=== PATIENT | male | born 1940 | race Caucasian/White ===

== ENCOUNTER 2018-03-07 16:31 | Emergency (ER) | payer MEDICARE, OTHER, SELFPAY ==
[2018-03-07 16:52] VITALS: BP 157/88; PULSE 78; RESP 20; TEMP 36.6; O2SAT 96; BMI 30.4
--- NOTE | 2018-03-07 18:19 | PC.NURSE ---
pt reports several weeks of intermittent rt side low back/flank pain, reports worsening with supine position when at its worst, pt states he believes this began after a procedure in which he describes a urinary catheter placement and removal, also reports urinary dribbling that has worsened since this procedure. Abd large/round/soft/nontender, denies nausea/vomiting/diarrhea/dysuria/fever/trauma or other sx
[2018-03-07 18:29] LABS: Appearance Urine UA CLEAR; Bilirubin Urine UA NEGATIVE (NEGATIVE); Color Urine UA YELLOW; Glucose Urine UA 1+ g/dL (Normal); Ketones Urine UA NEGATIVE (NEGATIVE); Leukocyte Esterase Urine UA 1+ (NEGATIVE); Nitrite Urine UA Negative (Negative); Occult Blood Urine UA TRACE-LYSED (Negative); Protein Urine UA TRACE (Negative); Specific Gravity Urine UA 1.025 (1.000-1.035); Urobilinogen Urine UA 0.2 E.U./dL (0.2)
[2018-03-07 18:30] VITALS: BP 154/71; PULSE 81; RESP 17; O2SAT 97
[2018-03-07 18:41] LABS: Amorphous Sediment Urine 1+; Bacteria Urine Few (2-10); Culture Indicated Urine Specimen Cultured; Mucus Urine 2+ (Negative); RBC Urine 0-1/HPF (0-5/HPF); Squamous Epithelial Cell Urine 5-10 /HPF; WBC Urine 10-30/HPF (0-5/HPF)
[2018-03-07 20:01] VITALS: BP 153/79; PULSE 84; RESP 18; O2SAT 97
--- NOTE | 2018-03-08 02:13 | ED_ITS ---
HPI - Back Pain/Injury General Chief Complaint: Back Pain/Injury Stated Complaint: PAIN FEELS LIKE KIDNEY Time Seen by Provider: 03/07/18 17:26 Source: patient and family Mode of arrival: ambulatory Limitations: no limitations History of Present Illness HPI Narrative: 77-year-old male presents with a history of a few days of dysuria , frequency and urgency and now left back pain. He denies systemic symptoms such as fever, chills nor nausea or vomiting. He is otherwise well and free of complaint. His pain is worse with motion and improves with rest. MD Complaint: back pain Onset (ago): day(s) Duration: constant Similar Symptoms Previously: No Location: left flank Severity: moderate Radiation: none Relieving factors: none Exacerbating factors: none Associated symptoms: denies other symptoms Related Data Home Medications Medication Instructions Recorded Confirmed lisinopril-hydrochlorothiazide 1 tab PO QDAY #0 10/07/16 03/07/18 aspirin 81 mg PO QDAY #0 01/14/17 bisacodyl [Correctol] 2 tab PO HSP PRN #0 01/14/17 buspirone 1 tab PO BID 03/07/18 03/07/18 carvedilol 1 tab PO DAILY 03/07/18 03/07/18 citalopram 20 mg PO DAILY 03/07/18 03/07/18 clopidogrel 75 mg PO DAILY 03/07/18 03/07/18 insulin glargine [Lantus Solostar 30 units SUB-Q QPM 03/07/18 03/07/18 U-100 Insulin] pantoprazole 1 tab PO DAILY 03/07/18 03/07/18 pravastatin 20 mg PO DAILY 03/07/18 03/07/18 terazosin 1 mg PO DAILY 03/07/18 03/07/18 Previous Rx's Medication Instructions Recorded cephalexin [Keflex] 500 mg PO QID 14 Days #56 cap 03/07/18 ibuprofen 600 mg PO TID-QID PRN #20 tab 03/07/18 Allergies Allergy/AdvReac Type Severity Reaction Status Date / Time Sulfa (Sulfonamide Allergy Mild CHILDHOOD Verified 03/07/18 16:58 Antibiotics) REACTION Review of Systems Review of Systems All systems reviewed & are unremarkable except as noted in HPI and below Constitutional Denies chills, Denies fever(s), Denies lethargy and Denies weakness Eyes Denies change in vision, Denies eye discharge, Denies irritation and Denies loss of vision ENT Ears, Nose, Mouth, and Throat: Denies change in voice, Denies neck pain and Denies sore throat Cardiovascular Denies chest pain, Denies irregular heart rhythm, Denies lightheadedness, Denies palpitations, Denies dyspnea, Denies dyspnea on exertion and Denies orthopnea Respiratory Denies cough, Denies dyspnea, Denies dyspnea on exertion and Denies wheezing Gastrointestinal Gastrointestinal: Denies abdominal pain, Denies change in bowel habits, Denies diarrhea, Denies nausea and Denies vomiting Genitourinary Denies hematuria, Reports flank pain, Reports urinary frequency, Denies urinary incontinence and Reports urinary urgency Musculoskeletal Denies neck pain Integumentary/Breasts Denies pruritus, Denies erythema, Denies rash and Denies wounds Neurologic Denies confusion, Denies loss of vision and Denies weakness Psychiatric Denies anxiety, Denies confusion, Denies depression, Denies homicidal ideation and Denies suicidal ideation Endocrine Denies palpitations Hematologic/Lymphatic Denies easy bruising Allergic/Immunologic Denies wheezing [facility] Social History Smoking Status: Former smoker Exam Narrative Exam Narrative: GEN: AOx3 and in mild distress EYES: Pupils are equal, round, and reactive to light and accommodation. Extraoccular muscles are intact bilaterally. There is no subconjunctival hemorrhage or exudate. CHEST: Lungs are clear to auscultation bilaterally and free of wheezes, rales, or rhonchi. Heart rate is regular rhythm, there are no murmurs, clicks, rubs, or gallops. There is no chest wall tenderness. ABD: Abdomen is soft and nontender. There is no guarding or rebound. Bowel sounds are normal in all 4 quadrants. There is no mass or organomegaly. EXT: Full painless ROM of all extremities with no loss of sensation or strength. SKIN: Warm, pink, and dry. No erythema or rash BACK: indigo vat tender cloth but free of any obvious external abnormalities. Patient exam notes decreased range of motion and mild left CVA tenderness, but no vertebral point tenderness. There are no symptoms of cauda equina such as saddle anesthesia, and decreased reflexes, decreased sensation or strength. Initial Vital Signs Initial Vital Signs: Vital Signs Temperature 97.8 F 03/07/18 16:52 Pulse Rate 78 03/07/18 16:52 Respiratory Rate 20 03/07/18 16:52 Blood Pressure 157/88 H 03/07/18 16:52 Pulse Oximetry 96 03/07/18 16:52 Course Orders Ordered: ED Orders 03/07/18 18:24 Urinalysis and Microscopic Stat Urine Culture Stat Vital Signs - 8 hr 03/07/18 18:30 03/07/18 20:01 Pulse Rate 81 84 Respiratory Rate 17 18 Blood Pressure 153/79 H Blood Pressure [Right Arm] 154/71 H Pulse Oximetry 97 97 MDM - Back Pain/Injury Differential Diagnosis Differential diagnosis: Likely renal colic, pyelonephritis, thoracic back pain and AAA Medical Records Attestation: I reviewed the patient's medical records. Lab Data Attestation: I reviewed the patient's lab results. Lab Results 03/07/18 Range/Units 18:24 Urine Color Yellow Urine Appearance Clear Urine pH 5.0 (4.5-8.0) Ur Specific [place] 1.025 (1.000-1.035) Urine Protein Trace H (Negative) Urine Glucose (UA) 1+ (Normal) g/dL Urine Ketones Negative (NEGATIVE) Urine Occult Blood Trace-lysed (Negative) Urine Nitrate Negative (Negative) Urine Bilirubin Negative (NEGATIVE) Urine Urobilinogen 0.2 (0.2) E.U./dL Ur Leukocyte Esterase 1+ H (NEGATIVE) Urine RBC 0-1/hpf (0-5/HPF) Urine WBC 10-30/hpf H (0-5/HPF) Ur Squamous Epith Cells 5-10 /hpf H Amorphous Sediment 1+ Urine Bacteria Few (2-10) H (None) Urine Mucus 2+ H (Negative) Ur Culture Indicated? Specimen cultured Micro UA Comment Not Reportable Discharge Plan Departure Patient Disposition: Home Clinical Impression: Acute pyelonephritis Discharge Date/Time: 03/07/18 20:01 Interventions: ED Discharge Assessment Last Done: 03/07/18 20:01 Instructions: DI for Kidney Infection Activity Restrictions/Additional Instructions: *You have been diagnosed with [ acute pyelonephritis with right flank pain] *What to do: *Take medications as directed *Follow up with your primary care provider in 2-3 days, call for an appointment. Let them know you were seen in the Emergency Department and that we ask that you be seen in follow up *Return to ER if you should have any new, worsening or concerning symptoms , such as [fever over 101, shaking chills, weakness, nausea and vomiting, other bothersome symptoms ] Prescriptions: New cephalexin [Keflex] 500 mg capsule 500 mg PO QID 14 Days Qty: 56 RF: 0 ibuprofen 600 mg tablet 600 mg PO TID-QID PRN (Reason: pain) Qty: 20 RF: 0 No Action lisinopril-hydrochlorothiazide 20 MG/25 MG tablet 1 tab PO QDAY Qty: 0 RF: 0 aspirin 81 MG tablet,delayed release (DR/EC) 81 mg PO QDAY Qty: 0 RF: 0 bisacodyl [Correctol] 5 MG tablet 2 tab PO HSP PRNQty: 0 RF: 0 carvedilol 12.5 mg tablet 1 tab PO DAILY RF: 0 clopidogrel 75 mg tablet 75 mg PO DAILY RF: 0 terazosin 1 mg capsule 1 mg PO DAILY RF: 0 citalopram 20 mg tablet 20 mg PO DAILY RF: 0 pantoprazole 40 mg tablet,delayed release (DR/EC) 1 tab PO DAILY RF: 0 buspirone 10 mg tablet 1 tab PO BID RF: 0 pravastatin 20 mg tablet 20 mg PO DAILY RF: 0 insulin glargine [Lantus Solostar U-100 Insulin] 100 unit/mL (3 mL) insulin pen 30 units Sub-Q QPM RF: 0
== END 2018-03-07 20:01 | disposition home or self-care (01) ==
PROVIDERS: Emergency Provider Emergency Medicine
DX: N10 Acute pyelonephritis (principal)
CPT/HCPCS: 81001; 87086; 87147; 87186; 99282; 99283

== ENCOUNTER 2018-07-10 13:39 | Emergency (ER) | payer MEDICARE, OTHER, SELFPAY ==
[2018-07-10 13:43] VITALS: BP 193/123; PULSE 102; RESP 18; TEMP 37.4; O2SAT 96; BMI 28.8
--- NOTE | 2018-07-10 14:45 | DI.RAD.S_ITS ---
PROCEDURE: XR LUMBAR SPINE 2-3V INDICATIONS: fall with hip/back pain TECHNIQUE: 3 views of the lumbar spine were acquired. COMPARISON: [facility], CT, L-SPINE WITHOUT CONTRAST, 10/05/2016, 17:13. FINDINGS: Bones: 5 [id number] vertebrae are present. There is normal bony alignment. No vertebral body compression fractures. No suspicious bony lesions. There is moderate degenerative disc disease in lumbar spine and multiple large osteophytes. There is severe facet arthropathy at L3 and L4, L4-L5 and L5-S1. Soft tissues: Overlying bowel gas pattern is normal. Vascular calcifications consistent with atherosclerosis. IMPRESSION: 1. No fractures. 2. Degenerative disc and facet disease. Dictated by: John Olivares M.D. on 07/10/2018 at 15:22 Approved by: John Olivares M.D. on 07/10/2018 at 15:35
--- NOTE | 2018-07-10 14:45 | DI.RAD.S_ITS ---
PROCEDURE: XR HIP W PEL IF DONE RT 2V INDICATIONS: fall with hip, back pain TECHNIQUE: AP pelvis with lateral view(s) of the right hip(s). COMPARISON: [facility], , ABDOMEN ACUTE SERIES, 01/30/2016, 13:45. FINDINGS: Bones: No fractures or dislocations. Pelvic ring appears intact. No suspicious bony lesions. Soft tissues: The visualized bowel gas pattern is normal. No suspicious soft tissue calcifications. IMPRESSION: No fracture or dislocation. If clinical symptoms persist, a repeat examination in 7-10 days, or advanced imaging such as CT or MRI is suggested for further evaluation. Dictated by: John Olivares M.D. on 07/10/2018 at 15:19 Approved by: John Olivares M.D. on 07/10/2018 at 15:20
--- NOTE | 2018-07-10 14:54 | ED_ITS ---
HPI - Fall General Chief Complaint: Fall Stated Complaint: Severe hip/leg pain, urinary issues Time Seen by Provider: 07/10/18 14:15 Source: patient and family Mode of arrival: other Limitations: no limitations History of Present Illness HPI Narrative: 78-year-old former smoker presents with a chief complaint of ongoing right hip and low back pain after a ground level fall few weeks ago. He was kneeling on the ground and fell awkwardly to his side is had significant pain ever since. He requires a walker to ambulate safely. He denies any other falls. He denies any change in bowel or bladder control. He denies numbness or tingling but does have pain that radiates down his lateral thigh. complaint: fall Onset (ago): week(s) Fall from: other Fall witnessed: yes, by family Place fall occurred: home Loss of consciousness: none Prolonged down time: no Symptoms prior to fall: none Context: tripped/slipped Location of injury - extremities: Right: thigh Quality: burning, sharp and aching Associated symptoms (after fall): denies Related Data Home Medications Medication Instructions Recorded Confirmed lisinopril-hydrochlorothiazide 1 tab PO QDAY #0 10/07/16 03/07/18 aspirin 81 mg PO QDAY #0 01/14/17 bisacodyl [Correctol] 2 tab PO HSP PRN #0 01/14/17 buspirone 1 tab PO BID 03/07/18 03/07/18 carvedilol 1 tab PO DAILY 03/07/18 03/07/18 citalopram 20 mg PO DAILY 03/07/18 03/07/18 clopidogrel 75 mg PO DAILY 03/07/18 03/07/18 insulin glargine [Lantus Solostar 30 units SUB-Q QPM 03/07/18 03/07/18 U-100 Insulin] pantoprazole 1 tab PO DAILY 03/07/18 03/07/18 pravastatin 20 mg PO DAILY 03/07/18 03/07/18 terazosin 1 mg PO DAILY 03/07/18 03/07/18 Previous Rx's Medication Instructions Recorded ibuprofen 600 mg PO TID-QID PRN #20 tab 03/07/18 cyclobenzaprine 10 mg PO TID PRN #14 tab 07/10/18 oxycodone 5 mg PO Q4-6H PRN #14 tab 07/10/18 Allergies Allergy/AdvReac Type Severity Reaction Status Date / Time Sulfa (Sulfonamide Allergy Mild CHILDHOOD Verified 07/10/18 13:48 Antibiotics) REACTION Review of Systems Review of Systems All systems reviewed & are unremarkable except as noted in HPI and below Constitutional Denies chills, Denies fever(s), Denies lethargy and Denies weakness Eyes Denies change in vision, Denies eye discharge, Denies irritation and Denies loss of vision ENT Ears, Nose, Mouth, and Throat: Denies change in voice, Denies neck pain and Denies sore throat Cardiovascular Denies chest pain, Denies irregular heart rhythm, Denies lightheadedness, Denies palpitations, Denies dyspnea, Denies dyspnea on exertion and Denies orthopnea Respiratory Denies cough, Denies dyspnea, Denies dyspnea on exertion and Denies wheezing Gastrointestinal Gastrointestinal: Denies abdominal pain, Denies change in bowel habits, Denies diarrhea, Denies nausea and Denies vomiting Genitourinary Denies hematuria, Denies flank pain, Denies urinary incontinence and Denies urinary urgency Musculoskeletal Reports back pain and Denies neck pain Integumentary/Breasts Denies pruritus, Denies erythema, Denies rash and Denies wounds Neurologic Denies confusion, Denies loss of vision and Denies weakness Psychiatric Denies anxiety, Denies confusion, Denies depression, Denies homicidal ideation and Denies suicidal ideation Endocrine Denies palpitations Hematologic/Lymphatic Denies easy bruising Allergic/Immunologic Denies wheezing Exam Narrative Exam Narrative: GEN: 78M is in moderate distress, clutching his R hip EYES: Pupils are equal, round, and reactive to light and accommodation. Extraoccular muscles are intact bilaterally. There is no subconjunctival hemorrhage or exudate. CHEST: Lungs are clear to auscultation bilaterally and free of wheezes, rales, or rhonchi. Heart rate is regular rhythm, there are no murmurs, clicks, rubs, or gallops. There is no chest wall tenderness. ABD: Abdomen is soft and nontender. There is no guarding or rebound. Bowel sounds are normal in all 4 quadrants. There is no mass or organomegaly. EXT: Decreased range of motion at right hip, worse with motion improved with rest. No numbness, tingling or weakness. SKIN: Warm, pink, and dry. No erythema or rash BACK: glass cleaning machine tender but free of any obvious external abnormalities. Patient exam notes decreased range of motion and muscle spasm, but no CVA tenderness, or vertebral point tenderness. There are no symptoms of cauda equina such as saddle anesthesia, and decreased reflexes, decreased sensation or strength. Initial Vital Signs Initial Vital Signs: Vital Signs Temperature 99.3 F 07/10/18 13:43 Pulse Rate 102 H 07/10/18 13:43 Respiratory Rate 18 07/10/18 13:43 Blood Pressure 193/123 H 07/10/18 13:43 Pulse Oximetry 96 07/10/18 13:43 PFS Social History Smoking Status: Former smoker Course Orders Ordered: ED Orders 07/10/18 14:45 XR hip w pel if done RT 2V Stat XR lumbar spine 2-3V Stat 07/10/18 15:42 CT pelvis wo con Stat Discontinued Medications Cyclobenzaprine HCl (Flexeril 10 Mg Prepack) 1 bottle MISC SEEINSTR ONE Stop: 07/10/18 17:31 Oxycodone/Acetaminophen (Percocet 5/325) 1 tab PO NOW ONE Stop: 07/10/18 14:46 Last Admin: 07/10/18 15:12 Dose: 1 tab Oxycodone/Acetaminophen (Endocet 5/325 Prepack) 1 bottle MISC SEEINSTR ONE Stop: 07/10/18 17:31 Vital Signs - 8 hr 07/10/18 13:43 Temperature 99.3 F Pulse Rate 102 H Respiratory Rate 18 Blood Pressure 193/123 H Pulse Oximetry 96 [facility] Medical Records Attestation: I reviewed the patient's medical records. Imaging Data pelvic CT: Radiologist's impression: [address] [address] [address] Scan Report Signed Patient: Morro Diaz MR#: [id number] : 1940 Acct:[id number] Age/Sex: 78 / M Date of Service: 07/10/18 Loc: ED Accession Number: [id number] Procedure: CT pelvis wo con Ordering Provider: Jonatan Sparks D.O. PROCEDURE: CT PEL WO CON INDICATIONS: severe R hip pain TECHNIQUE: Noncontrast 3 mm axial sections acquired through the bony pelvis, with coronal and sagittal reformatting. COMPARISON: [facility], CR, PELVIS W UNILATERAL HIP LEFT, 07/31/2013, 15: 25. [facility], CR, XR HIP W PEL IF DONE RT 2V, 07/10/2018, 14:59. FINDINGS: Image quality: Excellent. Bones: No fracture or dislocation. There is moderate symmetric bilateral hip joint degeneration. There are multiple osteophytes arising from greater trochanters. Soft tissues: No soft tissue mass or hematoma. There is deformity and calcification of the right rectus abdominis muscle, probably sequelae of old trauma or surgery. Bladder is semi-contracted. Bladder wall appears thickened. There is enlargement and calcification of the prostate. IMPRESSION: 1. No fractures. If clinical symptoms persist and clinical suspicion for internal derangement of the right hip joint is high, nonurgent MR hip arthrogram is suggested for further evaluation. 2. Bilateral moderate hip joint degeneration. 3. Multiple large osteophytes arising from greater trochanters bilaterally. 4. Deformity and calcification of right rectus abdominis muscle, likely sequelae of old trauma or surgery. Recommend clinical correlation. 5. Question of bladder wall thickening, which may be secondary to bladder outlet obstruction or cystitis. 6. Enlarged prostate. Dictated by: John Olivares M.D. on 07/10/2018 at 17:09 Approved by: John Olivares M.D. on 07/10/2018 at 17:19 MDM Narrative Medical decision making narrative: 78-year-old with right hip pain after fall has negative x-ray and CT suggesting low likelihood of bony injury. He does have some radiation of pain along his lateral thigh which raises the suspicion of a muscular problem in his low back. He does feel some relief with Percocet Discharge Plan Departure Patient Disposition: Home Clinical Impression: Acute hip pain Instructions: DI for Hip Pain Activity Restrictions/Additional Instructions: *You have been diagnosed with [ acute right hip pain ] *What to do: *Take medications as directed *Follow up with your primary care provider in 2-3 days, call for an appointment. Let them know you were seen in the Emergency Department and that we ask that you be seen in follow up *Return to ER if you should have any new, worsening or concerning symptoms Prescriptions: New cyclobenzaprine 10 mg tablet 10 mg PO TID PRN (Reason: muscle spasm) Qty: 14 RF: 0 oxycodone 5 mg tablet 5 mg PO Q4-6H PRN (Reason: pain) Qty: 14 RF: 0 No Action lisinopril-hydrochlorothiazide 20 MG/25 MG tablet 1 tab PO QDAY Qty: 0 RF: 0 aspirin 81 MG tablet,delayed release (DR/EC) 81 mg PO QDAY Qty: 0 RF: 0 bisacodyl [Correctol] 5 MG tablet 2 tab PO HSP PRNQty: 0 RF: 0 carvedilol 12.5 mg tablet 1 tab PO DAILY RF: 0 clopidogrel 75 mg tablet 75 mg PO DAILY RF: 0 terazosin 1 mg capsule 1 mg PO DAILY RF: 0 citalopram 20 mg tablet 20 mg PO DAILY RF: 0 pantoprazole 40 mg tablet,delayed release (DR/EC) 1 tab PO DAILY RF: 0 buspirone 10 mg tablet 1 tab PO BID RF: 0 pravastatin 20 mg tablet 20 mg PO DAILY RF: 0 insulin glargine [Lantus Solostar U-100 Insulin] 100 unit/mL (3 mL) insulin pen 30 units Sub-Q QPM RF: 0 ibuprofen 600 mg tablet 600 mg PO TID-QID PRN (Reason: pain) Qty: 20 RF: 0
[2018-07-10] MEDS: OXYCODONE/ACETAMINOPHEN 5/325 TABLET 1 TAB PO (15:12)
--- NOTE | 2018-07-10 15:42 | DI.CT.S_ITS ---
PROCEDURE: CT PEL WO CON INDICATIONS: severe R hip pain TECHNIQUE: Noncontrast 3 mm axial sections acquired through the bony pelvis, with coronal and sagittal reformatting. COMPARISON: [facility], CR, PELVIS W UNILATERAL HIP LEFT, 07/31/2013, 15:25. [facility], CR, XR HIP W PEL IF DONE RT 2V, 07/10/2018, 14:59. FINDINGS: Image quality: Excellent. Bones: No fracture or dislocation. There is moderate symmetric bilateral hip joint degeneration. There are multiple osteophytes arising from greater trochanters. Soft tissues: No soft tissue mass or hematoma. There is deformity and calcification of the right rectus abdominis muscle, probably sequelae of old trauma or surgery. Bladder is semi-contracted. Bladder wall appears thickened. There is enlargement and calcification of the prostate. IMPRESSION: 1. No fractures. If clinical symptoms persist and clinical suspicion for internal derangement of the right hip joint is high, nonurgent MR hip arthrogram is suggested for further evaluation. 2. Bilateral moderate hip joint degeneration. 3. Multiple large osteophytes arising from greater trochanters bilaterally. 4. Deformity and calcification of right rectus abdominis muscle, likely sequelae of old trauma or surgery. Recommend clinical correlation. 5. Question of bladder wall thickening, which may be secondary to bladder outlet obstruction or cystitis. 6. Enlarged prostate. Dictated by: John Olivares M.D. on 07/10/2018 at 17:09 Approved by: John Olivares M.D. on 07/10/2018 at 17:19
[2018-07-10 17:49] VITALS: BP 196/73; PULSE 69; RESP 16; O2SAT 97
[2018-07-10] MEDS: OXYCODONE/APAP 5/325 PREPACK 1 BOTTLE MISC (17:49)
[2018-07-10] MEDS: CYCLOBENZAPRINE 10 MG PREPACK 1 BOTTLE MISC (17:49)
== END 2018-07-10 18:11 | disposition home or self-care (01) ==
PROVIDERS: Emergency Provider Emergency Medicine
DX: M25.559 Pain in unspecified hip (principal)
CPT/HCPCS: 51798; 72100; 72192; 73502; 81003; 99283; 99284

== ENCOUNTER 2018-07-15 11:06 | Emergency (ER) | payer MEDICARE, OTHER, SELFPAY ==
[2018-07-15 11:13] VITALS: BP 204/107; PULSE 95; RESP 19; TEMP 36.8; O2SAT 96
--- NOTE | 2018-07-15 11:23 | ED.BACK ---
HPI - Back Pain/Injury General Chief Complaint: Back Pain/Injury Stated Complaint: Back Pain / GLF last week Time Seen by Provider: 07/15/18 11:23 Source: patient and old records reviewed Mode of arrival: EMS (but able to get off gurney and get onto bed without issue) Limitations: no limitations History of Present Illness HPI Narrative: This a 78-year-old male who comes to the emergency department with complaint of back pain. Patient states he was sitting on the floor and that he did not have a fall. He states he twisted and had exacerbation of his chronic back pain. Patient states that he has not had any other recent falls or injuries. He has had falls in the past and had injuries to his back. Patient states it is the right lower back, it is worse with motion. Patient denies any new loss of bowel or bladder control. Patient denies any new weakness in his lower extremities, he denies any numbness or tingling in his extremities. He denies any chest pain, shortness of breath, nausea vomiting or other symptoms. Patient was able to get up off the EMS gurney and was able to get onto the bed without issue. Related Data Home Medications Medication Instructions Recorded Confirmed bisacodyl [Correctol] 2 tab PO BEDTIME PRN #0 01/14/17 07/15/18 buspirone 1 tab PO BID 03/07/18 07/15/18 carvedilol 1 tab PO DAILY 03/07/18 07/15/18 citalopram 20 mg PO DAILY 03/07/18 07/15/18 clopidogrel 75 mg PO DAILY 03/07/18 07/15/18 insulin glargine [Lantus Solostar 35 units SUB-Q QPM 03/07/18 07/15/18 U-100 Insulin] pantoprazole 1 tab PO DAILY 03/07/18 07/15/18 pravastatin 20 mg PO QPM 03/07/18 07/15/18 terazosin 1 mg PO DAILY 03/07/18 07/15/18 trazodone 50 mg PO QPM 07/15/18 07/15/18 Previous Rx's Medication Instructions Recorded ibuprofen 600 mg PO TID-QID PRN #20 tab 03/07/18 cyclobenzaprine 10 mg PO TID PRN #14 tab 12/23/18 oxycodone 5 mg PO Q4-6H PRN #14 tab 07/10/18 Allergies Allergy/AdvReac Type Severity Reaction Status Date / Time Sulfa (Sulfonamide Allergy Mild CHILDHOOD Verified 07/10/18 13:48 Antibiotics) REACTION Review of Systems Review of Systems All systems reviewed & are unremarkable except as noted in HPI and below Constitutional Denies fever(s) ENT Ears, Nose, Mouth, and Throat: Denies neck pain Cardiovascular Denies chest pain and Denies dyspnea Respiratory Denies dyspnea Gastrointestinal Gastrointestinal: Denies abdominal pain, Denies change in bowel habits, Denies fecal incontinence, Denies diarrhea, Denies nausea and Denies vomiting Genitourinary Denies hematuria, Denies flank pain, Reports urinary incontinence and Denies urinary urgency Musculoskeletal Denies abnormal gait, Reports back pain, Denies arthralgias, Reports limited range of motion, Denies muscle weakness, Denies neck pain, Denies numbness, Denies radiating pain into limb and Denies tingling Integumentary/Breasts Denies erythema and Denies unusual bruising Neurologic Denies abnormal gait, Denies focal weakness, Denies numbness, Denies sensory deficit and Denies tingling [facility] Social History Smoking Status: Former smoker Exam Narrative Exam Narrative: GENERAL: Alert and oriented x three, elderly male in mild distress. HEENT: Head normocephalic, atraumatic, EOMI, pupils reactive, face symmetric, moist mucous membranes NECK: Supple, full range of motion CARDIOVASCULAR: Regular rate and rhythm without murmurs, rubs or gallops. RESPIRATORY: Breath sounds equal bilaterally, no wheezes rales or rhonchi. ABDOMEN: Soft, nontender. Normoactive bowel sounds all 4 quadrants. No guarding or rebound, rigidity, no mass : No CVA tenderness BACK: No cervical, thoracic or lumbar vertebral point tenderness. Patient has normal range of motion, patient is able to roll over in the bed without any assistance. Patient's gait is normal. Rectal exam is deferred. Muscle strength is 5/5 in lower extremities, DTRs are 2/4 and lower extremities. Dorsalis pedis and tibialis pulses are 2+ and lower extremities. Sensation is intact in the lower extremities. EXTREMITIES: Normal range of motion, no clubbing or edema. Neurovascularly intact NEUROLOGICAL: Cranial nerves II through XII grossly intact. Moving all extremities SKIN: Warm, dry, no petechiae, no rashes or lesions. Initial Vital Signs Initial Vital Signs: Vital Signs Temperature 98.2 F 07/15/18 11:13 Pulse Rate 95 H 07/15/18 11:13 Respiratory Rate 19 07/15/18 11:13 Blood Pressure 204/107 H 07/15/18 11:13 Pulse Oximetry 96 07/15/18 11:13 Course Orders Ordered: Discontinued Medications Cyclobenzaprine HCl (Flexeril) 10 mg PO NOW ONE Stop: 07/15/18 11:24 Last Admin: 07/15/18 11:48 Dose: 10 mg Oxycodone/Acetaminophen (Percocet 5/325) 1 tab PO NOW ONE Stop: 07/15/18 11:24 Last Admin: 07/15/18 11:48 Dose: 1 tab Vital Signs - 8 hr 07/15/18 11:13 07/15/18 12:42 07/15/18 14:09 Temperature 98.2 F Pulse Rate 95 H 85 Respiratory Rate 19 15 Blood Pressure 204/107 H 139/75 Blood Pressure [Right Arm] 178/83 H Pulse Oximetry 96 96 MDM - Back Pain/Injury MDM Narrative Medical decision making narrative: Patient's prior visits were reviewed, he has had recent imaging of his back which did not show any acute fractures but did show a lot of arthritic changes. Patient also responded well to oxycodone in the emergency department and was given a dose here as well as Flexeril. Patient was able to sleep and then ambulated about department without issue. Called who states he has not had his normal meds or back pain medication today. Plan for discharge home as patient has improved without any signs of serious trauma or illness today. Patient was hypertensive but blood pressure improved while in department, was still elevated but not to such as significant level. Patient can restart medications at home. Discharge Plan Departure Patient Disposition: Home Clinical Impression: Back pain Discharge Date/Time: 07/15/18 14:10 Interventions: ED Discharge Assessment Last Done: 07/15/18 14:09 Instructions: DI for Low Back Pain Activity Restrictions/Additional Instructions: Follow up with your physician in the next 2-3 days for recheck. Continue to take your back pain medication as prescribed. I would try taking this before becoming to the ER if you're having symptoms. Return to the ER for worsening symptoms, fevers, altered mental status, new chest pain, shortness of breath, passing out, new weakness, numbness or loss of feeling in your extremities, difficulty with movement or other new or concerning symptoms. Prescriptions: No Action bisacodyl [Correctol] 5 MG tablet 2 tab PO BEDTIME PRN (Reason: Constipation) Qty: 0 RF: 0 carvedilol 12.5 mg tablet 1 tab PO DAILY RF: 0 clopidogrel 75 mg tablet 75 mg PO DAILY RF: 0 terazosin 1 mg capsule 1 mg PO DAILY RF: 0 citalopram 20 mg tablet 20 mg PO DAILY RF: 0 pantoprazole 40 mg tablet,delayed release (DR/EC) 1 tab PO DAILY RF: 0 buspirone 10 mg tablet 1 tab PO BID RF: 0 pravastatin 20 mg tablet 20 mg PO QPM RF: 0 insulin glargine [Lantus Solostar U-100 Insulin] 100 unit/mL (3 mL) insulin pen 35 units Sub-Q QPM RF: 0 ibuprofen 600 mg tablet 600 mg PO TID-QID PRN (Reason: pain) Qty: 20 RF: 0 cyclobenzaprine 10 mg tablet 10 mg PO TID PRN (Reason: muscle spasm) Qty: 14 RF: 0 oxycodone 5 mg tablet 5 mg PO Q4-6H PRN (Reason: pain) Qty: 14 RF: 0 trazodone 50 mg tablet 50 mg PO QPM RF: 0
[2018-07-15] MEDS: OXYCODONE/ACETAMINOPHEN 5/325 TABLET 1 TAB PO (11:48)
[2018-07-15] MEDS: CYCLOBENZAPRINE 10 MG TABLET PO (11:48)
[2018-07-15 12:42] VITALS: BP 178/83
[2018-07-15 14:09] VITALS: BP 139/75; PULSE 85; RESP 15; O2SAT 96
== END 2018-07-15 14:10 | disposition home or self-care (01) ==
PROVIDERS: Emergency Provider Emergency Medicine
DX: M54.9 Dorsalgia, unspecified (principal)
CPT/HCPCS: 99282; 99283

== ENCOUNTER 2018-10-25 19:56 | Emergency (ER) | payer MEDICARE, OTHER, SELFPAY ==
[2018-10-25 19:54] VITALS: BP 147/67; PULSE 73; RESP 16; TEMP 36.5; O2SAT 97; BMI 28.1
--- NOTE | 2018-10-25 20:10 | ED.RECABL ---
HPI - Recheck/Abnormal Lab/Rx General Chief Complaint: Recheck/Abnormal Lab/Rx Stated Complaint: Med Check Time Seen by Provider: 10/25/18 20:09 Source: patient, family and EMS Mode of arrival: EMS Limitations: no limitations History of Present Illness HPI narrative: A 78-year-old male smoker in his normal state of health presents by EMS secondary to a desire to evaluate his home medications. He has no symptoms, no complaints and is otherwise well and free of complaint. EMS frequently sees him at his home as he is chronically ill and they help get him into bed. They presented again this evening for a lift assist and he began talking about medication reconciliation and despite their attempts to convince him that the ED isn't likely to make any changes he wanted to come. Furthermore his did not want him to come. MD complaint: other Symptoms since prior visit: no new symptoms Associated symptoms: none Related Data Home Medications Medication Instructions Recorded Confirmed bisacodyl [Correctol] 2 tab PO BEDTIME PRN #0 01/14/17 07/15/18 buspirone 1 tab PO BID 03/07/18 07/15/18 carvedilol 1 tab PO DAILY 03/07/18 07/15/18 citalopram 20 mg PO DAILY 03/07/18 07/15/18 clopidogrel 75 mg PO DAILY 03/07/18 07/15/18 insulin glargine [Lantus Solostar 35 units SUB-Q QPM 03/07/18 07/15/18 U-100 Insulin] pantoprazole 1 tab PO DAILY 03/07/18 07/15/18 pravastatin 20 mg PO QPM 03/07/18 07/15/18 terazosin 1 mg PO DAILY 03/07/18 07/15/18 trazodone 50 mg PO QPM 07/15/18 07/15/18 Previous Rx's Medication Instructions Recorded ibuprofen 600 mg PO TID-QID PRN #20 tab 03/07/18 cyclobenzaprine 10 mg PO TID PRN #14 tab 07/10/18 oxycodone 5 mg PO Q4-6H PRN #14 tab 07/10/18 Allergies Allergy/AdvReac Type Severity Reaction Status Date / Time Sulfa (Sulfonamide Allergy Mild CHILDHOOD Verified 07/10/18 13:48 Antibiotics) REACTION Review of Systems Constitutional Denies chills, Denies fever(s), Denies lethargy and Denies weakness Eyes Denies change in vision, Denies eye discharge, Denies irritation and Denies loss of vision ENT Ears, Nose, Mouth, and Throat: Denies change in voice, Denies neck pain and Denies sore throat Cardiovascular Denies chest pain, Denies irregular heart rhythm, Denies lightheadedness, Denies palpitations, Denies dyspnea, Denies dyspnea on exertion and Denies orthopnea Respiratory Denies cough, Denies dyspnea, Denies dyspnea on exertion and Denies wheezing Gastrointestinal Gastrointestinal: Denies abdominal pain, Denies change in bowel habits, Denies diarrhea, Denies nausea and Denies vomiting Genitourinary Denies hematuria, Denies flank pain, Denies urinary incontinence and Denies urinary urgency Musculoskeletal Denies neck pain Integumentary/Breasts Denies pruritus, Denies erythema, Denies rash and Denies wounds Neurologic Denies confusion, Denies loss of vision and Denies weakness Psychiatric Denies anxiety, Denies confusion, Denies depression, Denies homicidal ideation and Denies suicidal ideation Endocrine Denies palpitations Hematologic/Lymphatic Denies easy bruising Allergic/Immunologic Denies wheezing PFSH Social History Smoking Status: Former smoker Social History Smoking Status: Former smoker Exam Narrative Exam Narrative: GEN: AOx3 and in no obvious distress EYES: Pupils are equal, round, and reactive to light and accommodation. Extraoccular muscles are intact bilaterally. There is no subconjunctival hemorrhage or exudate. CHEST: Prolonged expiratory phase, decreased breath sounds. Heart rate is regular rhythm, there are no murmurs, clicks, rubs, or gallops. There is no chest wall tenderness. ABD: Abdomen is soft and nontender. There is no guarding or rebound. Bowel sounds are normal in all 4 quadrants. There is no mass or organomegaly. EXT: Full painless ROM of all extremities with no loss of sensation or strength. SKIN: Warm, pink, and dry. No erythema or rash Initial Vital Signs Initial Vital Signs: Vital Signs Temperature 97.7 F 10/25/18 19:54 Pulse Rate 73 10/25/18 19:54 Respiratory Rate 16 10/25/18 19:54 Blood Pressure 147/67 H 10/25/18 19:54 Pulse Oximetry 97 10/25/18 19:54 Course Orders Ordered: Discontinued Medications Sodium Chloride (Normal Saline 0.9%) 1,000 mls @ 1,000 mls/hr IV BOLUS ONE Stop: 10/25/18 22:05 Last Admin: 10/25/18 21:43 Dose: Not Given Reevaluation(s) Reevaluation #1: At time of history and physical patient thought it reasonable to perform basic labs for evaluation but soon after I left the room he and his state they change their mind. Patient has capacity to make this decision and insists that he will follow up with his primary care provider. He understands he may return to the emergency department immediately for any change of heart Vital Signs - 8 hr 10/25/18 19:54 Temperature 97.7 F Pulse Rate 73 Respiratory Rate 16 Blood Pressure 147/67 H Pulse Oximetry 97 Discharge Plan Departure Patient Disposition: Home Clinical Impression: Feared complaint without diagnosis Discharge Date/Time: 10/25/18 21:41 Interventions: ED Discharge Assessment Last Done: 10/25/18 21:41 Instructions: DI for Safely Taking and Storing Medications -- Adults Activity Restrictions/Additional Instructions: *You have been diagnosed with [ medical screening exam ] *What to do: *Continue [place] medications as directed *Follow up with your primary care provider in 2-3 days, call for an appointment. Let them know you were seen in the Emergency Department and that we ask that you be seen in follow up *Return to ER if you should have any new, worsening or concerning symptoms Prescriptions: No Action bisacodyl [Correctol] 5 MG tablet 2 tab PO BEDTIME PRN (Reason: Constipation) Qty: 0 RF: 0 carvedilol 12.5 mg tablet 1 tab PO DAILY RF: 0 clopidogrel 75 mg tablet 75 mg PO DAILY RF: 0 terazosin 1 mg capsule 1 mg PO DAILY RF: 0 citalopram 20 mg tablet 20 mg PO DAILY RF: 0 pantoprazole 40 mg tablet,delayed release (DR/EC) 1 tab PO DAILY RF: 0 buspirone 10 mg tablet 1 tab PO BID RF: 0 pravastatin 20 mg tablet 20 mg PO QPM RF: 0 insulin glargine [Lantus Solostar U-100 Insulin] 100 unit/mL (3 mL) insulin pen 35 units Sub-Q QPM RF: 0 ibuprofen 600 mg tablet 600 mg PO TID-QID PRN (Reason: pain) Qty: 20 RF: 0 cyclobenzaprine 10 mg tablet 10 mg PO TID PRN (Reason: muscle spasm) Qty: 14 RF: 0 oxycodone 5 mg tablet 5 mg PO Q4-6H PRN (Reason: pain) Qty: 14 RF: 0 trazodone 50 mg tablet 50 mg PO QPM RF: 0 Referrals: Reji Patterson MD [Primary Care Provider] -
[2018-10-25 21:41] VITALS: BP 158/81; PULSE 72; RESP 18; O2SAT 98
== END 2018-10-25 21:41 | disposition home or self-care (01) ==
PROVIDERS: Emergency Provider Emergency Medicine; Family Provider Internal Medicine; PCP Internal Medicine
DX: Z71.1 Person with feared health complaint in whom no diagnosis is made (principal)
CPT/HCPCS: 99281; 99282

== ENCOUNTER 2019-07-08 13:38 | Emergency (ER) | payer MEDICARE, OTHER, SELFPAY ==
[2019-07-08 13:38] VITALS: BP 155/81; PULSE 93; RESP 11; TEMP 36.7; O2SAT 95
--- NOTE | 2019-07-08 13:46 | ED.GENADULT ---
HPI - General Adult General Chief complaint: Diabetic Problem Stated complaint: hypoglycemia Time Seen by Provider: 07/08/19 13:39 Source: patient and EMS Mode of arrival: EMS Limitations: no limitations History of Present Illness HPI narrative: This is a 79-year-old male who comes to the emergency department with complaint of hypoglycemia. According to EMS patient had a sugar in the 50s they state the patient took Glucophage tablet but did want to eat anything by mouth. They convinced him to eat a peanut butter sandwich and recheck his sugar and it was in the 40s. They gave him dextrose 10% and elected to transport. They states that he seems to be in his normal baseline with no new confusion. Patient himself is not having any complaints. Patient does have some difficulty with the year but otherwise knows that it's Tiffany understands his reason for being present. He denies any headaches, no chest pain, no abdominal pain. No shortness of breath. No nausea or vomiting. No issues with bowel movements. No new issues with urination. No swelling in his lower extremities. Patient denies any lightheadedness or dizziness. He is on insulin for diabetes family did not bring his medications with them and they are unsure of the dosage. They do state that he has a recent decrease in his insulin dose. Related Data Home Medications Medication Instructions Recorded Confirmed bisacodyl [Correctol] 2 tab PO BEDTIME PRN #0 01/14/17 07/15/18 buspirone 1 tab PO BID 03/07/18 07/15/18 carvedilol 1 tab PO DAILY 03/07/18 07/15/18 citalopram 20 mg PO DAILY 03/07/18 07/15/18 clopidogrel 75 mg PO DAILY 03/07/18 07/15/18 insulin glargine [Lantus Solostar 30 units SUB-Q QPM 03/07/18 07/08/19 U-100 Insulin] pantoprazole 1 tab PO DAILY 03/07/18 07/15/18 pravastatin 20 mg PO QPM 03/07/18 07/15/18 terazosin 1 mg PO DAILY 03/07/18 07/15/18 trazodone 50 mg PO QPM 07/15/18 07/15/18 Previous Rx's Medication Instructions Recorded ibuprofen 600 mg PO TID-QID PRN #20 tab 03/07/18 cyclobenzaprine 10 mg PO TID PRN #14 tab 07/10/18 oxycodone 5 mg PO Q4-6H PRN #14 tab 07/10/18 cephalexin [Keflex] 500 mg PO QID #28 cap 07/08/19 Allergies Allergy/AdvReac Type Severity Reaction Status Date / Time Sulfa (Sulfonamide Allergy Mild CHILDHOOD Verified 07/10/18 13:48 Antibiotics) REACTION Review of Systems Review of Systems ROS Unobtainable: All systems reviewed & are unremarkable except as noted in HPI and below Patient History Social History Smoking Status: Former smoker Smoking Status: Former smoker alcohol intake frequency: 0-2 drinks per day Substance Use Type: marijuana Exam Narrative Exam Narrative: GEN: well nourished, well appearing elderly male, alert and at baseline, patient appears to be in no acute distress. HEENT: Atraumatic, pupils are equal round reactive to light, extraocular movements are intact, nares are clear. Moist mucous membranes. HEART: Regular rate and rhythm without murmur, clicks, rubs. Pulses are equal in upper and lower extremities. No edema bilateral lower extremities. LUNGS:Lungs clear to auscultation, no wheezes, rales, crackles, chest moves symmetrically, No tachypnea, no accessory muscle use. ABD:bowel sounds normal, soft, non-tender, abdomen does appear distended but soft, no guarding, rebound, rigidity, no masses noted, no hepatosplenomegaly :No CVA tenderness MSCL: Non-tender, full range of motion of upper extremities. NEURO:CN 2-12 intact, sensation normal, GCS of 15 SKIN: No rash, no petechiae. Initial Vital Signs Initial Vital Signs: Vital Signs Temperature 98.1 F 07/08/19 13:38 Pulse Rate 93 H 07/08/19 13:38 Respiratory Rate 11 L 07/08/19 13:38 Blood Pressure 155/81 H 07/08/19 13:38 Pulse Oximetry 95 07/08/19 13:38 Scores GCS [place] coma scale eye opening: Spontaneous [place] coma scale verbal response: Orientated Jossy coma scale motor response: Obey commands Jossy coma scale total score: 15 Course Orders Ordered: ED Orders 07/08/19 13:47 XR abdomen min 2V Stat EKG-12 Lead Stat 07/08/19 13:56 Complete Blood Count AUTO DIFF Stat Comprehensive Metabolic Panel Stat Lipase Stat Troponin & CK Cardiac Panel Stat 07/08/19 16:00 Urine Culture Stat Urine Microscopic Stat Vital Signs Vital signs: Vital Signs - 8 hr 07/08/19 13:38 07/08/19 14:40 07/08/19 15:45 Temperature 98.1 F Pulse Rate 93 H 89 Respiratory Rate 11 L 16 13 Blood Pressure 155/81 H Blood Pressure [Left Arm] 137/75 159/82 H Pulse Oximetry 95 98 07/08/19 16:30 07/08/19 17:16 Temperature Pulse Rate 97 H 90 Respiratory Rate 19 17 Blood Pressure Blood Pressure [Left Arm] 130/84 127/76 Pulse Oximetry 95 95 Medical Decision Making Lab Data Lab results reviewed: Yes I reviewed the patient's lab results. Result diagrams: 07/08/19 13:56 07/08/19 13:56 Labs: Lab Results 07/08/19 07/08/19 07/08/19 Range/Units 13:56 13:56 16:00 WBC 8.7 (4.5-11.0) X10^3/uL RBC 4.06 L (4.5-5.9) X10^6/uL Hgb 13.1 L (13.5-17.5) g/dL Hct 38.1 L (41-53) % MCV 93.9 (80-100) fL MCH 32.2 (26-34) PG MCHC 34.3 (30-36) % RDW 13.7 (11.6-14.8) % Plt Count 209 (150-400) X10^3/uL Neut % (Auto) 75.5 H (50-75) % Lymph % (Auto) 14.3 L (25-40) % [place] % (Auto) 8.9 (3-14) % Eos % (Auto) 1.0 L (2-4) % Baso % (Auto) 0.3 (0-2) % Neut # (Auto) 6500 (1192-0004) /uL Lymph # (Auto) 1200 (4453-2169) /uL [place] # (Auto) 800 (0-900) /uL Eos # (Auto) 100 (0-450) /uL Baso # (Auto) 0 (0-100) /uL Sodium 139 (137-145) mmol/L Potassium 3.8 (3.4-5.1) mmol/L Chloride 102 (98-107) mmol/L Carbon Dioxide 29 (22-32) mmol/L BUN 16 (9-20) mg/dL Creatinine 0.70 (0.66-1.25) mg/dL Estimated GFR > 60.0 (>60) mL/min BUN/Creatinine Ratio 22.9 H (6-22) Glucose 170 H (80-110) mg/dL Calcium 8.6 (8.4-10.2) mg/dL Total Bilirubin 0.7 (0.2-1.3) mg/dL AST 24 (17-59) IU/L ALT 17 (<50) IU/L Alkaline Phosphatase 110 (38-126) U/L Total Creatine Kinase 85 (55-170) U/L CK-MB (CK-2) TNP CK-MB (CK-2) Rel Index TNP Troponin I < 0.012 (0.01-0.034) ng/mL Total Protein 6.4 (6.3-8.2) g/dL Albumin 3.8 (3.5-5.0) g/dL Globulin 2.6 (1.7-4.1) g/dL Albumin/Globulin Ratio 1.5 (1.0-2.8) Lipase < 10 L (23-300) U/L Urine RBC 5-10/hpf H (0-5/HPF) Urine WBC 10-30/hpf H (0-5/HPF) Ur Squamous Epith Cells 1-5 /hpf (0-5/HPF) Ur Transition Epith Cell 5-10/hpf H (0-5/HPF) Urine Bacteria Moderate (10-30) H (None) Urine Mucus 1+ H (Negative) Ur Culture Indicated? Specimen cultured Point of Care Testing Glucose POC 117 Urine Dip Bedside Urine Glucose Negative Bedside Urine Bilirubin - Negative Bedside Urine Ketone - Negative Urine Specific [place] 1.025 Bedside Urine Occult Blood - Negative Bedside Urine pH 6.0 Bedside Urine Protein + 30 Bedside Urine Urobilinogen - Negative Bedside Urine Nitrite - Negative Bedside Urine Leukocytes +++ 500 Esterase Point of care testing: Point of Care Testing Glucose POC 117 Urine Dip Bedside Urine Glucose Negative Bedside Urine Bilirubin - Negative Bedside Urine Ketone - Negative Urine Specific [place] 1.025 Bedside Urine Occult Blood - Negative Bedside Urine pH 6.0 Bedside Urine Protein + 30 Bedside Urine Urobilinogen - Negative Bedside Urine Nitrite - Negative Bedside Urine Leukocytes +++ 500 Esterase Imaging Data Abdominal x-ray: Radiologist's impression: Morro Diaz 79 [place] [address] XRay Report Signed Patient: Bryan DiazonyMR#: [id number] : [id number]:[id number] Age/Sex: 79 / MDate of Service: 07/08/19 Loc: ED Accession Number: [id number] Procedure: XR abdomen min 2V Ordering Provider: Alida Boone D.O. PROCEDURE: XR ABDOMEN MIN 2V INDICATIONS: hypoglycemia, abd distended, nontender. TECHNIQUE: 2 views of the abdomen were acquired. COMPARISON: [facility], , ABDOMEN 1 VIEW, 06/16/2015, 22:32. FINDINGS: Surgical changes and devices: None. Bowel: No pneumoperitoneum. There is a mildly dilated loops of small bowel seen within the central abdomen, which measures up to 3 cm. No pathologic air-fluid levels are seen. There is a moderate amount of stool seen within the proximal colon. Soft tissues: No masses; visualized solid organ contours appear normal in size. No suspicious abdominal calcifications. Bones: No suspicious bony abnormalities. Age-appropriate bony degenerative changes are seen. Mild dextroconvex scoliotic curvature is seen. IMPRESSION: Mild prominence of a loop of small bowel within the central abdomen, which is nonspecific. This is felt unlikely to represent a small bowel obstruction. There is a moderate amount of stool seen within the colon. Please correlate with an underlying history of constipation. Dictated by: Rubens Bliss M.D. on 07/08/2019 at 13:27 Approved by: Rubens Bliss M.D. on 07/08/2019 at 13:29 ECG Data Attestation: I personally reviewed and interpreted this ECG as follows: Prior ECG tracings: available for review Interpretation: Sinus rhythm rate of 90 DE 179 QRS of 102 QTC of 423. No ST elevation appreciated. No ST depression. Patient has prior from 01/13/2017 available which appears similar. MDM Narrative Medical decision making narrative: Patient's glucose on arrival is 173, plan for recheck in 30 mins to 1 hour. Labs do not show any acute findings to suggest an alternate cause for hypoglycemia. Patient is anemic but at baseline. Normal renal function and electrolytes. Negative troponin and EKG and patient has no other clear lab findings. Recheck glucose shows 170's and recheck in an additional hour is 117. Patient is otherwise asymptomatic. Urine shows findings concerning for infection. Started on antibiotics. Also discussed with he has had a decrease in his appetite is not eating as much so he may need to have a significant decrease in his Lantus dose as he is frequently having lows in the morning. Plan to decrease his Lantus by another 10 units to 20 units nightly and add an additional meal just before sleep. Discharge Plan Departure Patient Disposition: Home Clinical Impression: Hypoglycemia Discharge Date/Time: 07/08/19 17:40 Instructions: DI for Hypoglycemia Activity Restrictions/Additional Instructions: Follow up with your physician this week for recheck. Decrease your daily lantus dose to 20 units once daily. Continue to monitor glucose regularly and keep track of it. I would also recommend a snack that has protein or fat in it before bed time. Your urine shows possible infection which may be increasing issues with your sugar. Take antibiotics as prescribed, if urine culture shows resistance you should expect a call in 48-72 hours. Return to ER for fevers greater than 100.4F, new or worsening symptoms, recurrent episodes of hypoglycemia, altered mental status, new chest pain, shortness of breath, persistent vomiting, inability to have bowel movement and/or pass gas/flatus or other new or concerning symptoms. Prescriptions: New cephalexin [Keflex] 500 mg capsule 500 mg PO QID Qty: 28 RF: 0 No Action bisacodyl [Correctol] 5 MG tablet 2 tab PO BEDTIME PRN (Reason: Constipation) Qty: 0 RF: 0 carvedilol 12.5 mg tablet 1 tab PO DAILY RF: 0 clopidogrel 75 mg tablet 75 mg PO DAILY RF: 0 terazosin 1 mg capsule 1 mg PO DAILY RF: 0 citalopram 20 mg tablet 20 mg PO DAILY RF: 0 pantoprazole 40 mg tablet,delayed release (DR/EC) 1 tab PO DAILY RF: 0 buspirone 10 mg tablet 1 tab PO BID RF: 0 pravastatin 20 mg tablet 20 mg PO QPM RF: 0 Lantus Solostar U-100 Insulin 100 unit/mL (3 mL) insulin pen 30 units Sub-Q QPM RF: 0 ibuprofen 600 mg tablet 600 mg PO TID-QID PRN (Reason: pain) Qty: 20 RF: 0 cyclobenzaprine 10 mg tablet 10 mg PO TID PRN (Reason: muscle spasm) Qty: 14 RF: 0 oxycodone 5 mg tablet 5 mg PO Q4-6H PRN (Reason: pain) Qty: 14 RF: 0 trazodone 50 mg tablet 50 mg PO QPM RF: 0 Referrals: Reji Patterson MD [Primary Care Provider] -
[2019-07-08 14:11] LABS: Add Manual Diff / Slide Review NO; Basophils Absolute Auto 0 /uL (0-100); Basophils Percent Auto 0.3 % (0-2); Eosinophils Absolute Auto 100 /uL (0-450); Hematocrit 38.1 % (41-53); Hemoglobin 13.1 g/dL (13.5-17.5); Lymphocytes Absolute Auto 1200 /uL (1100-4500); Lymphocytes Percent Auto 14.3 % (25-40); Mean Corpuscular HGB Conc 34.3 % (30-36); Mean Corpuscular Hemoglobin 32.2 PG (26-34); Mean Corpuscular Volume 93.9 fL (80-100); Monocytes Absolute Auto 800 /uL (0-900); Monocytes Percent Auto 8.9 % (3-14); Neutrophils Absolute Auto 6500 /uL (1500-7000); Neutrophils Percent Auto 75.5 % (50-75); Platelet Count 209 X10^3/uL (150-400); Red Blood Cell Count 4.06 X10^6/uL (4.5-5.9); Red Cell Distribution Width 13.7 % (11.6-14.8); White Blood Cell Count 8.7 X10^3/uL (4.5-11.0)
[2019-07-08 14:18] LABS: Alanine Aminotransferase 17 IU/L (<50); Albumin 3.8 g/dL (3.5-5.0); Albumin Globulin Ratio 1.5 (1.0-2.8); Alkaline Phosphatase 110 U/L (38-126); Aspartate Aminotransferase 24 IU/L (17-59); BUN Creatinine Ratio 22.9 (6-22); Bilirubin Total 0.7 mg/dL (0.2-1.3); Blood Urea Nitrogen 16 mg/dL (9-20); Calcium 8.6 mg/dL (8.4-10.2); Carbon Dioxide 29 mmol/L (22-32); Chloride 102 mmol/L (98-107); Creatine Kinase 85 U/L (55-170); Estimated Glomerular Filt Rate > 60.0 mL/min (>60); Globulin 2.6 g/dL (1.7-4.1); Glucose 170 mg/dL (80-110); HEMOLYSIS < 15 (0-50); Potassium 3.8 mmol/L (3.4-5.1); Sodium 139 mmol/L (137-145); Total Protein 6.4 g/dL (6.3-8.2)
[2019-07-08 14:20] LABS: Lipase < 10 U/L (23-300)
[2019-07-08 14:30] LABS: Troponin I < 0.012 ng/mL (0.01-0.034)
[2019-07-08 14:40] VITALS: BP 137/75; PULSE 89; RESP 16; O2SAT 98
[2019-07-08 15:45] VITALS: BP 159/82; RESP 13
[2019-07-08 16:30] VITALS: BP 130/84; PULSE 97; RESP 19; O2SAT 95
[2019-07-08 17:16] VITALS: BP 127/76; PULSE 90; RESP 17; O2SAT 95
[2019-07-08 17:28] LABS: RBC Urine 5-10/HPF (0-5/HPF); WBC Urine 10-30/HPF (0-5/HPF)
[2019-07-08 17:29] LABS: Bacteria Urine Moderate (10-30); Culture Indicated Urine Specimen Cultured; Mucus Urine 1+ (Negative); Squamous Epithelial Cell Urine 1-5 /HPF (0-5/HPF); Transitional Epi Cells Urine 5-10/HPF (0-5/HPF)
== END 2019-07-08 17:40 | disposition home or self-care (01) ==
PROVIDERS: Emergency Provider Emergency Medicine; PCP Internal Medicine
DX: E11.649 Type 2 diabetes mellitus with hypoglycemia without coma (principal); Z79.4 Long term (current) use of insulin; R14.0 Abdominal distension (gaseous)
CPT/HCPCS: 36415; 74019; 80053; 81003; 81015; 82550; 82962; 83690; 84484; 85025; 87077; 87086; 87185; 87186; 93005; 99284; 99285

== ENCOUNTER 2019-12-28 09:55 | Emergency (ER) | payer MEDICARE, OTHER, SELFPAY ==
[2019-12-28 10:01] VITALS: BP 187/81; PULSE 68; RESP 20; TEMP 36.7; O2SAT 99
[2019-12-28 11:13] VITALS: PULSE 80
--- NOTE | 2019-12-28 11:28 | ED.LOWEXIN ---
HPI - Extremity Injury (Lower) General Chief Complaint: Extremity Injury, Lower Stated Complaint: both hips pain x7 days Time Seen by Provider: 12/28/19 10:59 Source: patient and family Mode of arrival: Family Vehicle History of Present Illness HPI Narrative: Patient is a 79-year-old male who presents with back pain and mild abdominal discomfort he says he slept on a bad bed about a week ago and it hurts from his neck to his knees. This morning he was unable to get out of bed without his 's assistance which was abnormal. He has been taking Percocet for pain which he says has not helped. He also has some very mild vague abdominal discomfort. He denies any nausea vomiting his last bowel movement was a few days ago. He is incontinent of urine he has no weakness in his lower extremities or hands. He is able to move his legs he has no decreased sensation. His hips also hurt as well. He denies any injury. He does walk with a walker and cane which she has been doing for number of months. His states that he has had progressive decline over the past few months as well. Related Data Home Medications Medication Instructions Recorded Confirmed Correctol 2 tab PO BEDTIME PRN #0 01/14/17 12/28/19 buspirone 1 tab PO BID PRN 03/07/18 12/28/19 carvedilol 1 tab PO BID 03/07/18 12/28/19 citalopram 20 mg PO DAILY 03/07/18 12/28/19 clopidogrel 75 mg PO DAILY 03/07/18 12/28/19 insulin glargine [Lantus Solostar 30 units SUB-Q QPM 03/07/18 12/28/19 U-100 Insulin] pravastatin 20 mg PO QPM 03/07/18 12/28/19 amlodipine 5 mg PO DAILY 12/28/19 12/28/19 losartan 50 mg PO DAILY 12/28/19 12/28/19 metformin 1,000 mg PO BIDAC 12/28/19 12/28/19 oxycodone-acetaminophen 0.5 - 1 tab PO BEDTIME PRN 12/28/19 12/28/19 tamsulosin 0.4 mg PO BID 12/28/19 12/28/19 trazodone 100 mg PO BEDTIME 12/28/19 12/28/19 trospium 20 mg PO BID 12/28/19 12/28/19 Previous Rx's Medication Instructions Recorded ibuprofen 600 mg PO TID-QID PRN #20 tab 03/07/18 Allergies Allergy/AdvReac Type Severity Reaction Status Date / Time Sulfa (Sulfonamide Allergy Mild CHILDHOOD Verified 12/28/19 10:09 Antibiotics) REACTION Review of Systems Review of Systems ROS Unobtainable: All systems reviewed & are unremarkable except as noted in HPI and below Constitutional Constitutional: Denies chills, Denies fever(s), Denies lethargy and Denies weakness Eyes Eyes: Denies change in vision, Denies eye discharge, Denies irritation and Denies loss of vision ENT Ears, Nose, Mouth, and Throat: Denies change in voice, Denies neck pain and Denies sore throat Cardiovascular Cardiovascular: Denies chest pain, Denies irregular heart rhythm, Denies lightheadedness, Denies palpitations, Denies dyspnea, Denies dyspnea on exertion and Denies orthopnea Respiratory Respiratory: Denies cough, Denies dyspnea, Denies dyspnea on exertion and Denies wheezing Gastrointestinal Gastrointestinal: Reports as per HPI and Reports abdominal pain Musculoskeletal Musculoskeletal: Denies neck pain and Denies numbness Integumentary/Breasts Skin/Breast: Denies pruritus, Denies erythema, Denies rash and Denies wounds Neurologic Neurologic: Denies localized weakness, Denies loss of vision, Denies numbness and Denies weakness Endocrine Endocrine: Denies palpitations Allergic/Immunologic Allergic/Immunologic: Denies wheezing Patient History Social History household members: spouse Smoking Status: Former smoker Smoking Status: Former smoker alcohol intake frequency: 0-2 drinks per day Substance Use Type: marijuana Exam Initial Vital Signs Initial Vital Signs: Vital Signs Temperature 98.1 F 12/28/19 10:01 Pulse Rate 68 12/28/19 10:01 Respiratory Rate 20 12/28/19 10:01 Blood Pressure 187/81 H 12/28/19 10:01 Pulse Oximetry 99 12/28/19 10:01 GENERAL: Alert hard of hearing elderly male HEENT: Head atraumatic,EOMI, pupils reactive, face symmetric, moist mucous membranes CARDIOVASCULAR: Regular rate and rhythm without murmurs, rubs or gallops. RESPIRATORY: Breath sounds equal bilaterally, no wheezes rales or rhonchi. ABDOMEN: Soft, nontender. Normoactive bowel sounds all 4 quadrants. No guarding or rebound. BACK: L-spine tenderness L4-L5 no deformity no step-off no erythema EXTREMITIES: Normal range of motion, no clubbing or edema. Neurovascularly intact NEUROLOGICAL: Alert and oriented x4.Normal gait and speech. Cranial nerves II through XII grossly intact. Sensation intact in lower extremities and saddle area. SKIN: Warm, dry, no laceration, no petechiae, no rashes or lesions. Course Orders Ordered: ED Orders 12/28/19 11:42 CT abdomen pelvis w con Stat 12/28/19 11:43 Complete Blood Count AUTO DIFF Stat Comprehensive Metabolic Panel Stat Lipase Stat Partial Thromboplastin Time Stat Prothrombin Time INR Stat 12/28/19 13:19 Consult to Physical Therapy Evaluate & Treat Discontinued Medications Sodium Chloride (Normal Saline 0.9%) 1,000 mls @ 150 mls/hr IV BOLUS ONE Stop: 12/28/19 17:51 Last Infusion: 12/28/19 14:56 Dose: 0 mls/hr Documented by: Admin: 12/28/19 11:58 Dose: 150 mls/hr Documented by: ANDREA Ketorolac Tromethamine (Toradol) 15 mg IV NOW ONE Stop: 12/28/19 11:59 Last Admin: 12/28/19 12:02 Dose: 15 mg Documented by: ANDREA Morphine Sulfate (Morphine) 4 mg IV NOW ONE Stop: 12/28/19 14:48 Last Admin: 12/28/19 14:56 Dose: 4 mg Documented by: ANDREA Vital Signs Vital signs: Vital Signs - 8 hr 12/28/19 10:01 12/28/19 11:13 12/28/19 12:06 Temperature 98.1 F Pulse Rate 68 80 Pulse Rate [Bilateral Radial] 80 Respiratory Rate 20 18 Blood Pressure 187/81 H Blood Pressure [Left Arm] 150/68 H Pulse Oximetry 99 98 12/28/19 13:00 12/28/19 14:00 12/28/19 15:00 Temperature Pulse Rate 72 70 68 Pulse Rate [Bilateral Radial] Respiratory Rate 16 14 15 Blood Pressure Blood Pressure [Left Arm] 140/78 132/70 140/72 Pulse Oximetry 98 99 99 MDM - Extremity Injury (Lower) Lab Data Attestation: I reviewed the patient's lab results. Result diagrams: 12/28/19 11:43 12/28/19 11:43 Labs: Lab Results 12/28/19 12/28/19 12/28/19 Range/Units 11:43 11:43 11:43 WBC 8.2 (4.5-11.0) X10^3/uL RBC 3.90 L (4.5-5.9) X10^6/uL Hgb 12.5 L (13.5-17.5) g/dL Hct 36.8 L (41-53) % MCV 94.3 (80-100) fL MCH 32.1 (26-34) PG MCHC 34.1 (30-36) % RDW 13.4 (11.6-14.8) % Plt Count 214 (150-400) X10^3/uL Neut % (Auto) 77.7 H (50-75) % Lymph % (Auto) 13.5 L (25-40) % Reagan % (Auto) 7.7 (3-14) % Eos % (Auto) 0.9 L (2-4) % Baso % (Auto) 0.2 (0-2) % Neut # (Auto) 6400 (6251-9791) /uL Lymph # (Auto) 1100 (0452-4637) /uL Reagan # (Auto) 600 (0-900) /uL Eos # (Auto) 100 (0-450) /uL Baso # (Auto) 0 (0-100) /uL PT 12.2 (10.1-12.7) SECONDS INR 1.1 (0.9-1.3) APTT 34 (26.4-36.2) SECONDS Sodium 136 L (137-145) mmol/L Potassium 3.8 (3.4-5.1) mmol/L Chloride 102 (98-107) mmol/L Carbon Dioxide 27 (22-32) mmol/L BUN 18 (9-20) mg/dL Creatinine 0.74 (0.66-1.25) mg/dL Estimated GFR > 60.0 (>60) mL/min BUN/Creatinine Ratio 24.3 H (6-22) Glucose 143 H (80-110) mg/dL Calcium 8.7 (8.4-10.2) mg/dL Total Bilirubin 0.6 (0.2-1.3) mg/dL AST 23 (17-59) IU/L ALT 15 (<50) IU/L Alkaline Phosphatase 103 (38-126) U/L Total Protein 6.9 (6.3-8.2) g/dL Albumin 3.7 (3.5-5.0) g/dL Globulin 3.2 (1.7-4.1) g/dL Albumin/Globulin Ratio 1.2 (1.0-2.8) Lipase < 10 L (23-300) U/L Imaging Data CT scan - abdomen/pelvis: Radiologist's Impression: PROCEDURE: CT ABDOMEN PELVIS W CON INDICATIONS: lumbar pain and abdominal pain TECHNIQUE: After the administration of oral and intravenous contrast, 5 mm thick sections acquired from the diaphragms to the symphysis. 5 mm thick coronal and sagittal reformats were performed. For radiation dose reduction, the following was used: automated exposure control, adjustment of mA and/or kV according to patient size. COMPARISON: [facility], CT, CT PEL WO CON, 07/10/2018, 15:45. [facility], CT, ABDOMEN/PELVIS WITH CONTRAST, 12/25/2015, 22:44. FINDINGS: Image quality: Diagnostic ABDOMEN: Lung bases: There is a small area of groundglass attenuation identified along the lateral margin of the left lower lobe that measures up to approximately 1.3 cm (image 9, series 2). Otherwise, the imaged lung bases are clear. Heart size is normal. Solid organs: The liver is within normal limits. No definite liver lesions are appreciated. The gallbladder is not enlarged or inflamed. No intrahepatic or extrahepatic biliary dilatation is identified. The pancreas and spleen are within normal limits. The left adrenal is unremarkable. There is a hypodense nodule evident involving the right adrenal gland and measures approximately 1.2 x 1.5 cm (image 23, series 2), which is unchanged since the prior study, given differences in imaging technique. Both kidneys are normal in size. There is no hydronephrosis. There is a small exophytic cyst evident involving the inferior margin of the right kidney. No perinephric edema likely a senescent. There is prominence/hypertrophy of the pararenal fat that extends into the region of the pelvis and displaces the bowel loops anteriorly. The Peritoneum and bowel: The stomach is unremarkable. The small bowel loops are nondilated. A moderate to large amount of residual stool is identified within the colon. The appendix is not definitely identified. No free fluid, loculated fluid collection or free air is appreciated. There continues to be in a calcified mass evident along the anterior lower abdominal wall to the right of midline below the level of the umbilicus with peripheral calcifications that largely is hypodense and noted to measure approximately 5.5 x 2.0 cm on the axial images (image 76, series 2), which is unchanged since the previous study when remeasured in a similar fashion. There is atrophy of the right rectus abdominis muscles. Nodes and vessels: No retroperitoneal or mesenteric adenopathy. Aorta and inferior vena cava are normal in caliber. Aortic and iliac artery atherosclerosis is present. Bones: No acute fracture or suspicious osseous lesion is appreciated. Prominent anterior disc osteophyte complexes are present at multiple levels at the thoracolumbar junction, compatible with diffuse idiopathic skeletal hyperostosis. Severe degenerative changes of the lumbar spine are present, similar to previous studies. Heterogeneous appearance of the L5 vertebral body is also similar to the previous exams and felt to be degenerative. PELVIS: Genitourinary: Wall thickening of the urinary bladder is present. The prostate gland is mildly enlarged and measures up to approximately 3.6 x 5.0 cm and contains multiple coarse calcifications. Miscellaneous: No inguinal hernias or adenopathy. No free fluid or loculated fluid collection is identified. Bones: No suspicious bony lesions. No acute pelvic fractures are identified. Mild to moderate degenerative changes of the pelvic joints are noted. IMPRESSION: 1. No acute process is appreciated within the abdomen or pelvis. 2. Possible constipation. No bowel obstruction. 3. Urinary bladder wall thickening may be exaggerated by incomplete distention. Please correlate clinically to exclude cystitis or chronic bladder outlet obstruction. 4. Indeterminate right adrenal nodule is unchanged. 5. Peripherally calcified structure along the anterior abdominal wall to the right of midline is unchanged and probably represents scarring. 6. Severe degenerative changes of the spine. Dictated by: Grupo Parker M.D. on 12/28/2019 at 11:46 Approved by: Grupo Parker M.D. on 12/28/2019 at 11:54 MDM Narrative Medical decision making narrative: The patient was evaluated by Physical therapy. He is able to get up and move around. Toradol has helped some. He is followed closely with his PCP. No cause for any worsening pain. Blood work overall reassuring. Discharge Plan Departure Patient Disposition: Home Clinical Impression: Back pain Qualifiers: Back pain location: low back pain Chronicity: chronic Back pain laterality: midline Sciatica presence: without sciatica Qualified Code(s): M54.5 - Low back pain Discharge Date/Time: 12/28/19 15:22 Activity Restrictions/Additional Instructions: *You have been diagnosed with back pain *What to do: Recommend home health care and physical therapy. Please talk with her primary care provider in regards to further pain management *Continue to take medications as directed *Follow up with your primary care provider in 2-3 days *Return to ER if you should have increasing pain inability to walk increased falls or any new, worsening or concerning symptoms Prescriptions: No Action Correctol 5 MG tablet 2 tab PO BEDTIME PRN (Reason: Constipation) Qty: 0 RF: 0 carvedilol 12.5 mg tablet 1 tab PO BID RF: 0 clopidogrel 75 mg tablet 75 mg PO DAILY RF: 0 citalopram 20 mg tablet 20 mg PO DAILY RF: 0 buspirone 10 mg tablet 1 tab PO BID PRN (Reason: Anxiety) RF: 0 pravastatin 20 mg tablet 20 mg PO QPM RF: 0 Lantus Solostar U-100 Insulin 100 unit/mL (3 mL) insulin pen 30 units Sub-Q QPM RF: 0 ibuprofen 600 mg tablet 600 mg PO TID-QID PRN (Reason: pain) Qty: 20 RF: 0 amlodipine 5 mg tablet 5 mg PO DAILY RF: 0 metformin 1,000 mg tablet 1,000 mg PO BIDAC RF: 0 losartan 50 mg tablet 50 mg PO DAILY RF: 0 oxycodone-acetaminophen 10-325 mg tablet 0.5 - 1 tab PO BEDTIME PRN (Reason: Pain (Scale Score 7-10)) RF: 0 tamsulosin 0.4 mg capsule 0.4 mg PO BID RF: 0 trazodone 100 mg tablet 100 mg PO BEDTIME RF: 0 trospium 20 mg tablet 20 mg PO BID RF: 0 Referrals: Reji Patterson MD [Primary Care Provider] -
--- NOTE | 2019-12-28 11:36 | PC.NURSE ---
States that pain has been ongoing x 1 year because of my mattress. Pain w/ movement but no point tenderness noted upon exam when pt is distracted. Moving all extremities equally but weak overall. Skin turger is loose w/ dry skin. states pt has worsening dementia and she is sole caregiver. Pt is confused to history and time at baseline and hard of hearing but reads lips well. To get oob took two assist to stand and change brief.
--- NOTE | 2019-12-28 11:42 | DI.CT.S_ITS ---
PROCEDURE: CT ABDOMEN PELVIS W CON INDICATIONS: lumbar pain and abdominal pain TECHNIQUE: After the administration of oral and intravenous contrast, 5 mm thick sections acquired from the diaphragms to the symphysis. 5 mm thick coronal and sagittal reformats were performed. For radiation dose reduction, the following was used: automated exposure control, adjustment of mA and/or kV according to patient size. COMPARISON: [facility], CT, CT PEL WO CON, 07/10/2018, 15:45. [facility], CT, ABDOMEN/PELVIS WITH CONTRAST, 12/25/2015, 22:44. FINDINGS: Image quality: Diagnostic ABDOMEN: Lung bases: There is a small area of groundglass attenuation identified along the lateral margin of the left lower lobe that measures up to approximately 1.3 cm (image 9, series 2). Otherwise, the imaged lung bases are clear. Heart size is normal. Solid organs: The liver is within normal limits. No definite liver lesions are appreciated. The gallbladder is not enlarged or inflamed. No intrahepatic or extrahepatic biliary dilatation is identified. The pancreas and spleen are within normal limits. The left adrenal is unremarkable. There is a hypodense nodule evident involving the right adrenal gland and measures approximately 1.2 x 1.5 cm (image 23, series 2), which is unchanged since the prior study, given differences in imaging technique. Both kidneys are normal in size. There is no hydronephrosis. There is a small exophytic cyst evident involving the inferior margin of the right kidney. No perinephric edema likely a senescent. There is prominence/hypertrophy of the pararenal fat that extends into the region of the pelvis and displaces the bowel loops anteriorly. The Peritoneum and bowel: The stomach is unremarkable. The small bowel loops are nondilated. A moderate to large amount of residual stool is identified within the colon. The appendix is not definitely identified. No free fluid, loculated fluid collection or free air is appreciated. There continues to be in a calcified mass evident along the anterior lower abdominal wall to the right of midline below the level of the umbilicus with peripheral calcifications that largely is hypodense and noted to measure approximately 5.5 x 2.0 cm on the axial images (image 76, series 2), which is unchanged since the previous study when remeasured in a similar fashion. There is atrophy of the right rectus abdominis muscles. Nodes and vessels: No retroperitoneal or mesenteric adenopathy. Aorta and inferior vena cava are normal in caliber. Aortic and iliac artery atherosclerosis is present. Bones: No acute fracture or suspicious osseous lesion is appreciated. Prominent anterior disc osteophyte complexes are present at multiple levels at the thoracolumbar junction, compatible with diffuse idiopathic skeletal hyperostosis. Severe degenerative changes of the lumbar spine are present, similar to previous studies. Heterogeneous appearance of the L5 vertebral body is also similar to the previous exams and felt to be degenerative. PELVIS: Genitourinary: Wall thickening of the urinary bladder is present. The prostate gland is mildly enlarged and measures up to approximately 3.6 x 5.0 cm and contains multiple coarse calcifications. Miscellaneous: No inguinal hernias or adenopathy. No free fluid or loculated fluid collection is identified. Bones: No suspicious bony lesions. No acute pelvic fractures are identified. Mild to moderate degenerative changes of the pelvic joints are noted. IMPRESSION: 1. No acute process is appreciated within the abdomen or pelvis. 2. Possible constipation. No bowel obstruction. 3. Urinary bladder wall thickening may be exaggerated by incomplete distention. Please correlate clinically to exclude cystitis or chronic bladder outlet obstruction. 4. Indeterminate right adrenal nodule is unchanged. 5. Peripherally calcified structure along the anterior abdominal wall to the right of midline is unchanged and probably represents scarring. 6. Severe degenerative changes of the spine. Dictated by: Grupo Parker M.D. on 12/28/2019 at 11:46 Approved by: Grupo Parker M.D. on 12/28/2019 at 11:54
[2019-12-28] MEDS: SODIUM CHLORIDE 0.9% 1,000 ML 150 ML IV (11:58)
[2019-12-28] MEDS: KETOROLAC 60 MG/2 ML VIAL 15 MG IV (12:02)
[2019-12-28 12:04] LABS: Add Manual Diff / Slide Review NO; Basophils Absolute Auto 0 /uL (0-100); Basophils Percent Auto 0.2 % (0-2); Eosinophils Absolute Auto 100 /uL (0-450); Eosinophils Percent Auto 0.9 % (2-4); Hematocrit 36.8 % (41-53); Hemoglobin 12.5 g/dL (13.5-17.5); Lymphocytes Absolute Auto 1100 /uL (1100-4500); Lymphocytes Percent Auto 13.5 % (25-40); Mean Corpuscular HGB Conc 34.1 % (30-36); Mean Corpuscular Hemoglobin 32.1 PG (26-34); Mean Corpuscular Volume 94.3 fL (80-100); Monocytes Absolute Auto 600 /uL (0-900); Monocytes Percent Auto 7.7 % (3-14); Neutrophils Absolute Auto 6400 /uL (1500-7000); Neutrophils Percent Auto 77.7 % (50-75); Platelet Count 214 X10^3/uL (150-400); Red Cell Distribution Width 13.4 % (11.6-14.8); White Blood Cell Count 8.2 X10^3/uL (4.5-11.0)
[2019-12-28 12:06] VITALS: BP 150/68; PULSE 80; RESP 18; O2SAT 98
[2019-12-28 12:10] LABS: INR 1.1 (0.9-1.3); Prothrombin Time 12.2 SECONDS (10.1-12.7)
[2019-12-28 12:12] LABS: PTT Partial Thromboplastin Tim 34 SECONDS (26.4-36.2)
[2019-12-28 12:14] LABS: Alanine Aminotransferase 15 IU/L (<50); Albumin 3.7 g/dL (3.5-5.0); Albumin Globulin Ratio 1.2 (1.0-2.8); Alkaline Phosphatase 103 U/L (38-126); Aspartate Aminotransferase 23 IU/L (17-59); BUN Creatinine Ratio 24.3 (6-22); Bilirubin Total 0.6 mg/dL (0.2-1.3); Blood Urea Nitrogen 18 mg/dL (9-20); Calcium 8.7 mg/dL (8.4-10.2); Carbon Dioxide 27 mmol/L (22-32); Chloride 102 mmol/L (98-107); Estimated Glomerular Filt Rate > 60.0 mL/min (>60); Globulin 3.2 g/dL (1.7-4.1); Glucose 143 mg/dL (80-110); HEMOLYSIS < 15 (0-50); Potassium 3.8 mmol/L (3.4-5.1); Sodium 136 mmol/L (137-145); Total Protein 6.9 g/dL (6.3-8.2)
[2019-12-28 12:15] LABS: Lipase < 10 U/L (23-300)
[2019-12-28 13:00] VITALS: BP 140/78; PULSE 72; RESP 16; O2SAT 98
--- NOTE | 2019-12-28 13:45 | PT.IIE ---
Physical Therapy Inpatient Evaluation/Re-Eval M1 PT/OT-IP Prior Functional Status Start: 12/28/19 15:39 Freq: Status: Active Protocol: Document 12/28/19 13:45 AB (Rec: 12/28/19 16:24 AB [id number]) Medical Review Prior Functional Status Medical History Reviewed Yes Communication able to make needs known Mobility and Gait spouse stated that spouse has been needing more assistance for the last few months but able to get in and out of bed by himself, ambulate using a FWW (started using ~ 3 month ago). spouse stated that assistance is depending on what the pt feels and pt stated that assistance level is depending on his pain and weakness. Social History Household Members spouse Living Arrangements House Number of Floors (Floors) 3 or More Floors Number of Stairs To Enter/Railing? 5 steps to enter with bilateral rails to enter 4 steps B rails to living room from first level and has to go down 4 steps with bilateral rails to bedroom Home Environment Standard Height Toilet,Tub/ Shower Home Equipment Shower Seat with Backrest,Grab Bars Near Toilet,Grab Bars In Shower Additional Social History Comment information obtained from spouse as pt is agitated and stated that he is NIK[place]SKI and stated that he does not understand what PT was saying; Spouse was willing to answer and inform pt was PT was stating. spouse stated that spouse does not take a shower but takes a bath M2 PT-IP Current Condition Start: 12/28/19 15:39 Freq: Status: Active Protocol: Document 12/28/19 13:45 AB (Rec: 12/28/19 16:24 AB [id number]) Physical Therapy Current Condition Current Condition Evaluation Date 12/28/19 Treatment Diagnosis hip pain; difficulty in walking Onset Date 12/28/19 M3 PT-IP Subjective Start: 12/28/19 15:39 Freq: Status: Active Protocol: Document 12/28/19 13:45 AB (Rec: 12/28/19 16:24 AB [id number]) Subjective Physical Therapy Visit Type Type Initial Evaluation Visit Start Time 13:45 Visit Stop Time 14:19 Total Visit Minutes 34 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 0 Therapy Pain Assessment Pain When Pain Assessed At Rest Pain Present Pain Present Pain Reported Location Bilateral Hip Intensity 8 Scale Used Numeric (0 - 10) Pain Management Techniques Re-positioning M4 PT-IP Mobility and Gait Start: 12/28/19 15:39 Freq: Status: Active Protocol: Document 12/28/19 13:45 AB (Rec: 12/28/19 16:24 AB [id number]) PT-Bed Mobility Assessment Sit to Supine Sit to Supine Minimal Assistance PT-Transfer Assessment Sit to and From Stand Sit to and from Stand Minimal Assistance,1 Person Assistance,Use of Upper Extremities Equipment Transfer Assistive Device Gait Belt,Front Wheeled Walker Orthotic/Prosthetic Devices or Brace: No Transfers Transfer Destination Chair Transfer Technique ambulated using FWW Transfer Ability Level of Assist Standby Assistance Comments Mobility Comments pt standing using FWW with nurse assisting while using urinal. pt finished using the urinal and PT talked to pt. spouse in room. pt agitated and directs his own care. stated that he needs to use the urinal again. assisted pt with donning nonskid socks. pt completed sit to stand CGA. pt very particular about his care and does not want assistance but demonstrating unsteadiness during standing. pt agreed to ambulate after using the urinal and completed SBA using FWW. asked spouse regarding pt's PLOF and home set up as pt does not want to answer and talk to PT. asked pt to demonstrate bed mobility and agreed. attempted sit to stand from chair x 3 reps and unable to complete taks but refusing PT to assist him. pt is unsteady and refusing assistance from PT but will ask his spouse to assist. spouse was able to assist pt to bed and pt completes sit to supine with spouse's assistance. informed spouse regarding homehealth PT and agreed. also informed about safety and spouse understood. Pt stated that he is more concerned about his pain. informed MD regarding pt's mobility and concerns. Gait Assessment Gait Gait Assistance Required: Standby Assistance Distance (Feet) 20 Able to Maintain Weight Bearing Status Yes During Gait Assistive Devices Assistive Device Gait Belt,Front Wheeled Walker Orthotic/Prosthetic Devices or Brace: No Gait Deviations General Gait Pattern Antalgic,Decreased Stride Length,Decreased Feet Clearance,Step-to Gait Factors Limiting Gait Function Factors Limiting Gait Function Decreased Activity Tolerance, Decreased Strength,Difficulty Following Directions,Limited Range of Motion,Pain,Poor Balance,Poor Safety Awareness Comments Gait Comments pls refer to mobility section for details PT-Balance Assessment Sitting Balance and Reactions Static Sitting Balance Ability Good Dynamic Sitting Balance Ability Good Standing Balance and Reactions Static Standing Balance Ability Fair Dynamic Standing Balance Ability Fair Device Used FWW M5 PT-IP Objective Assessments Start: 12/28/19 15:39 Freq: Status: Active Protocol: Document 12/28/19 13:45 AB (Rec: 12/28/19 16:24 AB [id number]) Orientation Orientation/Cognition Level of Alertness Alert Orientation Name Safety Awareness Decreased Safety Awareness Gross Range of Motion Lower Extremity ROM Impairments presents with bilateral genu varum with increase R knee flexion during late stance phase of gait presenting with antalgic gait Strength Lower Extremity Strength Assessment Bilaterally Impaired Hip 3+/5 Knee 3+/5 M6 PT-IP Treatment Start: 12/28/19 15:39 Freq: Status: Active Protocol: Document 12/28/19 13:45 AB (Rec: 12/28/19 16:26 AB [id number]) Physical Therapy Treatment Education Education Provided Safety M7 PT-IP Assessment and Plan Start: 12/28/19 15:39 Freq: Status: Active Protocol: Document 12/28/19 13:45 AB (Rec: 12/28/19 16:24 AB [id number]) PT Summary Assessment and Plan Potential Rehabilitation Potential Fair Status of Condition at Evaluation Stable Summary Impairments Pain,ROM,Strength,Balance,Tone ,Cognition,Bed Mobility, Transfers,Gait,Activity Tolerance Assessment Summary Received PT eval to determine safe d/c plan for pt. PT eval completed and spouse is able to assist pt as needed. pt directs his own care and is unsteady with ambulation but refuse assistance provided by PT but will direct his spouse to assist him. spouse stated that they have to go home since they do not have insurance coverage to go to SNF. Pt was able to mobilize and ambulate using FWW spouse' s assistance and may go home but will require homehealth PT . informed nurse and MD. Goals Bed Mobility Goal Standby Assistance Transfer Goal Standby Assistance,Front Wheeled Walker Gait Goal Standby Assistance,Front Wheel Walker Gait Distance 50 Other Goals up/down 5 steps B rail SBA Days to Meet Goals 3 Frequency of Treatment Frequency Of Treatment Once a Day Treatment Plan Physical Therapy Treatment Plan Bed Mobility Training,Transfer Training,Gait Training, Therapeutic Exercise,Balance Retraining,Discharge Planning, Hot or Cold Pack,Neuromuscular Re-ed,Coordination Retraining Recommendations To Nursing Amount of Assist Needed 1 Person Assist Discharge Recommendations PT Discharge Recommendations Home with Assistance,Home Health Transportation Needs at Discharge Private Vehicle
[2019-12-28 14:00] VITALS: BP 132/70; PULSE 70; RESP 14; O2SAT 99
[2019-12-28] MEDS: MORPHINE 4 MG/ML INJ IV (14:56)
[2019-12-28 15:00] VITALS: BP 140/72; PULSE 68; RESP 15; O2SAT 99
== END 2019-12-28 15:22 | disposition home or self-care (01) ==
PROVIDERS: Emergency Provider Emergency Medicine; PCP Internal Medicine
DX: M54.5 Low back pain (principal); R10.9 Unspecified abdominal pain; M25.552 Pain in left hip; M25.551 Pain in right hip
CPT/HCPCS: 36415; 74177; 80053; 83690; 85025; 85610; 85730; 96361; 96374; 96375; 97161; 99284; J1885; J2270; Q9967

== ENCOUNTER 2020-06-12 20:12 | Emergency (ER) | payer MEDICARE, OTHER, SELFPAY ==
[2020-06-12] VITALS (7 sets, daily range): BP systolic 135–168; BP diastolic 72–80; PULSE 63–71; RESP 18–24; TEMP 36.2; O2SAT 98–99
--- NOTE | 2020-06-12 20:19 | ED_ITS ---
HPI - Altered Mental Status General Chief Complaint: Altered Mental Status Stated Complaint: Altered LOC Time Seen by Provider: 06/12/20 20:19 Source: patient, family and EMS Mode of arrival: EMS History of Present Illness HPI narrative: 80-year-old gentleman with multiple medical problems including dementia, diabetes, hypertension, hyperlipidemia, coronary artery disease on Plavix and recently unable to refill glucose monitor strips so has not been monitoring his blood sugars. His called 911 earlier this afternoon with concerns that he with significantly altered she noted that he was having difficulty walking, he could not find a way to his own bedroom, he had slurred speech and having more difficulty require recalling things. Patient is significantly improved by the time he arrives in the emergency room and attributes all of his symptoms to ?being really fucked up after I smoked a joint?. His son notes that he does smoke regularly and his behavior was not simply being intoxicated with marijuana. His notes that he has been ?off over the last 3 days? with increasing anger confusion and belligerence. Both the and the son note that over the last number of months he has been worsening with all of these symptoms. There are no reports of fever, chest pain, dyspnea, abdominal pain. He is incontinent of the urine and his was concerned that his groin was slightly red. Patient notes that he has a mild chronic cough ?from all the weed? but feels he is back to his baseline. Patient denies alcohol and the confirms there is no alcohol available in the home. The notes that she has been trying to get him in to see his primary care physician Dr. Patterson but between trying to schedule an appointment and then arguing with him about actually getting in the car and keeping an appointment she is done unable to get him in for additional evaluation. Medics note that his sugar was slightly elevated at 336 today. There were no focal abnormalities to suggest acute stroke Related Data Home Medications Medication Instructions Recorded Confirmed Correctol 2 tab PO BEDTIME PRN #0 01/14/17 12/28/19 buspirone 1 tab PO BID PRN 03/07/18 12/28/19 carvedilol 1 tab PO BID 03/07/18 12/28/19 citalopram 20 mg PO DAILY 03/07/18 12/28/19 clopidogrel 75 mg PO DAILY 03/07/18 12/28/19 insulin glargine [Lantus Solostar 30 units SUB-Q QPM 03/07/18 12/28/19 U-100 Insulin] pravastatin 20 mg PO QPM 03/07/18 12/28/19 amlodipine 5 mg PO DAILY 12/28/19 12/28/19 losartan 50 mg PO DAILY 12/28/19 12/28/19 metformin 1,000 mg PO BIDAC 12/28/19 12/28/19 oxycodone-acetaminophen 0.5 - 1 tab PO BEDTIME PRN 12/28/19 12/28/19 tamsulosin 0.4 mg PO BID 12/28/19 12/28/19 trazodone 100 mg PO BEDTIME 12/28/19 12/28/19 trospium 20 mg PO BID 12/28/19 12/28/19 Previous Rx's Medication Instructions Recorded ibuprofen 600 mg PO TID-QID PRN #20 tab 03/07/18 Allergies Allergy/AdvReac Type Severity Reaction Status Date / Time Sulfa (Sulfonamide Allergy Mild CHILDHOOD Verified 12/28/19 10:09 Antibiotics) REACTION Review of Systems Review of Systems Narrative: Remainder of review of systems including constitutional, ENT, cardiovascular, respiratory, GI, , musculoskeletal, skin, neurologic and psychiatric systems reviewed and are unremarkable except as noted in HPI. Patient History Medical History Atrial fibrillation Dementia Diabetes Hyperlipidemia Hypertension Urinary incontinence Social History household members: spouse Smoking Status: Former smoker Smoking Status: Former smoker alcohol intake frequency: 0-2 drinks per day Substance Use Type: marijuana Exam Narrative Exam Narrative: General: Cantankerous gentleman in no acute distress. Cooperative with fluent speech and inconsistent recollection over events of the afternoon HEENT: Moist mucous membranes, normal sclera with reactive pupils, Neck: No JVD, supple Respiratory: Lungs are clear to auscultation, minor scattered wheezing, no rales no rhonchi. Full and symmetrical air movement Cardiac: Irregular rhythm, no murmurs no bruits Abdomen: Soft nontender good bowel tones, no flank pain Skin: Warm and dry, no rashes Perineum: Groin is moist from urinary incontinence but no significant erythema or skin breakdown Neurologic: Grossly neurologically intact with no obvious asymmetries, short- term memory loss Extremities: Cat scratch with mild erythema on the right side that does appear to be healing, well perfused Psych: Cooperative, little insight, fluent nonpressured speech, no obvious hallucinations Initial Vital Signs Initial Vital Signs: Vital Signs Temperature 97.2 F L 06/12/20 20:11 Pulse Rate 69 06/12/20 20:11 Respiratory Rate 20 06/12/20 20:11 Blood Pressure 155/74 H 06/12/20 20:11 Pulse Oximetry 99 06/12/20 20:11 Course Orders Ordered: ED Orders 06/12/20 20:31 CT head/brain wo con Stat Urinalysis and Microscopic Stat 06/12/20 20:36 Complete Blood Count AUTO DIFF Stat Comprehensive Metabolic Panel Stat Magnesium Stat Procalcitonin Stat Troponin I Stat Magnesium Sulfate (Magnesium Sulfate) 2 gm in 50 mls @ 25 mls/hr IV NOW ONE Stop: 06/12/20 23:07 Last Infusion: 06/12/20 21:29 Dose: 25 mls/hr Documented by: MIRNA Cosigned by: ILIR Infusion: 06/12/20 21:29 Dose: 75 mls/hr Documented by: MIRNA Cosigned by: FARTUN Admin: 06/12/20 21:19 Dose: 25 mls/hr Documented by: MIRNA Cosigned by: FARTUN Vital Signs Vital signs: Vital Signs - 8 hr 06/12/20 20:11 06/12/20 20:13 06/12/20 20:30 Temperature 97.2 F L Pulse Rate 69 67 63 Respiratory Rate 20 18 21 Blood Pressure 155/74 H Pulse Oximetry 99 99 99 06/12/20 20:54 06/12/20 21:00 06/12/20 21:30 Temperature Pulse Rate 66 64 69 Respiratory Rate 21 24 19 Blood Pressure 168/80 H 141/72 H 158/77 H Pulse Oximetry 99 99 99 MDM - Altered Mental Status Medical Records Attestation: I reviewed the patient's medical records. Lab Data Attestation: I reviewed the patient's lab results. Lab results narrative: New anemia compared to 12/28/2019 12.5/36.8 low calcium corrects with low albumin mild hypomag Result diagrams: 06/12/20 20:36 06/12/20 20:36 Labs: Lab Results 06/12/20 06/12/20 06/12/20 Range/Units 20:36 20:36 20:36 WBC 7.1 (4.5-11.0) X10^3/uL RBC 3.27 L (4.5-5.9) X10^6/uL Hgb 10.5 L (13.5-17.5) g/dL Hct 30.6 L (41-53) % MCV 93.6 (80-100) fL MCH 32.0 (26-34) PG MCHC 34.2 (30-36) % RDW 13.7 (11.6-14.8) % Plt Count 187 (150-400) X10^3/uL Neut % (Auto) 65.4 (50-75) % Lymph % (Auto) 21.6 L (25-40) % Redwood % (Auto) 9.4 (3-14) % Eos % (Auto) 2.9 (2-4) % Baso % (Auto) 0.7 (0-2) % Neut # (Auto) 4600 (3286-4472) /uL Lymph # (Auto) 1500 (0905-0495) /uL Redwood # (Auto) 700 (0-900) /uL Eos # (Auto) 200 (0-450) /uL Baso # (Auto) 100 (0-100) /uL Sodium 135 L (137-145) mmol/L Potassium 3.4 (3.4-5.1) mmol/L Chloride 104 (98-107) mmol/L Carbon Dioxide 27 (22-32) mmol/L BUN 15 (9-20) mg/dL Creatinine 0.78 (0.66-1.25) mg/dL Estimated GFR > 60.0 (>60) mL/min BUN/Creatinine Ratio 19.2 (6-22) Glucose 305 H (80-110) mg/dL Calcium 7.9 L (8.4-10.2) mg/dL Magnesium 1.3 L (1.6-2.3) mg/dL Total Bilirubin 0.4 (0.2-1.3) mg/dL AST 14 L (17-59) IU/L ALT 11 (<50) IU/L Alkaline Phosphatase 123 (38-126) U/L Troponin I 0.014 (0.01-0.034) ng/mL Total Protein 5.7 L (6.3-8.2) g/dL Albumin 3.0 L (3.5-5.0) g/dL Globulin 2.7 (1.7-4.1) g/dL Albumin/Globulin Ratio 1.1 (1.0-2.8) Procalcitonin < 0.05 (<0.5) ng/mL Imaging Data CT scan - head: Radiologist's Impression: No acute intracranial abnormality 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 With both and son confirming that his behavior seem to be beyond just acute marijuana intoxication a CT scan and blood work are initiated. Will confirm that there are no obvious medical abnormalities that need to be treated. Suspect that this is progressive dementia with sundowning. Workup is unremarkable. No evidence of infection, acute stroke, or acute cardiac event. This may be simply related to marijuana intoxication however he continued to Suspect that it is related to progressive dementia. He does note that he has not been taking his melatonin recently and sundowning can be associated with circadian rhythm disturbances. Did discuss the new relative anemia and recommended the follow-up with his primary care physician. There is no evidence of acute bleeding at this time. He is safe for home discharge Discharge Plan Departure Patient Disposition: Home Clinical Impression: Sundowning, Hypomagnesemia Anemia Qualifiers: Anemia type: unspecified type Qualified Code(s): D64.9 - Anemia, unspecified Instructions: DI for Alzheimer Disease Activity Restrictions/Additional Instructions: Thank you for coming in today With the acute changes noticed this afternoon, the weakness and slurred speech, a medical workup including CT scan of the head was done. There were no acute findings including evidence of stroke or infection. Blood work was unremarkable and did not suggest acute heart events or bladder infection. His magnesium was slightly low and this has been replaced. He was noted to be more anemic than comparison blood work in December. Protein levels were also low suggesting that he may not be eating as well as he should be. This anemia needs to be addressed by his primary care physician I suspect that the progressive symptoms that she noticed over the last month with the increasing behavioral changes and anger as well as the episodes you notice tonight are related to his dementia. As memory issues continue to worsen people can sometimes have episodes of behavioral disturbances that commonly peak in the late afternoon or evening. This is a phenomenon often referred to as ?sundowning?. Sundowning effects up to 2/3 of patients with dementia and is often related to disturbed circadian rhythms or sleep cycles. Again, he needs to be seen by Dr. Patterson for further evaluation and suggestions in helping manage these behavioral changes At this time, with no acute issues found in the emergency department. It is safe to go home. Please schedule appointment with her primary care physician to review all of the medications you are currently taking, your current diabetic management as well as the memory and behavioral issues and the new anemia. If you are finding new or changing symptoms, please feel free to return to the emergency department Prescriptions: No Action Correctol 5 MG tablet 2 tab PO BEDTIME PRN (Reason: Constipation) Qty: 0 RF: 0 carvedilol 12.5 mg tablet 1 tab PO BID RF: 0 clopidogrel 75 mg tablet 75 mg PO DAILY RF: 0 citalopram 20 mg tablet 20 mg PO DAILY RF: 0 buspirone 10 mg tablet 1 tab PO BID PRN (Reason: Anxiety) RF: 0 pravastatin 20 mg tablet 20 mg PO QPM RF: 0 Lantus Solostar U-100 Insulin 100 unit/mL (3 mL) insulin pen 30 units Sub-Q QPM RF: 0 ibuprofen 600 mg tablet 600 mg PO TID-QID PRN (Reason: pain) Qty: 20 RF: 0 amlodipine 5 mg tablet 5 mg PO DAILY RF: 0 metformin 1,000 mg tablet 1,000 mg PO BIDAC RF: 0 losartan 50 mg tablet 50 mg PO DAILY RF: 0 oxycodone-acetaminophen 10-325 mg tablet 0.5 - 1 tab PO BEDTIME PRN (Reason: Pain (Scale Score 7-10)) RF: 0 tamsulosin 0.4 mg capsule 0.4 mg PO BID RF: 0 trazodone 100 mg tablet 100 mg PO BEDTIME RF: 0 trospium 20 mg tablet 20 mg PO BID RF: 0 Referrals: Reji Patterson MD [Primary Care Provider] -
--- NOTE | 2020-06-12 20:31 | DI.CT.S_ITS ---
PROCEDURE: CT HEAD/BRAIN WO CON INDICATIONS: altered mental status TECHNIQUE: Noncontrast 4.5 mm thick angled axial sections acquired from the foramen magnum to the vertex, with coronal and sagittal reformats. For radiation dose reduction, the following was used: automated exposure control, adjustment of mA and/or kV according to patient size. COMPARISON: [facility], CT, HEAD WITHOUT CONTRAST, 12/25/2015, 20:48. FINDINGS: Image quality: Excellent. CSF spaces: Basal cisterns are patent. No extra-axial fluid collections. Ventricles are unchanged in size and shape. Prominent posterior horn of the left lateral ventricle. Brain: No midline shift. No intracranial masses or hemorrhage. No area of hypodensity in a large vascular distribution to suggest acute infarction. Punctate hypodensity in the right thalamus which could represent prior lacunar infarct. Periventricular hypodensity consistent with chronic microvascular ischemic change. Age-related parenchymal loss. Skull and face: Calvarium and visualized facial bones are intact, without suspicious lesions. Sinuses: Visualized sinuses and mastoids are clear. IMPRESSION: No acute intracranial abnormality. 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 Stable prominent ventricles. Chronic microvascular ischemic disease. Dictated by: Rigo Nj M.D. on 06/12/2020 at 21:17 Approved by: Rigo Nj M.D. on 06/12/2020 at 21:21
[2020-06-12 20:44] LABS: Add Manual Diff / Slide Review NO; Basophils Absolute Auto 100 /uL (0-100); Basophils Percent Auto 0.7 % (0-2); Eosinophils Absolute Auto 200 /uL (0-450); Eosinophils Percent Auto 2.9 % (2-4); Hematocrit 30.6 % (41-53); Hemoglobin 10.5 g/dL (13.5-17.5); Lymphocytes Absolute Auto 1500 /uL (1100-4500); Lymphocytes Percent Auto 21.6 % (25-40); Mean Corpuscular HGB Conc 34.2 % (30-36); Mean Corpuscular Volume 93.6 fL (80-100); Monocytes Absolute Auto 700 /uL (0-900); Monocytes Percent Auto 9.4 % (3-14); Neutrophils Absolute Auto 4600 /uL (1500-7000); Neutrophils Percent Auto 65.4 % (50-75); Platelet Count 187 X10^3/uL (150-400); Red Blood Cell Count 3.27 X10^6/uL (4.5-5.9); Red Cell Distribution Width 13.7 % (11.6-14.8); White Blood Cell Count 7.1 X10^3/uL (4.5-11.0)
[2020-06-12 21:00] LABS: Alanine Aminotransferase 11 IU/L (<50); Albumin Globulin Ratio 1.1 (1.0-2.8); Alkaline Phosphatase 123 U/L (38-126); Aspartate Aminotransferase 14 IU/L (17-59); BUN Creatinine Ratio 19.2 (6-22); Bilirubin Total 0.4 mg/dL (0.2-1.3); Blood Urea Nitrogen 15 mg/dL (9-20); Calcium 7.9 mg/dL (8.4-10.2); Carbon Dioxide 27 mmol/L (22-32); Chloride 104 mmol/L (98-107); Estimated Glomerular Filt Rate > 60.0 mL/min (>60); Globulin 2.7 g/dL (1.7-4.1); Glucose 305 mg/dL (80-110); HEMOLYSIS < 15 (0-50); Magnesium 1.3 mg/dL (1.6-2.3); Potassium 3.4 mmol/L (3.4-5.1); Sodium 135 mmol/L (137-145); Total Protein 5.7 g/dL (6.3-8.2)
[2020-06-12 21:11] LABS: Troponin I 0.014 ng/mL (0.01-0.034)
[2020-06-12 21:17] LABS: Procalcitonin < 0.05 ng/mL (<0.5)
[2020-06-12] MEDS: MAGNESIUM SULFATE 2 GM/50 ML PIGGYBACK IV (21:19)
== END 2020-06-12 22:51 | disposition home or self-care (01) ==
PROVIDERS: Emergency Provider Emergency Medicine; PCP Internal Medicine
DX: R41.82 Altered mental status, unspecified (principal); E83.42 Hypomagnesemia; F05 Delirium due to known physiological condition; D64.9 Anemia, unspecified; F12.929 Cannabis use, unspecified with intoxication, unspecified; F03.90 Unspecified dementia, unspecified severity, without behavioral disturbance, psychotic disturbance, mood disturbance, and anxiety; E11.9 Type 2 diabetes mellitus without complications; I10 Essential (primary) hypertension; E78.5 Hyperlipidemia, unspecified
CPT/HCPCS: 70450; 80053; 83735; 84145; 84484; 85025; 96365; 99283; 99284

== ENCOUNTER 2020-07-29 17:22 | Inpatient (IN) | payer MEDICARE, OTHER, SELFPAY ==
[2020-07-29] VITALS (10 sets, daily range): BP systolic 141–157; BP diastolic 80–98; PULSE 81–117; RESP 15–22; TEMP 36.2–36.5; O2SAT 94–99; BMI 28.8
[2020-07-29 17:58] LABS: Amorphous Sediment Urine 1+; Bacteria Urine Many (>30); Culture Indicated Urine Specimen Cultured; Mucus Urine 1+ (Negative); RBC Urine 1-5/HPF (0-5/HPF); Squamous Epithelial Cell Urine 0-1 /HPF (0-5/HPF); WBC Urine 30-100/HPF (0-5/HPF)
[2020-07-29 18:07] LABS: Add Manual Diff / Slide Review NO; Basophils Absolute Auto 0 /uL (0-100); Basophils Percent Auto 0.4 % (0-2); Eosinophils Absolute Auto 0 /uL (0-450); Eosinophils Percent Auto 0.2 % (2-4); Hematocrit 38.2 % (41-53); Hemoglobin 12.7 g/dL (13.5-17.5); Lymphocytes Absolute Auto 1800 /uL (1100-4500); Lymphocytes Percent Auto 16.7 % (25-40); Mean Corpuscular HGB Conc 33.2 % (30-36); Mean Corpuscular Hemoglobin 30.8 PG (26-34); Mean Corpuscular Volume 92.7 fL (80-100); Monocytes Absolute Auto 800 /uL (0-900); Monocytes Percent Auto 6.8 % (3-14); Neutrophils Absolute Auto 8300 /uL (1500-7000); Neutrophils Percent Auto 75.9 % (50-75); Platelet Count 235 X10^3/uL (150-400); Red Blood Cell Count 4.12 X10^6/uL (4.5-5.9); Red Cell Distribution Width 14.3 % (11.6-14.8)
[2020-07-29 18:08] LABS: INR 1.1 (0.9-1.3); Prothrombin Time 12.7 SECONDS (10.1-12.7)
[2020-07-29 18:10] LABS: PTT Partial Thromboplastin Tim 32 SECONDS (26.4-36.2)
[2020-07-29 18:11] LABS: Albumin 3.9 g/dL (3.5-5.0); Albumin Globulin Ratio 1.3 (1.0-2.8); Alkaline Phosphatase 107 U/L (38-126); Aspartate Aminotransferase 22 IU/L (17-59); BUN Creatinine Ratio 19.8 (6-22); Bilirubin Total 0.3 mg/dL (0.2-1.3); Blood Urea Nitrogen 16 mg/dL (9-20); Calcium 8.7 mg/dL (8.4-10.2); Carbon Dioxide 27 mmol/L (22-32); Chloride 100 mmol/L (98-107); Estimated Glomerular Filt Rate > 60.0 mL/min (>60); Glucose 208 mg/dL (80-110); HEMOLYSIS < 15 (0-50); Lipase 31 U/L (23-300); Potassium 3.6 mmol/L (3.4-5.1); Sodium 134 mmol/L (137-145); Total Protein 6.9 g/dL (6.3-8.2)
[2020-07-29 18:17] LABS: Alanine Aminotransferase 17 IU/L (<50)
--- NOTE | 2020-07-29 18:32 | ED_ITS ---
HPI - General Adult General Chief complaint: Weakness Stated complaint: General weakness Time Seen by Provider: 07/29/20 18:05 Source: patient and EMS Mode of arrival: EMS Limitations: altered mental status History of Present Illness HPI narrative: Patient is a 80-year-old male who is brought in by EMS for evaluation of worsening of his underlying dementia, altered mental status, weakness. The patient his somewhat unable/unwilling to participate in the interview. He states that he knows that he is in the hospital but does not know where. Does not know what year it is, does not directly answer questioning as to why he is here. He has episodes where he becomes agitated but is redirectable. Patient's daughter inform nursing over the phone that he does have a history of dementia and that he becomes more altered when he has infections such as urinary tract infections. There has been no reports of falling. Patient states he feels like he is constipated other than that has no other complaints. Related Data Home Medications Medication Instructions Recorded Confirmed Correctol 2 tab PO BEDTIME PRN #0 01/14/17 07/29/20 buspirone 1 tab PO BID PRN 03/07/18 07/29/20 carvedilol 1 tab PO BID 03/07/18 07/29/20 citalopram 20 mg PO DAILY 03/07/18 07/29/20 clopidogrel 75 mg PO DAILY 03/07/18 07/29/20 insulin glargine [Lantus Solostar 30 units SUB-Q QPM 03/07/18 07/29/20 U-100 Insulin] pravastatin 20 mg PO QPM 03/07/18 07/29/20 amlodipine 5 mg PO DAILY 12/28/19 07/29/20 losartan 50 mg PO DAILY 12/28/19 07/29/20 metformin 1,000 mg PO BIDAC 12/28/19 07/29/20 oxycodone-acetaminophen 0.5 - 1 tab PO BEDTIME PRN 12/28/19 07/29/20 tamsulosin 0.4 mg PO BID 12/28/19 07/29/20 trazodone 100 mg PO BEDTIME 12/28/19 07/29/20 trospium 20 mg PO BID 12/28/19 07/29/20 Previous Rx's Medication Instructions Recorded ibuprofen 600 mg PO TID-QID PRN #20 tab 03/07/18 Allergies Allergy/AdvReac Type Severity Reaction Status Date / Time Sulfa (Sulfonamide Allergy Mild CHILDHOOD Verified 12/28/19 10:09 Antibiotics) REACTION Review of Systems Review of Systems Narrative: Limited secondary to dementia Constitutional Constitutional: Denies fever(s) Cardiovascular Cardiovascular: Denies chest pain and Denies dyspnea Respiratory Respiratory: Denies dyspnea Gastrointestinal Gastrointestinal: Denies abdominal pain and Reports constipation Genitourinary Genitourinary: Reports urinary frequency Genitourinary: Reports urinary frequency Musculoskeletal Musculoskeletal: Reports muscle weakness Integumentary/Breasts Skin/Breast: Denies rash Neurologic Neurologic: Reports behavioral changes and Reports confusion Psychiatric Psychiatric: Reports behavioral changes and Reports confusion Hematologic/Lymphatic On Anticoagulants: No Patient History Medical History Atrial fibrillation CAD (coronary artery disease) Dementia Diabetes Hyperlipidemia Hypertension Urinary incontinence Surgical History History of coronary artery stent placement Social History household members: spouse Smoking Status: Former smoker alcohol intake: current Smoking Status: Former smoker alcohol intake frequency: 0-2 drinks per day Substance Use Type: marijuana Exam Initial Vital Signs Initial Vital Signs: Vital Signs Temperature 97.2 F L 07/29/20 17:26 Pulse Rate 117 H 07/29/20 17:26 Respiratory Rate 22 07/29/20 17:26 Blood Pressure 157/98 H 07/29/20 17:26 Pulse Oximetry 97 07/29/20 17:26 Const General: No acute distress Limitations: altered mental status [facility] Head: normal to inspection and normocephalic Resp Effort & Inspection: normal respiratory effort Auscultation: clear to auscultation bilaterally Cardio Rate: tachycardic Rhythm: regular rhythm GI Rectal Exam: No abnormal stool, No fecal impaction and heme negative stool Skin Lesions: no lesions Rashes: no rashes Neuro General: patient alert, patient awake and moves all extremities Cognition: abnormal cognition Extrem General: capillary refill normal Psych Appearance: disheveled Scores GCS Jossy coma scale eye opening: Spontaneous Boomer coma scale verbal response: Confused Boomer coma scale motor response: Obey commands Boomer coma scale total score: 14 Course Orders Ordered: ED Orders 07/29/20 17:29 EKG-12 Lead Stat 07/29/20 17:33 Urine Culture Stat Urine Microscopic Stat 07/29/20 17:51 Complete Blood Count AUTO DIFF Stat Comprehensive Metabolic Panel Stat Ethanol (ETOH) Stat Lactate (Lactic Acid) Stat Lipase Stat Partial Thromboplastin Time Stat Procalcitonin Stat Prothrombin Time INR Stat 07/29/20 18:33 CT abdomen pelvis w con Stat CT head/brain wo con Stat 07/29/20 19:16 Ammonia (NH3) Stat 07/29/20 19:18 COVID19 Stat 07/29/20 19:22 Blood Culture Stat Acetaminophen (Acetaminophen 325 Mg Tablet) 650 mg PO Q6HR PRN PRN Reason: Fever/Mild Pain (1-3) Last Admin: 07/29/20 23:30 Dose: 650 mg Documented by: AMARJIT Amlodipine Besylate (Amlodipine 5 Mg Tablet) 5 mg PO DAILY [facility] Buspirone HCl (Buspirone 5 Mg Tablet) 10 mg PO BID [facility] Carvedilol (Carvedilol 12.5 Mg Tablet) 12.5 mg PO BID [facility] Last Admin: 07/29/20 23:10 Dose: 12.5 mg Documented by: ALBA Citalopram Hydrobromide (Citalopram 10 Mg Tablet) 20 mg PO DAILY [facility] Clopidogrel Bisulfate (Clopidogrel 75 Mg Tablet) 75 mg PO DAILY [facility] Dextrose (Dextrose 50 % In Water 25 Gm/50 Ml Syringe) 25 gm IV PRN PRN PRN Reason: Hypoglycemia Enoxaparin Sodium (Enoxaparin 40 Mg/0.4 Ml Syringe) 40 mg SUBCUT DAILY [facility] Enoxaparin Sodium (Enoxaparin 40 Mg/0.4 Ml Syringe) 40 mg SUBCUT DAILY [facility] Sodium Chloride (Normal Saline 0.9%) 1,000 mls @ 150 mls/hr IV CONT [facility] Last Infusion: 07/29/20 21:29 Dose: 0 mls/hr Documented by: Admin: 07/29/20 20:34 Dose: 150 mls/hr Documented by: TESSIE Sodium Chloride (Normal Saline 0.9%) 1,000 mls @ 100 mls/hr IV CONT [facility] Last Admin: 07/29/20 23:10 Dose: 100 mls/hr Documented by: ALBA Ceftriaxone Sodium/Dextrose (Rocephin) 1 gm in 50 mls @ 100 mls/hr IV Q24H [facility] Insulin Aspart (Insulin Aspart 100 Unit/Ml Insuln Pen) 0 unit SUBCUT ACHS SARINA; Protocol Insulin Glargine (Insulin Glargine 100 Unit/Ml 3ml Pen) 10 unit SUBCUT 2100 [facility] Losartan Potassium (Losartan 50 Mg Tablet) 50 mg PO DAILY [facility] Naloxone HCl (Naloxone 0.4 Mg/Ml Vial) 0.2 mg IV Q2MIN PRN PRN Reason: Opiate Reversal Trospium 20 Mg (Tablet)) 20 mg PO BID [facility] Last Admin: 07/29/20 23:11 Dose: Not Given Documented by: ALBA Pravastatin Sodium (Pravastatin 20 Mg Tablet) 20 mg PO QPM [facility] Sennosides (Sennosides 8.6 Mg Tablet) 17.2 mg PO BEDTIME [facility] Last Admin: 07/29/20 23:10 Dose: 17.2 mg Documented by: ALBA Trazodone HCl (Trazodone 100 Mg Tablet) 100 mg PO BEDTIME PRN PRN Reason: Insomnia Last Admin: 07/29/20 23:31 Dose: 100 mg Documented by: AMARJIT Discontinued Medications Ceftriaxone Sodium/Dextrose (Rocephin) 1 gm in 50 mls @ 100 mls/hr IV NOW ONE Stop: 07/29/20 19:03 Last Infusion: 07/29/20 19:47 Dose: 0 mls/hr Documented by: Admin: 07/29/20 18:42 Dose: 100 mls/hr Documented by: YVON Magnesium Sulfate (Magnesium Sulfate) 2 gm in 50 mls @ 25 mls/hr IV NOW ONE Stop: 07/30/20 00:48 Last Admin: 07/29/20 23:09 Dose: 25 mls/hr Documented by: ALBA Cosigned by: AMARJIT Insulin Aspart (Insulin Aspart 100 Unit/Ml Insuln Pen) 0 unit SUBCUT ACHS [facility]; Protocol Insulin Glargine (Insulin Glargine 100 Unit/Ml 3ml Pen) 10 unit SUBCUT 2100 [facility] Lorazepam (Lorazepam 2 Mg/Ml Inj) 0.5 mg IV NOW ONE Stop: 07/29/20 19:37 Last Admin: 07/29/20 19:48 Dose: 0.5 mg Documented by: TESSIE Vital Signs Vital signs: Vital Signs - 8 hr 07/29/20 17:26 07/29/20 19:04 07/29/20 19:15 Temperature 97.2 F L Pulse Rate 117 H 104 H 104 H Respiratory Rate 22 Blood Pressure 157/98 H Pulse Oximetry 97 99 97 07/29/20 19:30 07/29/20 19:48 07/29/20 20:00 Temperature Pulse Rate 109 H 113 H 98 H Respiratory Rate Blood Pressure Pulse Oximetry 98 96 94 Medical Decision Making Lab Data Lab results reviewed: Yes I reviewed the patient's lab results. Result diagrams: 07/29/20 17:51 07/29/20 17:51 Labs: Lab Results 07/29/20 07/29/20 07/29/20 Range/Units 17:33 17:51 17:51 WBC 11.0 (4.5-11.0) X10^3/uL RBC 4.12 L (4.5-5.9) X10^6/uL Hgb 12.7 L (13.5-17.5) g/dL Hct 38.2 L (41-53) % MCV 92.7 (80-100) fL MCH 30.8 (26-34) PG MCHC 33.2 (30-36) % RDW 14.3 (11.6-14.8) % Plt Count 235 (150-400) X10^3/uL Neut % (Auto) 75.9 H (50-75) % Lymph % (Auto) 16.7 L (25-40) % [place] % (Auto) 6.8 (3-14) % Eos % (Auto) 0.2 L (2-4) % Baso % (Auto) 0.4 (0-2) % Neut # (Auto) 8300 H (4591-8331) /uL Lymph # (Auto) 1800 (7487-3613) /uL [place] # (Auto) 800 (0-900) /uL Eos # (Auto) 0 (0-450) /uL Baso # (Auto) 0 (0-100) /uL PT 12.7 (10.1-12.7) SECONDS INR 1.1 (0.9-1.3) APTT 32 (26.4-36.2) SECONDS Sodium (137-145) mmol/L Potassium (3.4-5.1) mmol/L Chloride (98-107) mmol/L Carbon Dioxide (22-32) mmol/L BUN (9-20) mg/dL Creatinine (0.66-1.25) mg/dL Estimated GFR (>60) mL/min BUN/Creatinine Ratio (6-22) Glucose (80-110) mg/dL Hemoglobin A1c (4.0-6.0) % Lactate (0.7-2.1) mmol/L Calcium (8.4-10.2) mg/dL Magnesium (1.6-2.3) mg/dL Total Bilirubin (0.2-1.3) mg/dL AST (17-59) IU/L ALT (<50) IU/L Alkaline Phosphatase (38-126) U/L Ammonia (9-30) umol/L Total Protein (6.3-8.2) g/dL Albumin (3.5-5.0) g/dL Globulin (1.7-4.1) g/dL Albumin/Globulin Ratio (1.0-2.8) Lipase (23-300) U/L Procalcitonin (<0.5) ng/mL Urine RBC 1-5/hpf (0-5/HPF) Urine WBC 30-100/hpf H (0-5/HPF) Ur Squamous Epith Cells 0-1 /hpf (0-5/HPF) Amorphous Sediment 1+ Urine Bacteria Many (>30) H (None) Urine Mucus 1+ H (Negative) Ur Culture Indicated? Specimen cultured Ethyl Alcohol ( - 10) mg/dL SARS-CoV-2 (PCR) (Negative) 07/29/20 07/29/20 07/29/20 Range/Units 17:51 17:51 17:51 WBC (4.5-11.0) X10^3/uL RBC (4.5-5.9) X10^6/uL Hgb (13.5-17.5) g/dL Hct (41-53) % MCV (80-100) fL MCH (26-34) PG MCHC (30-36) % RDW (11.6-14.8) % Plt Count (150-400) X10^3/uL Neut % (Auto) (50-75) % Lymph % (Auto) (25-40) % [place] % (Auto) (3-14) % Eos % (Auto) (2-4) % Baso % (Auto) (0-2) % Neut # (Auto) (1464-0723) /uL Lymph # (Auto) (4278-4008) /uL [place] # (Auto) (0-900) /uL Eos # (Auto) (0-450) /uL Baso # (Auto) (0-100) /uL PT (10.1-12.7) SECONDS INR (0.9-1.3) APTT (26.4-36.2) SECONDS Sodium 134 L (137-145) mmol/L Potassium 3.6 (3.4-5.1) mmol/L Chloride 100 (98-107) mmol/L Carbon Dioxide 27 (22-32) mmol/L BUN 16 (9-20) mg/dL Creatinine 0.81 (0.66-1.25) mg/dL Estimated GFR > 60.0 (>60) mL/min BUN/Creatinine Ratio 19.8 (6-22) Glucose 208 H (80-110) mg/dL Hemoglobin A1c (4.0-6.0) % Lactate 4.0 H (0.7-2.1) mmol/L Calcium 8.7 (8.4-10.2) mg/dL Magnesium (1.6-2.3) mg/dL Total Bilirubin 0.3 (0.2-1.3) mg/dL AST 22 (17-59) IU/L ALT 17 (<50) IU/L Alkaline Phosphatase 107 (38-126) U/L Ammonia (9-30) umol/L Total Protein 6.9 (6.3-8.2) g/dL Albumin 3.9 (3.5-5.0) g/dL Globulin 3.0 (1.7-4.1) g/dL Albumin/Globulin Ratio 1.3 (1.0-2.8) Lipase 31 (23-300) U/L Procalcitonin < 0.05 (<0.5) ng/mL Urine RBC (0-5/HPF) Urine WBC (0-5/HPF) Ur Squamous Epith Cells (0-5/HPF) Amorphous Sediment Urine Bacteria (None) Urine Mucus (Negative) Ur Culture Indicated? Ethyl Alcohol ( - 10) mg/dL SARS-CoV-2 (PCR) (Negative) 07/29/20 07/29/20 07/29/20 Range/Units 17:51 17:51 17:51 WBC (4.5-11.0) X10^3/uL RBC (4.5-5.9) X10^6/uL Hgb (13.5-17.5) g/dL Hct (41-53) % MCV (80-100) fL MCH (26-34) PG MCHC (30-36) % RDW (11.6-14.8) % Plt Count (150-400) X10^3/uL Neut % (Auto) (50-75) % Lymph % (Auto) (25-40) % [place] % (Auto) (3-14) % Eos % (Auto) (2-4) % Baso % (Auto) (0-2) % Neut # (Auto) (4577-1779) /uL Lymph # (Auto) (9582-5378) /uL [place] # (Auto) (0-900) /uL Eos # (Auto) (0-450) /uL Baso # (Auto) (0-100) /uL PT (10.1-12.7) SECONDS INR (0.9-1.3) APTT (26.4-36.2) SECONDS Sodium (137-145) mmol/L Potassium (3.4-5.1) mmol/L Chloride (98-107) mmol/L Carbon Dioxide (22-32) mmol/L BUN (9-20) mg/dL Creatinine (0.66-1.25) mg/dL Estimated GFR (>60) mL/min BUN/Creatinine Ratio (6-22) Glucose (80-110) mg/dL Hemoglobin A1c 7.6 H (4.0-6.0) % Lactate (0.7-2.1) mmol/L Calcium (8.4-10.2) mg/dL Magnesium 1.1 L (1.6-2.3) mg/dL Total Bilirubin (0.2-1.3) mg/dL AST (17-59) IU/L ALT (<50) IU/L Alkaline Phosphatase (38-126) U/L Ammonia (9-30) umol/L Total Protein (6.3-8.2) g/dL Albumin (3.5-5.0) g/dL Globulin (1.7-4.1) g/dL Albumin/Globulin Ratio (1.0-2.8) Lipase (23-300) U/L Procalcitonin (<0.5) ng/mL Urine RBC (0-5/HPF) Urine WBC (0-5/HPF) Ur Squamous Epith Cells (0-5/HPF) Amorphous Sediment Urine Bacteria (None) Urine Mucus (Negative) Ur Culture Indicated? Ethyl Alcohol < 10 ( - 10) mg/dL SARS-CoV-2 (PCR) (Negative) 07/29/20 07/29/20 Range/Units 19:16 19:18 WBC (4.5-11.0) X10^3/uL RBC (4.5-5.9) X10^6/uL Hgb (13.5-17.5) g/dL Hct (41-53) % MCV (80-100) fL MCH (26-34) PG MCHC (30-36) % RDW (11.6-14.8) % Plt Count (150-400) X10^3/uL Neut % (Auto) (50-75) % Lymph % (Auto) (25-40) % [place] % (Auto) (3-14) % Eos % (Auto) (2-4) % Baso % (Auto) (0-2) % Neut # (Auto) (1133-3978) /uL Lymph # (Auto) (6583-9014) /uL [place] # (Auto) (0-900) /uL Eos # (Auto) (0-450) /uL Baso # (Auto) (0-100) /uL PT (10.1-12.7) SECONDS INR (0.9-1.3) APTT (26.4-36.2) SECONDS Sodium (137-145) mmol/L Potassium (3.4-5.1) mmol/L Chloride (98-107) mmol/L Carbon Dioxide (22-32) mmol/L BUN (9-20) mg/dL Creatinine (0.66-1.25) mg/dL Estimated GFR (>60) mL/min BUN/Creatinine Ratio (6-22) Glucose (80-110) mg/dL Hemoglobin A1c (4.0-6.0) % Lactate (0.7-2.1) mmol/L Calcium (8.4-10.2) mg/dL Magnesium (1.6-2.3) mg/dL Total Bilirubin (0.2-1.3) mg/dL AST (17-59) IU/L ALT (<50) IU/L Alkaline Phosphatase (38-126) U/L Ammonia < 9 L (9-30) umol/L Total Protein (6.3-8.2) g/dL Albumin (3.5-5.0) g/dL Globulin (1.7-4.1) g/dL Albumin/Globulin Ratio (1.0-2.8) Lipase (23-300) U/L Procalcitonin (<0.5) ng/mL Urine RBC (0-5/HPF) Urine WBC (0-5/HPF) Ur Squamous Epith Cells (0-5/HPF) Amorphous Sediment Urine Bacteria (None) Urine Mucus (Negative) Ur Culture Indicated? Ethyl Alcohol ( - 10) mg/dL SARS-CoV-2 (PCR) Negative (Negative) Urine Dip Bedside Urine Glucose Negative Bedside Urine Bilirubin - Negative Bedside Urine Ketone +/- 5 Urine Specific [place] 1.020 Bedside Urine Occult Blood +/- Bedside Urine pH 6 Bedside Urine Protein + 30 Bedside Urine Urobilinogen - Negative Bedside Urine Nitrite - Negative Bedside Urine Leukocytes ++ 125 Esterase Point of care testing: Urine Dip Bedside Urine Glucose Negative Bedside Urine Bilirubin - Negative Bedside Urine Ketone +/- 5 Urine Specific [place] 1.020 Bedside Urine Occult Blood +/- Bedside Urine pH 6 Bedside Urine Protein + 30 Bedside Urine Urobilinogen - Negative Bedside Urine Nitrite - Negative Bedside Urine Leukocytes ++ [address] scan - head: Radiologist's Impression: [address] [id number] Scan ReportSigned Patient: Morro Diaz R#: [id number]: [id number]:[id number]/Sex: 80 / MDate of Service: 07/29/20Loc: EDAccession Number: [id number] Procedure: CT head/brain wo con Ordering Provider: Davy Soriano D.O. PROCEDURE: CT HEAD/BRAIN WO CON INDICATIONS: AMS TECHNIQUE: Noncontrast 4.5 mm thick angled axial sections acquired from the foramen magnum to the vertex, with coronal and sagittal reformats. For radiation dose reduction, the following was used: automated exposure control, adjustment of mA and/or kV according to patient size. COMPARISON: [facility], CT, CT HEAD/BRAIN WO CON, 06/12/2020, 20:32. FINDINGS: Image quality: Adequate, however there is unavoidable patient motion due to altered mental status. CSF spaces: Basal cisterns are patent. No extra-axial fluid collections. The ventricles are moderately, symmetrically prominent, stable compared to the prior study. Brain: No intracranial bleeds or masses. There is cerebral volume loss for age, with resultant ventricular and sulcal prominence. There are periventricular and deep white matter chronic small vessel ischemic changes. Tiny, stable right thalamic lacunar infarct. There is intracranial internal carotid artery atherosclerosis. Skull and face: Calvarium and visualized facial bones appear intact, without suspicious lesions. Sinuses: Visualized sinuses and mastoids are clear. IMPRESSION: 1. Limited study due to motion. 2. No CT evidence of acute intracranial process. 3. Stable mild hydrocephalus. 4. Chronic microvascular ischemic changes. Dictated by: Bea Pacheco M.D. on 07/29/2020 at 19:29 Approved by: Bea Pacheco M.D. on 07/29/2020 at 19:32 CT scan - abdomen/pelvis: Radiologist's Impression: [address] [id number] Scan ReportSigned Patient: Morro Diaz JMR#: [id number]: [id number]:[id number]/Sex: 80 / MDate of Service: 07/29/20Loc: EDAccession Number: [id number] Procedure: CT abdomen pelvis w con Ordering Provider: Davy Soriano D.O. PROCEDURE: CT ABDOMEN PELVIS W CON INDICATIONS: constipation and LBP TECHNIQUE: After the administration of intravenous contrast, 5 mm thick sections acquired from the diaphragm to the symphysis. 5 mm coronal and sagittal reformats were acquired. For radiation dose reduction, the following was used: automated exposure control, adjustment of mA and/or kV according to patient size. COMPARISON: [facility], CT, CT ABDOMEN PELVIS W CON, 12/28/2019, 12:26. FINDINGS: Image quality: Excellent. ABDOMEN: Lung bases: Small patchy ground-glass opacities in the left lung base laterally are stable.. Heart size is normal. Coronary artery calcification versus stenting. Very small hiatal hernia. Solid organs: Liver is normal in size and enhancement. Gallbladder is normal. Biliary system is non dilated. Pancreas enhances normally. Spleen is normal in size and enhancement. Stable low-density right 1.9 cm adrenal nodule. No left adrenal nodule. Kidneys demonstrate normal size and enhancement, without hydronephrosis. Peritoneum and bowel: Bowel loops demonstrate normal wall thickness and caliber. No free fluid or air. Mildly increased amount of solid stool present throughout the colon which is redundant in the transverse portion. Partially peripherally calcified ovoid nodular density is present along the right anterior abdominal wall in area devoid of rectus musculature. This is similar in appearance compared to the prior study. Nodes and vessels: No retroperitoneal or mesenteric adenopathy by size criteria. Aorta and inferior vena cava are normal in size. Moderate abdominal aortic atherosclerotic calcification. Miscellaneous: No ventral hernias. PELVIS: Genitourinary: There is a prominent amount of air anteriorly in the urinary bladder and the urinary bladder wall is thickened. Prostate gland demonstrates coarse calcification. Miscellaneous: No inguinal hernias or adenopathy. Bones: At the L4-5 level, there is severe disc degeneration and endplate irregularity causing a severe central canal stenosis. Progressive endplate erosive changes raise the possibility of chronic discitis.. Right hemilaminectomy changes in the lumbar spine. No vertebral body compression fractures. IMPRESSION: 1. Prominent amount of air anteriorly within the urinary bladder may be secondary to recent instrumentation and or gas-forming organism from UTI. 2. Very slight progression of endplate erosion and cortical irregularity and at the L4-5 level raising the possibility of chronic discitis. Correlate clinically. There is a severe central canal stenosis at this level. 3. Moderate obstipation. 4. Chronic findings as above. Dictated by: Bea Pacheco M.D. on 07/29/2020 at 19:34 Approved by: Bea Pacheco M.D. on 07/29/2020 at 19:49 MDM Narrative Medical decision making narrative: Patient is not febrile but is tachycardic and tachypneic. Does not have a leukocytosis but does have an elevated lactate. He has not been hypotensive. CT scan of the head is unremarkable. Urinalysis concerning for UTI. CT scan of the abdomen shows findings consistent with UTI. Blood cultures were obtained. Urine cultures obtained. Was given antibiotics. Fluid resuscitation started as well. Unsure how much of a change his mental status is from baseline however nursing discussion with patient's family over the phone states that at baseline he is confused and when he has infections he becomes more confused. Given his presentation today feel that he needs admitted to the hospital for IV antibiotics. Discussed the case with MOSHE toro who will admit for further evaluation and treatment. Discharge Plan Departure Patient Disposition: Admitted as Observation Clinical Impression: AMS (altered mental status), Weakness, Acute UTI Admit Date/Time: 07/29/20 20:25 Admit Provider: Yesi Toro
[2020-07-29] MEDS: CEFTRIAXONE 1 GM/50 ML FROZ.PIGGY IV (18:42)
[2020-07-29 18:52] LABS: Ethanol (ETOH) < 10 mg/dL
[2020-07-29 19:22] LABS: Procalcitonin < 0.05 ng/mL (<0.5)
[2020-07-29 19:44] LABS: COVID19 -Nasal RAPID Negative (Negative)
[2020-07-29 19:45] LABS: Ammonia (NH3) < 9 umol/L (9-30)
[2020-07-29] MEDS: LORazepam 2 MG/ML INJ 0.5 MG IV (19:48)
[2020-07-29] MEDS: SODIUM CHLORIDE 0.9% 1,000 ML 150 ML IV (20:34)
[2020-07-29 20:43] LABS: Reflexed Lactate in 2 Hours Y
--- NOTE | 2020-07-29 20:59 | PC.NURSE ---
Addendum entered by Ermelinda Golden R.N. 07/29/20 21:00: Spoke with patients daughter Amisha who says her dad has dementia and whenever he has a UTI he gets confused, uncooperative, and a bit combative. He tries to pull out his IV and is very restless Original Note: Pt is confused, trying to get OOB. Insists on wearing his pants that have urine on them. Tried to clean him up as well as i could;
[2020-07-29 21:10] LABS: Lactate 2HR (Lactic Acid Rflx) 2.1 mmol/L (0.7-2.1)
[2020-07-29 22:39] LABS: Magnesium 1.1 mg/dL (1.6-2.3)
[2020-07-29 22:41] LABS: Hemoglobin A1C% w Est Avg Glu 7.6 % (4.0-6.0)
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
[2020-07-29] MEDS: MAGNESIUM SULFATE 2 GM/50 ML PIGGYBACK IV (23:09)
[2020-07-29] MEDS: carvediloL 12.5 MG TABLET PO (23:10)
[2020-07-29] MEDS: SENNOSIDES 8.6 MG TABLET 17.2 MG PO (23:10)
[2020-07-29] MEDS: SODIUM CHLORIDE 0.9% 1,000 ML 100 ML IV (23:10)
--- NOTE | 2020-07-29 23:26 | PC.NURSE ---
patient admitted from ER. Patient A/O only to self. Unable to provide much history about self or provide information about home medications. Vitals stable, bed alarm on. Patient unlikely to use call light and has tried to jump out of bed multiple times already but is easily redirected. hill was in ER with patient but then went home. Patient does not know any of his family members' phone numbers. NS running at 150 from ER L hand PIV and changed to 100ml/hr per hospitalist. Tele on.
[2020-07-29] MEDS: ACETAMINOPHEN 325 MG TABLET 650 MG PO (23:30)
[2020-07-29] MEDS: TRAZODONE 100 MG TABLET PO (23:31)
[2020-07-30] VITALS (7 sets, daily range): BP systolic 142–179; BP diastolic 73–92; PULSE 75–88; RESP 16–20; TEMP 36.5–37; O2SAT 96–98
[2020-07-30] MEDS: INSULIN GLARGINE 100 UNIT/ML 3ML PEN 10 UNIT SUBCUT ×2 (01:05→20:27)
--- NOTE | 2020-07-30 03:44 | PC.NURSE ---
Pt started shift stable but confused. Pt attempted to remove telemetry stickers multiple times and climb out of bed. Pt given trazadone for sleep and acetaminophen for pain- no issues with swallowing. Fluids running as prescribed w/ mag rider. Mg infusion rate reduced to limit pain at IV site. At approx 2330, pt removed IV site- new IV placed & infusion resumed w/ no sign of infiltration. Pt assigned a sitter and is resting comfortably.
[2020-07-30 05:39] LABS: Add Manual Diff / Slide Review NO; Basophils Absolute Auto 0 /uL (0-100); Basophils Percent Auto 0.4 % (0-2); Eosinophils Absolute Auto 100 /uL (0-450); Eosinophils Percent Auto 1.9 % (2-4); Hematocrit 31.2 % (41-53); Hemoglobin 10.6 g/dL (13.5-17.5); Lymphocytes Absolute Auto 1900 /uL (1100-4500); Lymphocytes Percent Auto 32.8 % (25-40); Mean Corpuscular Hemoglobin 31.7 PG (26-34); Mean Corpuscular Volume 93.3 fL (80-100); Monocytes Absolute Auto 700 /uL (0-900); Neutrophils Absolute Auto 3000 /uL (1500-7000); Neutrophils Percent Auto 52.9 % (50-75); Platelet Count 171 X10^3/uL (150-400); Red Blood Cell Count 3.35 X10^6/uL (4.5-5.9); Red Cell Distribution Width 13.8 % (11.6-14.8); White Blood Cell Count 5.7 X10^3/uL (4.5-11.0)
[2020-07-30 06:00] LABS: Blood Urea Nitrogen 16 mg/dL (9-20); Calcium 8.2 mg/dL (8.4-10.2); Carbon Dioxide 30 mmol/L (22-32); Chloride 103 mmol/L (98-107); Estimated Glomerular Filt Rate > 60.0 mL/min (>60); Glucose 130 mg/dL (80-110); HEMOLYSIS < 15 (0-50); Magnesium 1.9 mg/dL (1.6-2.3); Potassium 3.5 mmol/L (3.4-5.1); Sodium 137 mmol/L (137-145)
[2020-07-30 07:23] LABS: Thyroid Stimulating Hormone 3.28 uIU/mL (0.47-4.68)
[2020-07-30] MEDS: BUSPIRONE 5 MG TABLET 10 MG PO ×2 (09:33→20:25)
[2020-07-30] MEDS: AMLODIPINE 5 MG TABLET PO (09:33)
[2020-07-30] MEDS: carvediloL 12.5 MG TABLET PO ×2 (09:33→20:25)
[2020-07-30] MEDS: CLOPIDOGREL 75 MG TABLET PO (09:33)
[2020-07-30] MEDS: ENOXAPARIN 40 MG/0.4 ML SYRINGE SUBCUT (09:34)
[2020-07-30] MEDS: CITALOPRAM 10 MG TABLET 20 MG PO (09:34)
[2020-07-30] MEDS: LOSARTAN 50 MG TABLET PO (09:34)
--- NOTE | 2020-07-30 10:15 | CM.DANOTE ---
Addendum entered by Jennifer Sevilla R.N. 07/30/20 13:01: Rigo at [facility] left a message and stated that patient is currently under their services. Attempted to get in touch with Rigo, left her a message regarding patient, that he is currently under OBS, but being reviewed. Let her know that it is uncertain if patient will discharge today. Asked her in the message what disciplines he is currently receiving, for he could benefit with BASE LOADER. Will await her response. Called Osmin, patient's daughter per P.T/O.T, for they would like to have her available before they work with patient. Daughter stated that she can be here at approximately 1330. Let P.T. team know. Also, will leave Medicaid application in patient's room, per daughter's request. Addendum entered by Jennifer Sevilla R.N. 07/30/20 11:18: Called [facility] and spoke to Micaela, and let her know about referral. She indicated that they have worked with patient before. Let her know that this was faxed, and that patient has not yet been discharged, and has not yet worked with P.T. She will let Rigo in referrals know. Original Note: DCP: Case received, EMR reviewed and checked on patient. He was sleeping, and has history of dementia. Was informed that patient is alert to self only. Called patient's , Hemalatha, and daughter, Osmin, as well. Was able to obtain information on patient regarding his baseline activity level at home, as well as his cognitive level. DCP assessment completed with information currently available. Patient is a 80 year old male who admitted yesterday evening to the care of the hospitalist team. PCP: Dr. Patterson. Payer: confirmed: Medicare/ for Life. Patient came to the hospital via EMS secondary to decreased LOC, altered mental status as well as increased weakness. Patient holds current diagnosis of acute UTI. Called and spoke to patient's , Hemalatha. She confirmed that her and patient reside with their son, Wilfredo. Shortly afterward, spoke to patient's daughter, Osmin. She stated, I'm the one most involved with setting up dad's medication, as well as insurance issues. Daughter, Osmin, resides in [place], and works in [employer] in the mental health field. Stated that her mother is having a heart procedure today, and she is taking her. Osmin also indicated that she is the best point of contact. Osmin's phone number is: [phone]. Daughter mentioned that her father has noted increased weakness at home. Denies recent falls. Stated that his memory continues to get worse, and he starts sundowning at around 4:00pm. denies that patient has attempted to wander off. It was noted that family had applied for Medicaid to see about having some assistance with placement of patient into a memory care unit. Confirmed with Osmin that they have not yet initiated Medicaid application. Stated that her parents have about $2500.00 a month in income. She also stated that she is working on getting J[employer] for her brother, who lives with patient. Stated that her brother, Wilfredo, helps out with the heavy lifting at home. Let Osmin know that we can provide Medicaid application for her, when she comes by, since she will be primary visitor. Discussed home health since patient is weak, and daughter indicated they use [facility] for her mom, and would be the best to go with. Can add BASE LOADER as well to continue to assist with resources for patient. Had Dr. Bagley sign face to face. Added P.T. orders for patient here in the hospital since he only had O.T, per Dr. Bagley. P: DCP to continue to follow, and will update daughter. He will work with P.T, O.T. Plan is for home with [facility]. Will fax information today. Patient could possibly discharge today. Jennifer Sevilla RN/Sql Programmer
--- NOTE | 2020-07-30 11:07 | PT-IP ANOTE ---
Received PT orders and reviewed chart. Per nursing, pt is sleeping soundly and nursing requests he be allowed to sleep. Will check later for timing of therapy evaluation.
--- NOTE | 2020-07-30 11:14 | OT.IPNOTE ---
Checked with nursing to see pt for OT eval, pt sleeping soundly and per nursing to let the pt sleep for now.
--- NOTE | 2020-07-30 11:23 | PC.NURSE ---
Pt cooperative this morning, no agitation, sleeping frequently, up to chair for breakfast, back to bed; IV fluids infusing; swallows pills whole; LS diminished; PT @ 1100 postponed due to sleep
[2020-07-30] MEDS: INSULIN ASPART 100 UNIT/ML INSULN PEN SUBCUT (12:35)
--- NOTE | 2020-07-30 14:20 | PT.IIE ---
Surgical History (Last Reviewed 07/30/20 @ 00:27 by CAROLANN Patel) History of coronary artery stent placement Medical History (Last Reviewed 07/30/20 @ 01:02 by Davy Soriano DO) Atrial fibrillation CAD (coronary artery disease) Dementia Diabetes Hyperlipidemia Hypertension Urinary incontinence Physical Therapy Inpatient Evaluation/Re-Eval M1 PT/OT-IP Prior Functional Status Start: 07/30/20 10:29 Freq: NEEDED Status: Active Protocol: Document 07/30/20 14:19 AW (Rec: 07/30/20 14:31 AW [id number]) Medical Review Prior Functional Status Medical History Reviewed Yes Communication Pt has dementia and reportedly sundowns beginning at ~1600 daily. Family reports 1030- 1630 are his most coherent hours. Mobility and Gait Pt is modified independent with use of FWW at home. He has a transport wheelchair for appointments. Activities of Daily Living and IADL's Pt's son and daughter provide assist with all ADL's. He does not take showers and refuses any female bath aides. Pt is frequently incontinent even with use of urinal. He eats without assist. Prior Functional Level (Other details) Pt's daughter reports at least 4 falls in the past one month . Social History Household Members spouse,family Number of Floors (Floors) 3 or More Floors Number of Stairs To Enter/Railing? 5 CHLOE with B rails. Pt goes up 4 steps with B rails to access the living room level. He then descends 4 steps with B rails to access his bedroom. Home Environment Standard Height Toilet,Tub/ Shower Home Equipment Front Wheel Walker,Straight Cane,Shower Seat with Backrest ,Grab Bars Near Toilet,Grab Bars In Shower Additional Social History Comment Pt lives with his spouse, Hemalatha , in [facility]. Their son, CINDY, also lives with them and does all the heavy lifting. Pt's spouse has been receiving home health services for the last month and had a procedure today. Daughter, Osmin is heavily involved in daily care, doing more of the coordination and medication management. M2 PT-IP Current Condition Start: 07/30/20 10:29 Freq: NEEDED Status: Active Protocol: Document 07/30/20 14:19 AW (Rec: 07/30/20 14:31 AW [id number]) Physical Therapy Current Condition Current Condition Evaluation Date 07/30/20 Treatment Diagnosis AMS, UTI, weakness, impaired gait and mobility Onset Date one month M3 PT-IP Subjective Start: 07/30/20 10:29 Freq: NEEDED Status: Active Protocol: Document 07/30/20 14:19 AW (Rec: 07/30/20 14:31 AW [id number]) Subjective Physical Therapy Visit Type Type Initial Evaluation Visit Start Time 13:50 Visit Stop Time 14:19 Total Visit Minutes 29 Notes Co-eval with OT. Pt's daughter , Osmin, was present throughout and contibuted heavily to history. Number of GARAGE DOOR INSTALLER Visits 0 Physical Therapy Visit Comments Patient Comments Pt is alert and willing to participate with PT. Therapy Pain Assessment Pain When Pain Assessed During Mobility Pain Present Pain Present Denied Pain M4 PT-IP Mobility and Gait Start: 07/30/20 10:29 Freq: NEEDED Status: Active Protocol: Document 07/30/20 14:19 AW (Rec: 07/30/20 14:41 AW [id number]) PT-Bed Mobility Assessment Supine to Sit Supine to Sit Minimal Assistance,1 Person Assistance Sit to Supine Sit to Supine Standby Assistance Scooting Scooting to Edge of Bed Contact Guard Assistance PT-Transfer Assessment Sit to and From Stand Sit to and from Stand Contact Guard Assistance,Use of Upper Extremities Equipment Transfer Assistive Device Gait Belt,Front Wheeled Walker Orthotic/Prosthetic Devices or Brace: No Transfers Transfer Destination Bed Transfer Technique Stand Step Pivot Transfer Ability Level of Assist Contact Guard Assistance Comments Mobility Comments With HOB flat, pt completed bed mobility min 1PA, stating this bed makes it hard. Sitting balance required CGA. Pt then stood from the bed in lowest position CGA and cues to push from the bed instead of pulling on the walker. He ambulated to the sink with FWW CGA and completed handwashing and wiped his face with a washcloth using heavy dependence on the counter for balance assist. Pt had +LOB but was able to recover CGA. He complained of back pain and requested return to bed, refusing the chair. Pt returned to supine SBA and positioned himself on his right side. Bed alarm was armed for safety and his daughter remained in the room. Gait Assessment Gait Gait Assistance Required: Contact Guard Assist Distance (Feet) 10 Assistive Devices Assistive Device Gait Belt,Front Wheeled Walker Orthotic/Prosthetic Devices or Brace: No Gait Deviations General Gait Pattern Antalgic,Decreased Stride Length,Decreased Feet Clearance,Flexed Trunk,Lateral Trunk Lean,Narrow Based Gait Factors Limiting Gait Function Factors Limiting Gait Function Decreased Strength,Difficulty Following Directions,Limited Range of Motion,Pain,Poor Balance,Poor Safety Awareness Comments Gait Comments Pt ambulates with bilateral genu varum and increased right knee flexion. He required cues due to impulsivity and abandoning the walker inappropriately during transfer. Stair Climbing Assessment Comments Stair Climbing Comments Not assessed. PT-Balance Assessment Sitting Balance and Reactions Static Sitting Balance Ability Fair Dynamic Sitting Balance Ability Fair Standing Balance and Reactions Static Standing Balance Ability Fair Dynamic Standing Balance Ability Poor Device Used FWW M5 PT-IP Objective Assessments Start: 07/30/20 10:29 Freq: NEEDED Status: Active Protocol: Document 07/30/20 14:19 AW (Rec: 07/30/20 14:41 AW [id number]) Orientation Orientation/Cognition Level of Alertness Confusional State Orientation Name,Place Safety Awareness Decreased Safety Awareness Memory Description 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,Digital Marketing Lead Impaired Gross Range of Motion Lower Extremity ROM Assessment Bilaterally Impaired Strength Lower Extremity Strength Assessment Bilaterally Impaired Hip 3+/5 Knee 3+/5 M6 PT-IP Treatment Start: 07/30/20 10:29 Freq: NEEDED Status: Active Protocol: Document 07/30/20 14:19 AW (Rec: 07/30/20 14:41 AW [id number]) Physical Therapy Treatment Education Education Provided Safety M7 PT-IP Assessment and Plan Start: 07/30/20 10:29 Freq: NEEDED Status: Active Protocol: Document 07/30/20 14:19 AW (Rec: 07/30/20 14:47 AW [id number]) PT Summary Assessment and Plan Potential Rehabilitation Potential Fair Status of Condition at Evaluation Stable Summary Impairments Pain,ROM,Strength,Balance, Cognition,Bed Mobility, Transfers,Gait Assessment Summary BRIAN is a 80 yo man with dementia who is admitted with AMS and weakness secondary to UTI. He requires assist with all ADL's at baseline and is modified indpedent for household mobility using a FWW . He has a transport wheelchair for appointments. He reportedly sundowns after ~ 1630 daily. His daughter and son coordinate his care, providing nearly 24/7 care. On evaluation, pt required CGA for transfers and ambulation with FWW. His daughter states she believes his current mobility is close to his baseline for this time of day. Pt was recently discharged from home health PT services but would benefit from new orders to continue to address safety at home in the context of multiple recent falls. Goals Bed Mobility Goal Standby Assistance Transfer Goal Standby Assistance,Front Wheeled Walker Gait Goal Standby Assistance,Front Wheel Walker Gait Distance 50 Other Goals - up/down 5 steps with B rails SBA Frequency of Treatment Frequency Of Treatment Once a Day Treatment Plan Physical Therapy Treatment Plan Bed Mobility Training,Transfer Training,Gait Training, Therapeutic Exercise,Balance Retraining,Discharge Planning, Hot or Cold Pack,Neuromuscular Re-ed Other Recommendations and Next Treatment progress gait training with Focus FWW; stairs as tolerated Recommendations To Nursing Amount of Assist Needed 1 Person Assist Discharge Recommendations PT Discharge Recommendations Home with 08/02 Assist,Home Health Transportation Needs at Discharge Private Vehicle
--- NOTE | 2020-07-30 14:21 | OT.IP.EVAL ---
Past Medical History (Last Reviewed 07/30/20 @ 01:02 by Davy Soriano DO) Atrial fibrillation CAD (coronary artery disease) Dementia Diabetes Hyperlipidemia Hypertension Urinary incontinence Surgical History (Last Reviewed 07/30/20 @ 00:27 by CAROLANN Patel) History of coronary artery stent placement Occupational Therapy Inpatient Evaluation/Re-Eval M1 PT/OT-IP Prior Functional Status Start: 07/30/20 10:29 Freq: NEEDED Status: Active Protocol: Document 07/30/20 14:19 AW (Rec: 07/30/20 14:31 AW [id number]) Medical Review Prior Functional Status Medical History Reviewed Yes Communication Pt has dementia and reportedly sundowns beginning at ~1600 daily. Family reports 1030- 1630 are his most coherent hours. Mobility and Gait Pt is modified independent with use of FWW at home. He has a transport wheelchair for appointments. Activities of Daily Living and IADL's Pt's son and daughter provide assist with all ADL's. He does not take showers and refuses any female bath aides. Pt is frequently incontinent even with use of urinal. He eats without assist. Prior Functional Level (Other details) Pt's daughter reports at least 4 falls in the past one month . Social History Household Members spouse,family Number of Floors (Floors) 3 or More Floors Number of Stairs To Enter/Railing? 5 CHLOE with B rails. Pt goes up 4 steps with B rails to access the living room level. He then descends 4 steps with B rails to access his bedroom. Home Environment Standard Height Toilet,Tub/ Shower Home Equipment Front Wheel Walker,Straight Cane,Shower Seat with Backrest ,Grab Bars Near Toilet,Grab Bars In Shower Additional Social History Comment Pt lives with his spouse, Hemalatha , in [facility]. Their son, CINDY, also lives with them and does all the heavy lifting. Pt's spouse has been receiving home health services for the last month and had a procedure today. Daughter, Osmin is heavily involved in daily care, doing more of the coordination and medication management. M1 PT/OT-IP Prior Functional Status Start: 07/30/20 14:26 Freq: NEEDED Status: Active Protocol: Document 07/30/20 14:27 [facility] (Rec: 07/30/20 14:48 [facility] [id number]) Medical Review Prior Functional Status Communication Pt able to state his needs. Mobility and Gait Per pt's daughter uses a FWW in the home and use of transport wc for outside and longer distances. Activities of Daily Living and IADL's Pt's daughter states pt just able to do self eating , otherwise she and her brother have to assist the pt for all needs of ADL', medications, finances, and mobility needs. Social History Household Members spouse,family Living Arrangements House Number of Floors (Floors) 3 or More Floors Number of Stairs To Enter/Railing? Pt has multi-level house and rails throughout to be able to assist pt in order to do the steps. Home Environment Standard Height Toilet Home Equipment Four Wheel Walker,Straight Cane,Manual Wheelchair,Shower Seat with Backrest,Grab Bars Near Toilet,Grab Bars In Shower M2 OT-IP Current Condition Start: 07/30/20 14:26 Freq: Status: Active Protocol: Document 07/30/20 14:27 [facility] (Rec: 07/30/20 14:48 [facility] [id number]) Occupational Therapy Current Condition Current Condition Evaluation Date 07/30/20 Treatment Diagnosis UTI Diagnosis Onset Date 07/29/20 M3 OT- IP Subjective and Pain Start: 07/30/20 14:26 Freq: Status: Active Protocol: Document 07/30/20 14:27 [facility] (Rec: 07/30/20 14:48 [facility] [id number]) OT- Subjective Occupational Therapy Visit Type Type Initial Evaluation Visit Start Time 13:52 Visit Stop Time 14:21 Total Visit Minutes 29 Occupational Therapy Visit Comments Patient Comments Pt in the bed and pt's daughter present for OT/PT eval. Patient/Caregiver Goals Pt wanting to go home. OT Pain Assessment Pain When Pain Assessed During Mobility Pain Present Pain Present Pain Reported M4 OT- IP ADL's Start: 07/30/20 14:26 Freq: Status: Active Protocol: Document 07/30/20 14:27 [facility] (Rec: 07/30/20 14:48 [facility] [id number]) OT [id number] Comments OT Self-Feeding Comments Not at meal time. OT ADL-Grooming General Evaluation Grooming Ability Minimal Assistance Comments OT Grooming Comments Pt needing DIANE to brush the back of his hair. Pt able to wash his face with wash cloth. Pt's daughter states has to assist pt to help sequence through tasks for completeness . OT ADL-Dressing Comments OT Dressing Comments Pt's daughter states have to assist for all LB dressing needs, pt needing orientation for his shirt and at times able to put the shirt on his own. OT ADL-Toileting Comments OT Toileting Comments Pt not having to use the toilet. Pt's daughter states uses the urinal mainly and usually unable to get to the toilet in time and in incontinent. OT ADL-Bathing Comments OT Bathing Comments Pt's daughter states they have just been sponging off at home as pt does not shower. Pt would benefit from a bath aide at home. Able to let case management know of pt's daughter request to have a male bath aide. M5 OT- IP IADL's Start: 07/30/20 14:26 Freq: Status: Active Protocol: Document 07/30/20 14:27 [facility] (Rec: 07/30/20 14:48 [facility] [id number]) OT-Instrumental Activities of Daily Living Deficits IADL Deficits Identified No Deficits Home Safety Awareness Awareness of Need for Assistance at Home Decreased Awareness Ability to Problem Solve Emergency Unable to Problem Solve Situations Medication Management Medication Management Caregiver Administers Money Management Money Management Caregiver Provides Assistance Meal Preparation Meal Preparation Caregiver Provides Assist Car Seat Upholsterer Car Seat Upholsterer Caregiver Provides Assist Driving Driving Concerns Identified Regarding Safety M6 OT- IP Functional Cognition Start: 07/30/20 14:26 Freq: Status: Active Protocol: Document 07/30/20 14:27 [facility] (Rec: 07/30/20 14:48 [facility] [id number]) Cognitive Factors Limiting Selfcare Function Cognitive Ability Level of Alertness Alert,Confusional State Patient Orientation Name Attention Span Ability Capable of Focused Attention, Unable to Sustain Attention Ability to Follow Commands Able to Follow One Step Commands with Increased Time, Able to Follow One Step Commands with Repetition Memory Description Immediate Impaired,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,Electronic Health Records Specialist Impaired, Working Impaired Safety Awareness Underestimates Need for Assistance Problem Solving Ability Unable to Identify Errors, Needs Assist to Identify Solutions Cognitive Comments Cognitive Assessment Comments Pt mainly just orientated to his name. Pt even forgot that his daughter was in the room. Per pt's daughter needing step by step instructions and assist for all Adl needs except for eating. Pt needing cues to use the fww and keep the fww in front of him at all times. M7 OT- IP Mobility and Balance Start: 07/30/20 14:26 Freq: Status: Active Protocol: Document 07/30/20 14:27 [facility] (Rec: 07/30/20 14:48 [facility] [id number]) OT- Bed Mobility Assessment Supine to Sit Supine to Sit Assist Minimal Assistance,Bedrails Sit to Supine Sit to Supine Assist Standby Assistance OT-Transfer Assessment Sit to and From Stand Sit to and from Stand Contact Guard Assistance Transfers Transfer Ability Contact Guard Assistance Technique Transfer Destination Bed Devices Transfer Assistive Devices Gait Belt,Front Wheeled Walker OT- Balance Assessment Sitting Balance and Reactions Static Sitting Balance Ability Good M8 OT- IP Objective Assessments Start: 07/30/20 14:26 Freq: Status: Active Protocol: Document 07/30/20 14:27 [facility] (Rec: 07/30/20 14:48 [facility] [id number]) OT Strength Comments Strength Comments Not able to formally assess, pt at least 3+/5 throughout as able to use his bue to assist to mobility needs. M9 OT- IP Assessment and Plan Start: 07/30/20 14:26 Freq: Status: Active Protocol: Document 07/30/20 14:27 [facility] (Rec: 07/30/20 14:48 [facility] [id number]) OT Summary Assessment and Plan Potential Rehabilitation Potential Fair Analytic Complexity at Evaluation Low Summary Assessment Summary Pt here for UTI and main barriers for pt are steps, decreased safety awareness, and sundowns in the afternoon per his daughter and requires more assist. Pt's daughter present for OT eval and agreed woudl like just to have Pt work with pt for mobility needs as pt's daughter and son assist pt for all ADL needs except for self feeding. Pt woudl benefit from home with 24/7 assist and home health pt and bath aid. Discharge pt from OT services. Frequency of Treatment Frequency Of Treatment Discharge Treatment Plan OT Treatment Plan Patient/Family Education, Discharge Planning Discharge Recommendations OT Discharge Recommendations Home with 24/7 Assist,Home Health
--- NOTE | 2020-07-30 14:28 | CM.DPC ---
Addendum entered by Jennifer Sevilla R.N. 07/30/20 15:03: Romy, occupational therapist indicated that family does not want O.T. Will only do P.T, and STRADDLE BUG on resumption orders. [facility] per Rigo. Original Note: DCP Cont: [facility] Updated her and let her know that patient became inpatient status, so he will need resumption orders. Asked her if patient was under STRADDLE BUG through them. Stated that she would check with their palliative care STRADDLE BUG, since his is getting this resource. She did check and stated that patient is not getting STRADDLE BUG, only P.T. She is also not sure that they can do resumption this week when patient discharges, but will check with their P.T. Let Rigo know that resumption orders will be sent, and will add STRADDLE BUG, and O.T. Patient's daughter, Osmin came by and was present during O.T. evaluation. Romy, occupational therapist indicated that patient's daughter stated that patient is at his baseline at home with his transfers. Placed application for Medicaid in patient's room, for daughter to obtain. P: DCP to continue to follow. It is uncertain if patient will be discharged today, will follow. If he does not discharge today, will continue to update [facility]. Will resume [facility] and add O.T, as well as STRADDLE BUG to current P.T. Jennifer Sevilla RN/Casing Fluid Tender
[2020-07-30] MEDS: CEFTRIAXONE 1 GM/50 ML FROZ.PIGGY IV (17:21)
--- NOTE | 2020-07-30 19:37 | PM.PN.1 ---
Subjective Subjective Date Patient Seen: 07/30/20 Interval history: Patient is a 80-year-old male with moderate to severe dementia, CAD, type 2 diabetes, chronic urinary incontinence, chronic constipation presented with complaints dizziness and abdominal pain with diagnosis of recurrent UTI. Patient has urine culture growing Gram-negative bacilli. He had bowel movement after laxative last night. Exam Vital Signs (past 8 hours): - 07/30/20 12:30 07/30/20 15:00 07/30/20 15:35 Temperature 98.6 F Pulse Rate 80 Respiratory Rate 20 Blood Pressure 161/81 H Pulse Oximetry 96 97 97 Oxygen Delivery Method Room Air Oxygen Flow Rate 0 Narrative Exam Narrative: General: Alert and cooperative Lungs: Clear to auscultation Heart: Regular rhythm Abdomen: Soft and nontender Extremities: No edema Objective Labs Result Diagrams: 07/30/20 05:16 07/30/20 05:16 Labs: Laboratory Results - last 24 hr 07/29/20 07/29/20 07/29/20 17:51 17:51 19:16 WBC RBC Hgb Hct MCV MCH MCHC RDW Plt Count Neut % (Auto) Lymph % (Auto) [place] % (Auto) Eos % (Auto) Baso % (Auto) Neut # (Auto) Lymph # (Auto) [place] # (Auto) Eos # (Auto) Baso # (Auto) Sodium Potassium Chloride Carbon Dioxide BUN Creatinine Estimated GFR BUN/Creatinine Ratio Glucose Hemoglobin A1c 7.6 H Lactate Calcium Magnesium 1.1 L Ammonia < 9 L TSH SARS-CoV-2 (PCR) 07/29/20 07/29/20 07/30/20 19:18 20:53 05:10 WBC RBC Hgb Hct MCV MCH MCHC RDW Plt Count Neut % (Auto) Lymph % (Auto) [place] % (Auto) Eos % (Auto) Baso % (Auto) Neut # (Auto) Lymph # (Auto) [place] # (Auto) Eos # (Auto) Baso # (Auto) Sodium Potassium Chloride Carbon Dioxide BUN Creatinine Estimated GFR BUN/Creatinine Ratio Glucose Hemoglobin A1c Lactate 2.1 Calcium Magnesium Ammonia TSH 3.28 SARS-CoV-2 (PCR) Negative 07/30/20 07/30/20 05:16 05:16 WBC 5.7 RBC 3.35 L Hgb 10.6 L Hct 31.2 L MCV 93.3 MCH 31.7 MCHC 34.0 RDW 13.8 Plt Count 171 Neut % (Auto) 52.9 D Lymph % (Auto) 32.8 [place] % (Auto) 12.0 Eos % (Auto) 1.9 L Baso % (Auto) 0.4 Neut # (Auto) 3000 Lymph # (Auto) 1900 [place] # (Auto) 700 Eos # (Auto) 100 Baso # (Auto) 0 Sodium 137 Potassium 3.5 Chloride 103 Carbon Dioxide 30 BUN 16 Creatinine 0.84 Estimated GFR > 60.0 BUN/Creatinine Ratio 19.0 Glucose 130 H Hemoglobin A1c Lactate Calcium 8.2 L Magnesium 1.9 Ammonia TSH SARS-CoV-2 (PCR) [facility] Medical History Atrial fibrillation CAD (coronary artery disease) Dementia Diabetes Hyperlipidemia Hypertension Urinary incontinence Surgical History History of coronary artery stent placement Social History household members: spouse and family Smoking Status: Former smoker alcohol intake: current Assessment & Plan Assessment & Plan narrative: Morro Diaz is a 80-year-old male with moderate to severe dementia, CAD, type 2 diabetes, chronic urinary incontinence, chronic constipation admitted for UTI. Acute urinary tract infection, present on admission -presented with lactic acidosis which is resolving, has history of frequent recurrent UTI for which he has had urology consultation -Urine culture growing Gram-negative bacilli, blood culture negative -continue IV ceftriaxone 1 gram daily. -consider long-term low-dose prophylactic antibiotic therapy after treatment of acute UTI -continue tamsulosin 0.4 mg b.i.d. 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 Hypomagnemesia, acute and present on admission -Mag was 1.1, received 2 g magnesium sulfate -repeat magnesium 1.9 Diabetes type 2 suboptimally controlled with an A1c of 7.6 -He will receive lantus 10 units at bedtime -Medium dose correctional scale insulin ACHS -Carb controlled diet Essential hypertension, chronic and stable -Continue home dose of amlodipine 5 mg, losartan 50 mg po daily and carvedilol 12.5 po bid CAD, chronic and stable -Continue home dose of clopidogrel 75 mg po daily Dementia, chronic and present on admission -Continue home dose of buspirone 10 mg and citalopram 20 mg po daily Hyperlipidemia, chronic and stable -Pravastatin 20 mg po at bedtime Insomnia, chronic -Continue home dose of trazodone 100 mg po at bedtime prn Weakness -PT consult Patient admitted to a hospital observation and hopefully can discharge on oral antibiotic therapy once we have urine culture sensitivities.
[2020-07-30] MEDS: PRAVASTATIN 20 MG TABLET PO (20:24)
[2020-07-30] MEDS: TAMSULOSIN 0.4 MG CAPSULE PO (20:24)
[2020-07-30] MEDS: SENNOSIDES 8.6 MG TABLET 17.2 MG PO (20:25)
[2020-07-31 01:36] VITALS: O2SAT 98
[2020-07-31 07:57] VITALS: BP 141/86; PULSE 79; RESP 16; TEMP 36.6; O2SAT 97
[2020-07-31 08:00] VITALS: O2SAT 97
[2020-07-31 10:06] VITALS: BP 141/86
[2020-07-31] MEDS: carvediloL 12.5 MG TABLET PO (10:06)
[2020-07-31] MEDS: ENOXAPARIN 40 MG/0.4 ML SYRINGE SUBCUT (10:06)
[2020-07-31 10:07] VITALS: BP 141/86
[2020-07-31] MEDS: TAMSULOSIN 0.4 MG CAPSULE PO (10:07)
[2020-07-31] MEDS: LOSARTAN 50 MG TABLET PO (10:07)
[2020-07-31] MEDS: CLOPIDOGREL 75 MG TABLET PO (10:07)
[2020-07-31] MEDS: AMLODIPINE 5 MG TABLET PO (10:07)
[2020-07-31] MEDS: CITALOPRAM 10 MG TABLET 20 MG PO (10:07)
[2020-07-31] MEDS: BUSPIRONE 5 MG TABLET 10 MG PO (10:07)
--- NOTE | 2020-07-31 11:20 | PT.IPTN ---
Current Diagnoses Urinary tract infection, site not specified (07/29/20) Physical Therapy Treatment Note M2 PT-IP Current Condition Start: 07/30/20 10:29 Freq: NEEDED Status: Active Protocol: Document 07/30/20 14:19 AW (Rec: 07/30/20 14:31 AW [id number]) Physical Therapy Current Condition Current Condition Evaluation Date 07/30/20 Treatment Diagnosis AMS, UTI, weakness, impaired gait and mobility Onset Date one month M3 PT-IP Subjective Start: 07/30/20 10:29 Freq: NEEDED Status: Active Protocol: Document 07/31/20 10:55 SP (Rec: 07/31/20 12:24 SP [id number]) Subjective Physical Therapy Visit Type Type Treatment Note Visit Start Time 10:55 Visit Stop Time 11:20 Total Visit Minutes 35 Notes RICHStefanie No attended tx and assisted with w/c follow and mgt when needed. DRILL HAND noted pt didn't have any pants to provide him during ambulation due to c/o of being cold, left message for daughter to bring a pair when comes in later to assist for DC. Number of DRILL HAND Visits 1 Physical Therapy Visit Comments Patient Comments Pt was alert and willing to work with therapy. Pt commented he was very cold throughout tx. Therapy Pain Assessment Pain Present Pain Present Denied Pain M4 PT-IP Mobility and Gait Start: 07/30/20 10:29 Freq: NEEDED Status: Active Protocol: Document 07/31/20 10:55 SP (Rec: 07/31/20 12:24 SP [id number]) PT-Bed Mobility Assessment Supine to Sit Supine to Sit Contact Guard Assistance,1 Person Assistance Sit to Supine Sit to Supine Standby Assistance Scooting Scooting to Edge of Bed Standby Assistance PT-Transfer Assessment Sit to and From Stand Sit to and from Stand Contact Guard Assistance,1 Person Assistance,Use of Upper Extremities Equipment Transfer Assistive Device Gait Belt,Front Wheeled Walker Orthotic/Prosthetic Devices or Brace: No Transfers Transfer Destination Bed,Wheelchair Transfer Technique Pt ambulated using fWW Transfer Ability Level of Assist Contact Guard Assistance Comments Mobility Comments DRILL HAND arrived previously to pt's room to answer his call light and noted pt sitting at EOB, TAX ASSOCIATE ATTORNEY unavailable. Sit>stand CGA and provided fWW, pt ambulated bed to toilet aprox 8 ft CGA and cued for safety SP front toilet with repositioing FWW fully then stand> sit onto toilet usign grab bar, required assist for brief mgt. TAX ASSOCIATE ATTORNEY arrived to assist pt further before DRILL HAND left room. When DRILL HAND returned to room approx 15 min later pt was reclined in bed when arrived. sup>sit CGA with noted effort BUE support to right trunk to sitting, scoot sBA. SIt>stand CGA with cuing for pushing from the bed to stand, pt walked further into hallway approx 40 ft (w/c follow by SPTA) before tiring and required seated rest into w/c, cued for reaching back for slow descent into w/c. DRILL HAND wheeled pt to stairs. Sit> stand CGA using FWW, ascend/ descend 3x2 stairs BHR as has at home. then ambulated approx 30 ft w/c follow CGA using FWW. Seated in w/c and wheeled back to room. Pt sit>stand then walked back tobed approx 5 ft cued complete full pivot w/ FWW CGA and reaching back prior to sit. Sit>supine with cuing for centering in bed for safety. Alarmed bed and had all needs and call light in reach. Pt requested to be shown how to turn off tv, completed and educated buttons [employer] member device for further use with verbal awareness. Gait Assessment Gait Gait Assistance Required: Contact Guard Assist Distance (Feet) 40 Able to Maintain Weight Bearing Status Yes During Gait Assistive Devices Assistive Device Gait Belt,Front Wheeled Walker Orthotic/Prosthetic Devices or Brace: No Gait Deviations General Gait Pattern Antalgic,Decreased Stride Length,Decreased Feet Clearance,Flexed Trunk,Narrow Based Gait Factors Limiting Gait Function Factors Limiting Gait Function Decreased Activity Tolerance, Decreased Strength,Difficulty Following Directions,Limited Range of Motion,Poor Balance, Poor Safety Awareness Comments Gait Comments See mobility comments for details. Stair Climbing Assessment Evaluation Level of Assist On Stairs Contact Guard Assistance,1 Person Assistance Devices Stair Climbing Assistive Devices Left Railing,Right Railing Technique/Endurance Stair Climbing Direction Ascend and Descend Stair Climbing Technique Step Over Step,Step to Step Number of Steps Climbed 3 Stair Climbing Set # Repetitions (reps) 2 Comments Stair Climbing Comments Step to gait 1st 3 stairs, step over step 2nd set using BHR CGA. PT-Balance Assessment Sitting Balance and Reactions Static Sitting Balance Ability Good Dynamic Sitting Balance Ability Fair Standing Balance and Reactions Static Standing Balance Ability Fair Dynamic Standing Balance Ability Poor Device Used FWW M5 PT-IP Objective Assessments Start: 07/30/20 10:29 Freq: NEEDED Status: Active Protocol: Document 07/30/20 14:19 AW (Rec: 07/30/20 14:41 AW [id number]) Orientation Orientation/Cognition Level of Alertness Confusional State Orientation Name,Place Safety Awareness Decreased Safety Awareness Memory Description 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,Pipe Layer Impaired Gross Range of Motion Lower Extremity ROM Assessment Bilaterally Impaired Strength Lower Extremity Strength Assessment Bilaterally Impaired Hip 3+/5 Knee 3+/5 M6 PT-IP Treatment Start: 07/30/20 10:29 Freq: NEEDED Status: Active Protocol: Document 07/31/20 10:55 SP (Rec: 07/31/20 12:24 SP [id number]) Physical Therapy Treatment Education Education Provided Safety M7 PT-IP Assessment and Plan Start: 07/30/20 10:29 Freq: NEEDED Status: Active Protocol: Document 07/31/20 10:55 SP (Rec: 07/31/20 12:24 SP [id number]) PT Summary Assessment and Plan Potential Rehabilitation Potential Fair Status of Condition at Evaluation Stable Summary Impairments Pain,ROM,Strength,Balance, Cognition,Bed Mobility, Transfers,Gait Assessment Summary Pt requires assist with all ADL's at baseline and is modified indpedent for household mobility using a FWW . He has a transport wheelchair for appointments. He reportedly sundowns after ~ 1630 daily. His daughter and son coordinate his care, providing nearly 24/ care. Pt required CGA for bed mobiltiy ,transfers and ambulation with FWW. Pt was recently discharged from home health PT services but would benefit from new orders to continue to address safety at home in the context of multiple recent falls. Pt is ok to return home with family to assist him / when medically cleared. Goals Bed Mobility Goal Standby Assistance Transfer Goal Standby Assistance,Front Wheeled Walker Gait Goal Standby Assistance,Front Wheel Walker Gait Distance 50 Other Goals - up/down 5 steps with B rails SBA Frequency of Treatment Frequency Of Treatment Once a Day Treatment Plan Physical Therapy Treatment Plan Bed Mobility Training,Transfer Training,Gait Training, Therapeutic Exercise,Balance Retraining,Discharge Planning, Hot or Cold Pack,Neuromuscular Re-ed Other Recommendations and Next Treatment progress gait training with Focus FWW; stairs as tolerated Recommendations To Nursing Amount of Assist Needed 1 Person Assist Discharge Recommendations PT Discharge Recommendations Home with 08/02 Assist,Home Health Transportation Needs at Discharge Private Vehicle
[2020-07-31] MEDS: INSULIN ASPART 100 UNIT/ML INSULN PEN SUBCUT (13:04)
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
--- NOTE | 2020-07-31 13:53 | PC.NURSE ---
Pt's daughter Xenia is present and assisting Pt with dressing for discharge. IV has been removed. Went over d/c instructions with Daughter, discussed d/c meds, time of last dose, reviewed stroke education, reminded Pt's daughter (pt has dementia) to encourage Pt to drink plenty of fluids to prevent constipation or dehydration and help to resolve his UTI. Daughter also reminded to make sure that Pt takes his entire dose of abx as prescribed and then when Pt follows up with PCP to consider half-way low dose abx to prevent UTI's going forward. Daughter denies further question and Pt will be taken out via w/c by SHIPPING CLERK/ADMIN to daughter's POV with all belongings.
--- NOTE | 2020-07-31 15:26 | CM.DPC ---
DCP Discharge Home Resume HH Per MD, pt is medically stable to d/c home today with Resume [facility] on [facility] and phones and faxes are not working therefore d/c summary and Resume orders with added POLYSOMNOGRAPH TECH and [employer] if male staff becomes available will be faxed by OTILIO Velasquez tomorrow 08/01/20. Per RN, Dtr was bedside for d/c instructions and Dtr provided transport home with no concerns at this time. Plan: Patient to d/c home via Dtr POV and Resume [facility] PT/POLYSOMNOGRAPH TECH/possible [employer]. [employer]
--- NOTE | 2020-08-01 09:06 | CM.DPNOTE ---
Faxed order and DC summary per Yudi to [facility]A per Yudi on 08/01/20 and received fax confirmation. Eva Schulte CM Asst.
== END 2020-07-31 14:06 | disposition home health service (06) | DRG 689 ==
LOC: ED 20:25 → AC 07-30 07:41
PROVIDERS: Emergency Medicine; Admitting Provider Nurse Practitioner Family; Emergency Provider Emergency Medicine; PCP Internal Medicine; Visit Provider Nurse Practitioner Family
DX: N39.0 Urinary tract infection, site not specified (principal); G93.41 Metabolic encephalopathy; E87.2 Acidosis; F03.91 Unspecified dementia, unspecified severity, with behavioral disturbance; E83.42 Hypomagnesemia; I25.10 Atherosclerotic heart disease of native coronary artery without angina pectoris; E11.9 Type 2 diabetes mellitus without complications; I10 Essential (primary) hypertension; E78.5 Hyperlipidemia, unspecified; Z79.4 Long term (current) use of insulin; G47.00 Insomnia, unspecified; N40.1 Benign prostatic hyperplasia with lower urinary tract symptoms; R33.9 Retention of urine, unspecified; Z66 Do not resuscitate; Z20.822 Contact with and (suspected) exposure to COVID-19; Z87.891 Personal history of nicotine dependence
CPT/HCPCS: 36415; 70450; 74177; 80048; 80053; 80320; 81003; 81015; 82140; 82962; 83036; 83605; 83690; 83735; 84145; 84443; 85025; 85610; 85730; 87040; 87077; 87086; 87186; 87635; 93005; 93010; 96361; 96365; 96375; 97116; 97162; 97165; 97530; 99282; C9803; J1650; J2060; J3475; Q9967

== ENCOUNTER 2020-09-21 08:06 | Inpatient (IN) | payer MEDICARE, OTHER, SELFPAY ==
[2020-07-29 21:54] VITALS: BMI 28.8
[2020-09-21] VITALS (27 sets, daily range): BP systolic 136–200; BP diastolic 76–102; PULSE 84–155; RESP 12–29; TEMP 36.2–37.1; O2SAT 94–99; BMI 26.9
--- NOTE | 2020-09-21 08:12 | DI.RAD.S_ITS ---
PROCEDURE: XR CHEST 1V INDICATIONS: weakness TECHNIQUE: One view of the chest was acquired. COMPARISON: [facility], , CHEST 1 VIEW, 01/13/2017, 22:54. FINDINGS: Surgical changes and devices: Multilevel cervical fusion hardware. Lungs and pleura: Lungs are clear. No pleural effusions or pneumothorax. Mediastinum: Mediastinal contours appear normal. Heart size is normal. Bones and chest wall: No suspicious bony lesions. Overlying soft tissues appear unremarkable. Severe bilateral glenohumeral joint degenerative arthritis. Chronic right rotator cuff tear. IMPRESSION: No evidence acute pulmonary process. Dictated by: Roverto Chun M.D. on 09/21/2020 at 8:36 Approved by: Roverto Chun M.D. on 09/21/2020 at 8:37
--- NOTE | 2020-09-21 08:12 | DI.CT.S_ITS ---
PROCEDURE: CT ABDOMEN PELVIS W CON INDICATIONS: distention TECHNIQUE: After the administration of intravenous contrast, 5 mm thick sections acquired from the diaphragm to the symphysis. 5 mm coronal and sagittal reformats were acquired. For radiation dose reduction, the following was used: automated exposure control, adjustment of mA and/or kV according to patient size. COMPARISON: [facility], CT, CT ABDOMEN PELVIS W CON, 07/29/2020, 18:46. FINDINGS: Image quality: Excellent. ABDOMEN: Lung bases: Lung bases are clear. Heart size is normal. Diffuse coronary artery calcifications. Small hiatal hernia. Solid organs: Liver is normal in size and enhancement. Gallbladder is unremarkable.. Biliary system is non dilated. Pancreas enhances normally. Spleen is normal in size and enhancement. Small right adrenal adenoma. 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 Kidneys demonstrate normal size and enhancement, without hydronephrosis. Peritoneum and bowel: Bowel loops demonstrate normal wall thickness and caliber. No free fluid or air. Nodes and vessels: No retroperitoneal or mesenteric adenopathy by size criteria. Aorta and inferior vena cava are normal in size. Extensive atherosclerotic calcifications. Miscellaneous: No ventral hernias. PELVIS: Genitourinary: Prostate is enlarged. Extensive prostate calcifications. Mild diffuse bladder wall thickening. Miscellaneous: No inguinal hernias or adenopathy. Bones: No suspicious bony lesions. No vertebral body compression fractures. Remote right hemilaminectomy L3 and L4. Chronic destructive process at L4-L5 with vacuum disc, disc space widening, and erosions of subjacent endplates. This is a chronic process. Acute discitis is very unlikely to be present secondary to the presence of air within the disc open (acute process would have fluid present and not air). There is severe canal stenosis at this level, which is somewhat decompressed by previous hemilaminectomy. There is severe left lateral recess stenosis secondary to facet hypertrophy. There is severe canal stenosis posterior to L5. There is a probable free disc fragment impinging on the right L4 nerve root far laterally. IMPRESSION: 1. Coronary artery disease. 2. Diffuse atherosclerosis. 3. No evidence of acute abdominal process. 4. Chronic bladder wall thickening. 5. Chronic destructive process at the L4-L5 disc. The presence of a vacuum disc argues against acute discitis/osteomyelitis. There may have been previous discitis/osteomyelitis. 6. Severe canal stenosis at L4-L5 and posterior to the L5 vertebra. 7. Question interval development of a large far lateral disc fragment at L4-L5 impinging on the right L4 nerve root. Dictated by: Roverto Chun M.D. on 09/21/2020 at 9:12 Approved by: Roverto Chun M.D. on 09/21/2020 at 9:26
--- NOTE | 2020-09-21 08:14 | DI.CT.S_ITS ---
PROCEDURE: CT HEAD/BRAIN WO CON INDICATIONS: weakness TECHNIQUE: Noncontrast 4.5 mm thick angled axial sections acquired from the foramen magnum to the vertex, with coronal and sagittal reformats. For radiation dose reduction, the following was used: automated exposure control, adjustment of mA and/or kV according to patient size. COMPARISON: [facility], CT, CT HEAD/BRAIN WO CON, 06/12/2020, 20:32. [facility], CT, CT HEAD/BRAIN WO CON, 07/29/2020, 18:46. FINDINGS: Image quality: Excellent. CSF spaces: Basal cisterns are patent. No extra-axial fluid collections. Stable diffuse mild ventriculomegaly. Brain: No intracranial bleeds or masses. There is cerebral volume loss for age, with resultant ventricular and sulcal prominence. There are mild periventricular and deep white matter chronic small vessel ischemic changes. Old small right thalamic lacunar infarction. There is intracranial internal carotid artery atherosclerosis. Skull and face: Calvarium and visualized facial bones appear intact, without suspicious lesions. Sinuses: Visualized sinuses and mastoids are clear. IMPRESSION: 1. Stable findings, including mild ventriculomegaly, volume loss, and small vessel ischemic change. 2. No evidence acute stroke, hemorrhage, mass. Dictated by: Roverto Chun M.D. on 09/21/2020 at 9:09 Approved by: Roverto Chun M.D. on 09/21/2020 at 9:11
--- NOTE | 2020-09-21 08:17 | ED_ITS ---
HPI - Altered Mental Status General Chief Complaint: Weakness Stated Complaint: general weakness/ ? UTI Time Seen by Provider: 09/21/20 08:11 Source: EMS Mode of arrival: EMS Limitations: altered mental status History of Present Illness HPI narrative: Patient is a 80-year-old male with history of dementia, atrial fi brillation, coronary artery disease UTI presenting with increasing weakness over the past few days. His states that he has become so weak she put him to bed last night and was afraid he would not wake up. He is currently asking for food he denies any chest pain palpitations shortness of breath nausea vomiting or abdominal pain. His abdomen is noted to be quite distended he apparently has not had a bowel movement for about 10 days. MD complaint: weakness Related Data Home Medications Medication Instructions Recorded Confirmed buspirone 10 tab PO BID PRN 03/07/18 09/21/20 carvedilol 12.5 tab PO BID 03/07/18 09/21/20 citalopram 20 mg PO DAILY 03/07/18 09/21/20 clopidogrel 75 mg PO DAILY 03/07/18 09/21/20 insulin glargine 10 units SUB-Q QPM 03/07/18 09/21/20 pravastatin 20 mg PO QPM 03/07/18 09/21/20 amlodipine 5 mg PO DAILY 12/28/19 09/21/20 losartan 50 mg PO DAILY 12/28/19 09/21/20 metformin 1,000 mg PO BIDAC 12/28/19 09/21/20 tamsulosin 0.4 mg PO BID 12/28/19 09/21/20 cephalexin 250 mg PO DAILY 09/21/20 09/21/20 hydrocodone-acetaminophen 1 tab PO PRN PRN 09/21/20 09/21/20 polyethylene glycol 3350 [Miralax] 17 g PO DAILY 09/21/20 09/21/20 quetiapine 25 mg PO BEDTIME 09/21/20 09/21/20 trospium 20 mg PO BID 09/21/20 09/21/20 Allergies Allergy/AdvReac Type Severity Reaction Status Date / Time Sulfa (Sulfonamide Allergy Mild CHILDHOOD Verified 09/21/20 08:19 Antibiotics) REACTION Review of Systems Review of Systems ROS Unobtainable: All systems reviewed & are unremarkable except as noted in HPI and below Constitutional Constitutional: Denies chills, Denies fever(s), Reports frequent falls, Reports lethargy and Reports weakness Eyes Eyes: Denies change in vision, Denies eye discharge, Denies irritation and Denies loss of vision ENT Ears, Nose, Mouth, and Throat: Denies change in voice, Denies neck pain and Denies sore throat Cardiovascular Cardiovascular: Denies chest pain, Denies irregular heart rhythm, Denies lightheadedness, Denies palpitations, Denies dyspnea, Denies dyspnea on exertion and Denies orthopnea Respiratory Respiratory: Denies cough, Denies dyspnea, Denies dyspnea on exertion and Denies wheezing Gastrointestinal Gastrointestinal: Reports as per HPI Musculoskeletal Musculoskeletal: Denies arthralgias, Denies back pain and Denies neck pain Integumentary/Breasts Skin/Breast: Denies pruritus, Denies erythema, Denies rash and Denies wounds Neurologic Neurologic: Reports frequent falls, Denies loss of vision and Reports weakness Endocrine Endocrine: Denies palpitations Allergic/Immunologic Allergic/Immunologic: Denies wheezing Patient History Medical History Atrial fibrillation CAD (coronary artery disease) Dementia Diabetes Hyperlipidemia Hypertension Urinary incontinence Surgical History History of coronary artery stent placement Social History household members: spouse and family Smoking Status: Former smoker alcohol intake: former Smoking Status: Former smoker alcohol intake frequency: 0-2 drinks per day Substance Use Type: marijuana Exam Initial Vital Signs Initial Vital Signs: Vital Signs Temperature 98.8 F 09/21/20 08:06 Pulse Rate 101 H 09/21/20 08:06 Respiratory Rate 12 09/21/20 08:06 Blood Pressure 200/99 H 09/21/20 08:06 Pulse Oximetry 98 09/21/20 08:06 GENERAL: Alert pleasantly demented 80-year-old male and in no acute distress. HEENT: Head atraumatic,EOMI, pupils reactive, face symmetric, dry mucous membranes CARDIOVASCULAR: Regular rate and rhythm without murmurs, rubs or gallops. RESPIRATORY: Breath sounds equal bilaterally, no wheezes rales or rhonchi. ABDOMEN: Soft, nontender. Normoactive bowel sounds all 4 quadrants. No guarding or rebound. EXTREMITIES: Normal range of motion, no clubbing or edema. Neurovascularly intact NEUROLOGICAL: Alert and oriented person. 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 Course Orders Ordered: ED Orders 09/21/20 08:12 CT abdomen pelvis w con Stat XR chest 1V Stat 09/21/20 08:13 EKG-12 Lead Stat 09/21/20 08:14 CT head/brain wo con Stat 09/21/20 08:22 COVID19 Stat Complete Blood Count AUTO DIFF Stat Comprehensive Metabolic Panel Stat Lactate (Lactic Acid) Stat Lipase Stat Magnesium Stat Partial Thromboplastin Time Stat Procalcitonin Stat Prothrombin Time INR Stat Troponin & CK Cardiac Panel Stat 09/21/20 08:52 Blood Culture Stat 09/21/20 08:53 Urinalysis and Microscopic Stat Acetaminophen (Acetaminophen 325 Mg Tablet) 650 mg PO Q6HR PRN PRN Reason: Fever/Mild Pain (1-3) Al Hydrox/Mg Hydrox/Simethicone (Mag Hydrox/Alum/Simeth 30 Ml Udc) 30 ml PO Q6HR PRN PRN Reason: Dyspepsia Docusate Sodium (Docusate 100 Mg Capsule) 100 mg PO BID SARINA Heparin Sodium (Porcine) (Heparin 5,000 Unit/Ml Vial) 5,000 unit SUBCUT BID SARINA Magnesium Hydroxide (Magnesium Hydroxide 30 Ml Udc) 30 ml PO DAILY PRN PRN Reason: Constipation Naloxone HCl (Naloxone 0.4 Mg/Ml Vial) 0.2 mg IV Q2MIN PRN PRN Reason: Opiate Reversal Promethazine HCl (Promethazine 12.5 Mg Supp) 12.5 mg MN Q6HR PRN PRN Reason: Nausea And Vomiting Discontinued Medications Diltiazem HCl (Diltiazem 5 Mg/Ml Sdv) 10 mg IV NOW ONE Stop: 09/21/20 10:30 Last Admin: 09/21/20 10:46 Dose: 10 mg Documented by: PIETER Vital Signs Vital signs: Vital Signs - 8 hr 09/21/20 09:00 09/21/20 09:31 09/21/20 09:45 Pulse Rate 97 H 101 H 108 H Respiratory Rate 12 19 Blood Pressure 163/82 H Pulse Oximetry 95 98 97 09/21/20 10:00 09/21/20 10:10 09/21/20 10:13 Pulse Rate 104 H 109 H 109 H Respiratory Rate 21 16 20 Blood Pressure 189/89 H 164/88 H Pulse Oximetry 98 96 09/21/20 10:15 09/21/20 10:18 09/21/20 10:25 Pulse Rate 117 H 122 H 155 H Respiratory Rate 29 H 29 H 17 Blood Pressure 143/76 H 159/102 H Pulse Oximetry 99 09/21/20 10:30 09/21/20 10:48 09/21/20 10:49 Pulse Rate 135 H 118 H 113 H Respiratory Rate 18 17 16 Blood Pressure 168/92 H 162/94 H Pulse Oximetry 96 09/21/20 11:00 09/21/20 11:15 09/21/20 11:30 Pulse Rate 102 H 100 H 95 H Respiratory Rate 21 20 22 Blood Pressure 151/84 H 151/83 H Pulse Oximetry 94 94 94 MDM - Altered Mental Status Lab Data Attestation: I reviewed the patient's lab results. Result diagrams: 09/21/20 08:22 09/21/20 08:22 Labs: Lab Results 09/21/20 09/21/20 09/21/20 Range/Units 08:22 08:22 08:22 WBC 6.8 (4.5-11.0) X10^3/uL RBC 3.96 L (4.5-5.9) X10^6/uL Hgb 12.6 L (13.5-17.5) g/dL Hct 36.6 L (41-53) % MCV 92.2 (80-100) fL MCH 31.8 (26-34) PG MCHC 34.5 (30-36) % RDW 14.0 (11.6-14.8) % Plt Count 199 (150-400) X10^3/uL Neut % (Auto) 69.5 (50-75) % Lymph % (Auto) 19.7 L (25-40) % [place] % (Auto) 9.6 (3-14) % Eos % (Auto) 0.7 L (2-4) % Baso % (Auto) 0.5 (0-2) % Neut # (Auto) 4700 (5998-5674) /uL Lymph # (Auto) 1300 (7670-2900) /uL [place] # (Auto) 700 (0-900) /uL Eos # (Auto) 0 (0-450) /uL Baso # (Auto) 0 (0-100) /uL PT 13.8 H (10.1-12.7) SECONDS INR 1.2 (0.9-1.3) APTT (26.4-36.2) SECONDS Sodium (137-145) mmol/L Potassium (3.4-5.1) mmol/L Chloride (98-107) mmol/L Carbon Dioxide (22-32) mmol/L BUN (9-20) mg/dL Creatinine (0.66-1.25) mg/dL Estimated GFR (>60) mL/min BUN/Creatinine Ratio (6-22) Glucose (80-110) mg/dL Lactate (0.7-2.1) mmol/L Calcium (8.4-10.2) mg/dL Magnesium (1.6-2.3) mg/dL Total Bilirubin (0.2-1.3) mg/dL AST (17-59) IU/L ALT (<50) IU/L Alkaline Phosphatase (38-126) U/L Total Creatine Kinase (55-170) U/L CK-MB (CK-2) CK-MB (CK-2) Rel Index Troponin I (0.01-0.034) ng/mL Total Protein (6.3-8.2) g/dL Albumin (3.5-5.0) g/dL Globulin (1.7-4.1) g/dL Albumin/Globulin Ratio (1.0-2.8) Lipase 17 L (23-300) U/L Procalcitonin (<0.5) ng/mL Urine Color Urine Appearance Urine pH (4.5-8.0) Ur Specific [place] (1.000-1.035) Urine Protein (Negative) Urine Glucose (UA) (Negative) g/dL Urine Ketones (NEGATIVE) Urine Occult Blood (Negative) Urine Nitrate (Negative) Urine Bilirubin (NEGATIVE) Urine Urobilinogen (0.2) E.U./dL Ur Leukocyte Esterase (NEGATIVE) Urine RBC (0-5/HPF) Urine WBC (0-5/HPF) Urine Bacteria (None) Ur Culture Indicated? Micro UA Comment SARS-CoV-2 (PCR) (Negative) 09/21/20 09/21/20 09/21/20 Range/Units 08:22 08:22 08:22 WBC (4.5-11.0) X10^3/uL RBC (4.5-5.9) X10^6/uL Hgb (13.5-17.5) g/dL Hct (41-53) % MCV (80-100) fL MCH (26-34) PG MCHC (30-36) % RDW (11.6-14.8) % Plt Count (150-400) X10^3/uL Neut % (Auto) (50-75) % Lymph % (Auto) (25-40) % [place] % (Auto) (3-14) % Eos % (Auto) (2-4) % Baso % (Auto) (0-2) % Neut # (Auto) (9620-7509) /uL Lymph # (Auto) (1840-4324) /uL [place] # (Auto) (0-900) /uL Eos # (Auto) (0-450) /uL Baso # (Auto) (0-100) /uL PT (10.1-12.7) SECONDS INR (0.9-1.3) APTT 33 (26.4-36.2) SECONDS Sodium 135 L (137-145) mmol/L Potassium 3.9 (3.4-5.1) mmol/L Chloride 101 (98-107) mmol/L Carbon Dioxide 27 (22-32) mmol/L BUN 16 (9-20) mg/dL Creatinine 0.70 (0.66-1.25) mg/dL Estimated GFR > 60.0 (>60) mL/min BUN/Creatinine Ratio 22.9 H (6-22) Glucose 207 H (80-110) mg/dL Lactate 1.2 (0.7-2.1) mmol/L Calcium 8.9 (8.4-10.2) mg/dL Magnesium (1.6-2.3) mg/dL Total Bilirubin 0.7 (0.2-1.3) mg/dL AST 27 (17-59) IU/L ALT 11 (<50) IU/L Alkaline Phosphatase 100 (38-126) U/L Total Creatine Kinase 69 (55-170) U/L CK-MB (CK-2) TNP CK-MB (CK-2) Rel Index TNP Troponin I 0.014 (0.01-0.034) ng/mL Total Protein 6.8 (6.3-8.2) g/dL Albumin 3.8 (3.5-5.0) g/dL Globulin 3.0 (1.7-4.1) g/dL Albumin/Globulin Ratio 1.3 (1.0-2.8) Lipase (23-300) U/L Procalcitonin < 0.03 (<0.5) ng/mL Urine Color Urine Appearance Urine pH (4.5-8.0) Ur Specific [place] (1.000-1.035) Urine Protein (Negative) Urine Glucose (UA) (Negative) g/dL Urine Ketones (NEGATIVE) Urine Occult Blood (Negative) Urine Nitrate (Negative) Urine Bilirubin (NEGATIVE) Urine Urobilinogen (0.2) E.U./dL Ur Leukocyte Esterase (NEGATIVE) Urine RBC (0-5/HPF) Urine WBC (0-5/HPF) Urine Bacteria (None) Ur Culture Indicated? Micro UA Comment SARS-CoV-2 (PCR) (Negative) 09/21/20 09/21/20 09/21/20 Range/Units 08:22 08:22 08:53 WBC (4.5-11.0) X10^3/uL RBC (4.5-5.9) X10^6/uL Hgb (13.5-17.5) g/dL Hct (41-53) % MCV (80-100) fL MCH (26-34) PG MCHC (30-36) % RDW (11.6-14.8) % Plt Count (150-400) X10^3/uL Neut % (Auto) (50-75) % Lymph % (Auto) (25-40) % [place] % (Auto) (3-14) % Eos % (Auto) (2-4) % Baso % (Auto) (0-2) % Neut # (Auto) (7785-0156) /uL Lymph # (Auto) (3786-8537) /uL [place] # (Auto) (0-900) /uL Eos # (Auto) (0-450) /uL Baso # (Auto) (0-100) /uL PT (10.1-12.7) SECONDS INR (0.9-1.3) APTT (26.4-36.2) SECONDS Sodium (137-145) mmol/L Potassium (3.4-5.1) mmol/L Chloride (98-107) mmol/L Carbon Dioxide (22-32) mmol/L BUN (9-20) mg/dL Creatinine (0.66-1.25) mg/dL Estimated GFR (>60) mL/min BUN/Creatinine Ratio (6-22) Glucose (80-110) mg/dL Lactate (0.7-2.1) mmol/L Calcium (8.4-10.2) mg/dL Magnesium 1.1 L (1.6-2.3) mg/dL Total Bilirubin (0.2-1.3) mg/dL AST (17-59) IU/L ALT (<50) IU/L Alkaline Phosphatase (38-126) U/L Total Creatine Kinase (55-170) U/L CK-MB (CK-2) CK-MB (CK-2) Rel Index Troponin I (0.01-0.034) ng/mL Total Protein (6.3-8.2) g/dL Albumin (3.5-5.0) g/dL Globulin (1.7-4.1) g/dL Albumin/Globulin Ratio (1.0-2.8) Lipase (23-300) U/L Procalcitonin (<0.5) ng/mL Urine Color Yellow Urine Appearance Clear Urine pH 7.5 (4.5-8.0) Ur Specific [place] 1.020 (1.000-1.035) Urine Protein Trace H (Negative) Urine Glucose (UA) 1+ H (Negative) g/dL Urine Ketones 1+ H (NEGATIVE) Urine Occult Blood Negative (Negative) Urine Nitrate Negative (Negative) Urine Bilirubin Negative (NEGATIVE) Urine Urobilinogen 0.2 (0.2) E.U./dL Ur Leukocyte Esterase Negative (NEGATIVE) Urine RBC None seen (0-5/HPF) Urine WBC None seen (0-5/HPF) Urine Bacteria None seen (None) Ur Culture Indicated? Cult not indicated Micro UA Comment Microscopic normal SARS-CoV-2 (PCR) Negative (Negative) Point of Care Testing Glucose POC 196 Imaging Data Chest x-ray: Radiologist's Impression: PROCEDURE: XR CHEST 1V INDICATIONS: weakness TECHNIQUE: One view of the chest was acquired. COMPARISON: [facility], CR, CHEST 1 VIEW, 01/13/2017, 22:54. FINDINGS: Surgical changes and devices: Multilevel cervical fusion hardware. Lungs and pleura: Lungs are clear. No pleural effusions or pneumothorax. Mediastinum: Mediastinal contours appear normal. Heart size is normal. Bones and chest wall: No suspicious bony lesions. Overlying soft tissues appear unremarkable. Severe bilateral glenohumeral joint degenerative arthritis. Chronic right rotator cuff tear. IMPRESSION: No evidence acute pulmonary process. Dictated by: Roverto Chun M.D. on 09/21/2020 at 8:[address] scan - abdomen/pelvis: Radiologist's Impression: PROCEDURE: CT ABDOMEN PELVIS W CON INDICATIONS: distention TECHNIQUE: After the administration of intravenous contrast, 5 mm thick sections acquired from the diaphragm to the symphysis. 5 mm coronal and sagittal reformats were acquired. For radiation dose reduction, the following was used: automated exposure control, adjustment of mA and/or kV according to patient size. COMPARISON: [facility], CT, CT ABDOMEN PELVIS W CON, 07/29/2020, 18:46. FINDINGS: Image quality: Excellent. ABDOMEN: Lung bases: Lung bases are clear. Heart size is normal. Diffuse coronary artery calcifications. Small hiatal hernia. Solid organs: Liver is normal in size and enhancement. Gallbladder is unremarkable.. Biliary system is non dilated. Pancreas enhances normally. Spleen is normal in size and enhancement. Small right adrenal adenoma. 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 Kidneys demonstrate normal size and enhancement, without hydronep hrosis. Peritoneum and bowel: Bowel loops demonstrate normal wall thickness and caliber. No free fluid or air. Nodes and vessels: No retroperitoneal or mesenteric adenopathy by size criteria. Aorta and inferior vena cava are normal in size. Extensive atherosclerotic calcifications. Miscellaneous: No ventral hernias. PELVIS: Genitourinary: Prostate is enlarged. Extensive prostate calcifications. Mild diffuse bladder wall thickening. Miscellaneous: No inguinal hernias or adenopathy. Bones: No suspicious bony lesions. No vertebral body compression fractures. Remote right hemilaminectomy L3 and L4. Chronic destructive process at L4-L5 with vacuum disc, disc space widening, and erosions of subjacent endplates. This is a chronic process. Acute discitis is very unlikely to be present secondary to the presence of air within the disc open (acute process would have fluid present and not air). There is severe canal stenosis at this level, which is somewhat decompressed by previous hemilaminectomy. There is severe left lateral recess stenosis secondary to facet hypertrophy. There is severe canal stenosis posterior to L5. There is a probable free disc fragment impinging on the right L4 nerve root far laterally. IMPRESSION: 1. Coronary artery disease. 2. Diffuse atherosclerosis. 3. No evidence of acute abdominal process. 4. Chronic bladder wall thickening. 5. Chronic destructive process at the L4-L5 disc. The presence of a vacuum disc argues against acute discitis/osteomyelitis. There may have been previous discitis/osteomyelitis. 6. Severe canal stenosis at L4-L5 and posterior to the L5 vertebra. 7. Question interval development of a large far lateral disc fragment at L4-L5 impinging on the right L4 nerve root. Dictated by: Roverto Chun M.D. on 09/21/2020 at 9:12 Approved by: Roverto Chun M.D. on 09/21/2020 at 9: CT scan - head: Radiologist's Impression: PROCEDURE: CT HEAD/BRAIN WO CON INDICATIONS: weakness TECHNIQUE: Noncontrast 4.5 mm thick angled axial sections acquired from the foramen magnum to the vertex, with coronal and sagittal reformats. For radiation dose reduction, the following was used: automated exposure control, adjustment of mA and/or kV according to patient size. COMPARISON: [facility], CT, CT HEAD/BRAIN WO CON, 06/12/2020, 20:32. [facility], CT, CT HEAD/BRAIN WO CON, 07/29/2020, 18:46. FINDINGS: Image quality: Excellent. CSF spaces: Basal cisterns are patent. No extra-axial fluid collections. Stable diffuse mild ventriculomegaly. Brain: No intracranial bleeds or masses. There is cerebral volume loss for age, with resultant ventricular and sulcal prominence. There are mild periventricular and deep white matter chronic small vessel ischemic changes. Old small right thalamic lacunar infarction. There is intracranial internal carotid artery atherosclerosis. Skull and face: Calvarium and visualized facial bones appear intact, without suspicious lesions. Sinuses: Visualized sinuses and mastoids are clear. IMPRESSION: 1. Stable findings, including mild ventriculomegaly, volume loss, and small vessel ischemic change. 2. No evidence acute stroke, hemorrhage, mass. Dictated by: Roverto Chun M.D. on 09/21/2020 at 9:09 ECG Data Attestation: I personally reviewed and interpreted this ECG as follows: Prior ECG tracings: available for review Interpretation: Sinus rhythm rate 100 slight artifact noted no ST changes MDM Narrative Medical decision making narrative: The patient has had episodes of AFib with RVR with heart rate 140-150. He is given 1 dose of 10 mg Cardizem. This seems to have controlled his heart rate who. X-rays CT scan and blood work are overall reassuring no infection it is found. Canal stenosis at L4-L5 along with interval development of a large far lateral disc fragment at L4-L5 impinging on the right L4 nerve root. This may be contributing to his problem. I have contacted the he states that he does have severe back pain she is not sure if it has gotten worse but he is complaining of that. He is not complaining of back pain here. He is definitely a 2 person assist. states that he is not able to go home in this condition Dr. Ware happily accepts for observation Discharge Plan Departure Patient Disposition: Admitted as Observation Clinical Impression: Weakness of both lower extremities, Atrial fibrillation Admit Date/Time: 09/21/20 11:36 Admit Provider: Glenn Ware
[2020-09-21 08:42] LABS: Add Manual Diff / Slide Review NO; Basophils Absolute Auto 0 /uL (0-100); Basophils Percent Auto 0.5 % (0-2); Eosinophils Absolute Auto 0 /uL (0-450); Eosinophils Percent Auto 0.7 % (2-4); Hematocrit 36.6 % (41-53); Hemoglobin 12.6 g/dL (13.5-17.5); Lymphocytes Absolute Auto 1300 /uL (1100-4500); Lymphocytes Percent Auto 19.7 % (25-40); Mean Corpuscular HGB Conc 34.5 % (30-36); Mean Corpuscular Hemoglobin 31.8 PG (26-34); Mean Corpuscular Volume 92.2 fL (80-100); Monocytes Absolute Auto 700 /uL (0-900); Monocytes Percent Auto 9.6 % (3-14); Neutrophils Absolute Auto 4700 /uL (1500-7000); Neutrophils Percent Auto 69.5 % (50-75); Platelet Count 199 X10^3/uL (150-400); Red Blood Cell Count 3.96 X10^6/uL (4.5-5.9); White Blood Cell Count 6.8 X10^3/uL (4.5-11.0)
[2020-09-21 08:58] LABS: INR 1.2 (0.9-1.3); Prothrombin Time 13.8 SECONDS (10.1-12.7)
[2020-09-21 09:03] LABS: Lactate (Lactic Acid) 1.2 mmol/L (0.7-2.1); Lipase 17 U/L (23-300)
[2020-09-21 09:04] LABS: Alanine Aminotransferase 11 IU/L (<50); Albumin 3.8 g/dL (3.5-5.0); Albumin Globulin Ratio 1.3 (1.0-2.8); Alkaline Phosphatase 100 U/L (38-126); Aspartate Aminotransferase 27 IU/L (17-59); BUN Creatinine Ratio 22.9 (6-22); Bilirubin Total 0.7 mg/dL (0.2-1.3); Blood Urea Nitrogen 16 mg/dL (9-20); Calcium 8.9 mg/dL (8.4-10.2); Carbon Dioxide 27 mmol/L (22-32); Chloride 101 mmol/L (98-107); Creatine Kinase 69 U/L (55-170); Estimated Glomerular Filt Rate > 60.0 mL/min (>60); Glucose 207 mg/dL (80-110); HEMOLYSIS < 15 (0-50); Potassium 3.9 mmol/L (3.4-5.1); Sodium 135 mmol/L (137-145); Total Protein 6.8 g/dL (6.3-8.2)
[2020-09-21 09:05] LABS: Magnesium 1.1 mg/dL (1.6-2.3); PTT Partial Thromboplastin Tim 33 SECONDS (26.4-36.2)
[2020-09-21 09:15] LABS: COVID19 -Nasal RAPID Negative (Negative)
[2020-09-21 09:16] LABS: Troponin I 0.014 ng/mL (0.01-0.034)
[2020-09-21 09:21] LABS: Procalcitonin < 0.03 ng/mL (<0.5)
[2020-09-21 09:37] LABS: Appearance Urine UA CLEAR; Bacteria Urine None Seen; Bilirubin Urine UA NEGATIVE (NEGATIVE); Color Urine UA YELLOW; Glucose Urine UA 1+ g/dL (Negative); Ketones Urine UA 1+ (NEGATIVE); Leukocyte Esterase Urine UA NEGATIVE (NEGATIVE); Nitrite Urine UA NEGATIVE (Negative); Occult Blood Urine UA NEGATIVE (Negative); Protein Urine UA TRACE (Negative); RBC Urine None Seen (0-5/HPF); Urobilinogen Urine UA 0.2 E.U./dL (0.2); WBC Urine None Seen (0-5/HPF); pH Urine UA 7.5 (4.5-8.0)
[2020-09-21 09:42] LABS: Culture Indicated Urine Cult Not Indicated; Urine Comments Microscopic Normal
[2020-09-21] MEDS: dilTIAZem 5 MG/ML SDV 10 MG IV (10:46)
--- NOTE | 2020-09-21 11:43 | PC.NURSE ---
son tian [phone] [place] [phone]
--- NOTE | 2020-09-21 13:30 | PT.IIE ---
Surgical History (Last Reviewed 09/21/20 @ 08:24 by Vianey Brice DO) History of coronary artery stent placement Medical History (Last Reviewed 09/21/20 @ 08:24 by Vianey Brice DO) Atrial fibrillation CAD (coronary artery disease) Dementia Diabetes Hyperlipidemia Hypertension Urinary incontinence Physical Therapy Inpatient Evaluation/Re-Eval M1 PT/OT-IP Prior Functional Status Start: 09/21/20 14:11 Freq: NEEDED Status: Active Protocol: Document 09/21/20 13:30 AB (Rec: 09/21/20 14:25 AB [id number]) Medical Review Prior Functional Status Medical History Reviewed Yes Communication able to make needs known Social History Household Members spouse,family Living Arrangements House Number of Floors (Floors) 3 or More Floors Number of Stairs To Enter/Railing? 5 steps B rails to enter 4 steps B rails to living room 4 steps B rails to bedroom Home Environment Standard Height Toilet Home Equipment Four Wheel Walker,Shower Seat with Backrest,Grab Bars Near Toilet,Grab Bars In Shower M2 PT-IP Current Condition Start: 09/21/20 14:11 Freq: NEEDED Status: Active Protocol: Document 09/21/20 13:30 AB (Rec: 09/21/20 14:25 AB [email or web address]) Physical Therapy Current Condition Current Condition Evaluation Date 09/21/20 Treatment Diagnosis A-fib; weakness; difficulty in walking Onset Date 09/21/20 Precautions Other Precautions Falls M3 PT-IP Subjective Start: 09/21/20 14:11 Freq: NEEDED Status: Active Protocol: Document 09/21/20 13:30 AB (Rec: 09/21/20 14:25 AB [email or web address]) Subjective Physical Therapy Visit Type Type Initial Evaluation Visit Start Time 13:30 Visit Stop Time 13:49 Total Visit Minutes 19 Number of SUPERINTENDENT [employer]ATCH[employer] Visits 0 Physical Therapy Visit Comments Patient Comments pt agreed to do PT Therapy Pain Assessment Pain Present Pain Present Denied Pain M4 PT-IP Mobility and Gait Start: 09/21/20 14:11 Freq: NEEDED Status: Active Protocol: Document 09/21/20 13:30 AB (Rec: 09/21/20 14:25 AB [id number]) PT-Bed Mobility Assessment Supine to Sit Supine to Sit Maximum Assistance PT-Transfer Assessment Sit to and From Stand Sit to and from Stand Moderate Assistance,1 Person Assistance,Use of Upper Extremities Equipment Transfer Assistive Device Gait Belt,Front Wheeled Walker Orthotic/Prosthetic Devices or Brace: No Transfers Transfer Destination Toilet Transfer Technique ambulated using FWW Transfer Ability Level of Assist Moderate Assistance,1 Person Assistance,Use of Upper Extremities Comments Mobility Comments completed supine to sit max A and max cues. pt was able to sit on EOB CGA. pt is impulsive and has decrease memory affecting safety awareness. pt completed sit to stand mod A and cues. ambulated towards the toilet using FWW mod A. presents with antalgic gait. has increase bilateral genu varum R>L affecting stability. pt had to stop walking while walking to the toilet with c/o dizziness. Bp checked: 134/ 73 [place] 153. nurse came in to info that HR is up on telemetry. pt rested on the chair and stated that dizziness dissipated. ambulated towards the toilet again using FWW mod A. required max cues with all tasks. pt can get agitated easily. completed ambulation from the toilet to the chair using FWW mod a. positioned pt on the chair. left pt with OT. Gait Assessment Gait Gait Assistance Required: Moderate Assistance Distance (Feet) 20 Able to Maintain Weight Bearing Status Yes During Gait Assistive Devices Assistive Device Gait Belt,Front Wheeled Walker Orthotic/Prosthetic Devices or Brace: No Gait Deviations General Gait Pattern Antalgic,Decreased Stride Length,Decreased Feet Clearance Factors Limiting Gait Function Factors Limiting Gait Function Decreased Activity Tolerance, Decreased Strength,Difficulty Following Directions,Poor Balance,Poor Safety Awareness PT-Balance Assessment Sitting Balance and Reactions Static Sitting Balance Ability Good Dynamic Sitting Balance Ability Fair Standing Balance and Reactions Static Standing Balance Ability Fair Dynamic Standing Balance Ability Poor Device Used FWW M5 PT-IP Objective Assessments Start: 09/21/20 14:11 Freq: NEEDED Status: Active Protocol: Document 09/21/20 13:30 AB (Rec: 09/21/20 14:25 AB [id number]) Orientation Orientation/Cognition Level of Alertness Confusional State Orientation Name,Place Language Function Ability Hard of Hearing Safety Awareness Decreased Safety Awareness Memory Description 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,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 Gross Range of Motion Lower Extremity ROM Assessment Within Functional Limits Strength Lower Extremity Strength Hip 4-/5 Knee 3+/5 Muscle Tone Muscle Tone WNL Yes M6 PT-IP Treatment Start: 09/21/20 14:11 Freq: NEEDED Status: Active Protocol: Document 09/21/20 13:30 AB (Rec: 09/21/20 14:25 AB [id number]) Physical Therapy Treatment Education Education Provided Safety M7 PT-IP Assessment and Plan Start: 09/21/20 14:11 Freq: NEEDED Status: Active Protocol: Document 09/21/20 13:30 AB (Rec: 09/21/20 14:25 AB [id number]) PT Summary Assessment and Plan Potential Rehabilitation Potential Good Status of Condition at Evaluation Evolving Summary Impairments Pain,ROM,Strength,Balance, Coordination,Sensation,Tone, Cognition,Bed Mobility, Transfers,Gait,Activity Tolerance Assessment Summary pt requiring mod A with mobility and max cues due to decrease safety awareness. per previous admission's EMR, family assists pt at home. pt may go home if family can provide necessary assistance to pt and pt will require HHPT . Goals Bed Mobility Goal Standby Assistance Transfer Goal Standby Assistance,Front Wheeled Walker,Four Wheeled Walker Gait Goal Standby Assistance,Front Wheel Walker,Four Wheel Walker Gait Distance 150 Other Goals up/down 5 steps B rail sSBA Days to Meet Goals 5 Frequency of Treatment Frequency Of Treatment Once a Day Treatment Plan Physical Therapy Treatment Plan Bed Mobility Training,Transfer Training,Gait Training, Therapeutic Exercise,Balance Retraining,Discharge Planning, Hot or Cold Pack,Neuromuscular Re-ed,Coordination Retraining Precautions Other Precautions falls Recommendations To Nursing Amount of Assist Needed 1 Person Assist Discharge Recommendations PT Discharge Recommendations Home with 08/02 Assist Available,Home Health Transportation Needs at Discharge Private Vehicle
--- NOTE | 2020-09-21 13:56 | OT.IP.EVAL ---
Past Medical History (Last Reviewed 09/21/20 @ 08:24 by Vianey Brice DO) Atrial fibrillation CAD (coronary artery disease) Dementia Diabetes Hyperlipidemia Hypertension Urinary incontinence Surgical History (Last Reviewed 09/21/20 @ 08:24 by Vianey Brice DO) History of coronary artery stent placement Occupational Therapy Inpatient Evaluation/Re-Eval M1 PT/OT-IP Prior Functional Status Start: 09/21/20 14:11 Freq: NEEDED Status: Active Protocol: Document 09/21/20 16:02 CGR (Rec: 09/21/20 16:13 CGR [id number]) Medical Review Prior Functional Status Medical History Reviewed Yes Communication able to make needs known Mobility and Gait Per chart: Pt ambulated with a FWW around the house and a transport w/c for mobility outside of the house. Activities of Daily Living and IADL's Per chart: Pt was assisted with all ADLs, does not take shower and refuses bath aids Prior Functional Level (Other details) Per chart: Pt lives with his , son and daughter. Pt's son assists with all physical assistance and son and daughter help with ADLs. Pt sundowns at about 1600 and is most awake and coherent between 1030 and 1630. Social History Household Members spouse,family Living Arrangements House Number of Floors (Floors) 3 or More Floors Number of Stairs To Enter/Railing? 5 steps B rails to enter 4 steps B rails to living room 4 steps B rails to bedroom Home Environment Standard Height Toilet Home Equipment Four Wheel Walker,Shower Seat with Backrest,Grab Bars Near Toilet,Grab Bars In Shower Employment Status Retired M2 OT-IP Current Condition Start: 09/21/20 16:02 Freq: Status: Active Protocol: Document 09/21/20 16:02 CGR (Rec: 09/21/20 16:13 CGR [id number]) Occupational Therapy Current Condition Current Condition Evaluation Date 09/21/20 Treatment Diagnosis generalized weakness, afib with RVR Diagnosis Onset Date 09/21/20 M3 OT- IP Subjective and Pain Start: 09/21/20 16:02 Freq: Status: Active Protocol: Document 09/21/20 16:02 CGR (Rec: 09/21/20 16:13 CGR [id number]) OT- Subjective Occupational Therapy Visit Type Type Initial Evaluation Visit Start Time 13:31 Visit Stop Time 13:56 Total Visit Minutes 25 Notes Partial co-treat with P.T. Occupational Therapy Visit Comments Patient Comments I need to go to the bathroom OT Pain Assessment Pain When Pain Assessed At Rest Pain Present Pain Present Denied Pain M4 OT- IP ADL's Start: 09/21/20 16:02 Freq: Status: Active Protocol: Document 09/21/20 16:02 CGR (Rec: 09/21/20 16:13 CGR [id number]) OT [id number] Comments OT Self-Feeding Comments Not meal time OT ADL-Grooming Comments OT Grooming Comments Pt declined OT ADL-Oral Care Comments Oral Care Comments Pt declined OT ADL-Dressing General Eval Lower Body Dressing Ability Total Assistance Areas Needing Assistance Socks OT ADL-Toileting General Evaluation Toileting Ability Standby Assistance Comments OT Toileting Comments Pt attemtped to have BM but was unable. OT ADL-Bathing Comments OT Bathing Comments Not performed M5 OT- IP IADL's Start: 09/21/20 16:02 Freq: Status: Active Protocol: Document 09/21/20 16:02 CGR (Rec: 09/21/20 16:13 CGR [id number]) OT-Instrumental Activities of Daily Living Deficits IADL Deficits Identified Deficits Home Safety Awareness Awareness of Need for Assistance at Home Decreased Awareness Ability to Problem Solve Emergency Unable to Problem Solve Situations Medication Management Medication Management Caregiver Administers Money Management Money Management Caregiver Provides Assistance Meal Preparation Meal Preparation Caregiver Provides Assist Surgical Product Sales Consultant Surgical Product Sales Consultant Caregiver Provides Assist Driving Driving Comments Pt does not drive. M6 OT- IP Functional Cognition Start: 09/21/20 16:02 Freq: Status: Active Protocol: Document 09/21/20 16:02 CGR (Rec: 09/21/20 16:13 CGR [id number]) Cognitive Factors Limiting Selfcare Function Cognitive Ability Level of Alertness Alert,Confusional State Patient Orientation Name,Place Attention Span Ability Capable of Focused Attention, Capable of Sustained Attention Ability to Follow Commands Able to Follow One Step Commands with Increased Time, Able to Follow One Step Commands with Repetition Memory Description Immediate Impaired,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,Working Impaired Cognitive Comments Cognitive Assessment Comments Pt demonstrates poor short term memory, requesting to go to the toilet minutes after he returned to chair from toilet . OT- Vision and Hearing OT- Hearing Assessment OT- Hearing Assessment Hearing Impaired OT- Vision Assessment Vision Assessment Comments Pt was unable to follow commands for vision testing. Noted no glasses in room. M7 OT- IP Mobility and Balance Start: 09/21/20 16:02 Freq: Status: Active Protocol: Document 09/21/20 16:02 CGR (Rec: 09/21/20 16:13 CGR [id number]) OT- Bed Mobility Assessment Supine to Sit Supine to Sit Assist Maximum Assistance,1 Person Assistance Scooting Scooting to Edge of Bed Maximum Assistance,1 Person Assistance OT-Transfer Assessment Sit to and From Stand Sit to and from Stand Minimal Assistance,Moderate Assistance Transfers Transfer Ability Minimal Assistance,Moderate Assistance Technique Transfer Destination Bed,Chair,Toilet Transfer Technique Stand Step Pivot Devices Transfer Assistive Devices Gait Belt,Front Wheeled Walker OT- Balance Assessment Sitting Balance and Reactions Static Sitting Balance Ability Good Dynamic Sitting Balance Ability Fair M8 OT- IP Objective Assessments Start: 09/21/20 16:02 Freq: Status: Active Protocol: Document 09/21/20 16:02 CGR (Rec: 09/21/20 16:13 CGR [id number]) OT Gross Range of Motion Upper Extremity Range of Motion Assessment Within Functional Limits OT Strength Upper Extremity Strength Assessment Within Functional Limits Comments Strength Comments 4/5 OT- Coordination Assessment Upper Extremity Finger to Nose Test Within Functional Limits Finger Tapping Test Within Functional Limits OT-Muscle Tone Assessment Muscle Tone WNL Yes OT Sensation Assessment Edema Edema Absent M9 OT- IP Assessment and Plan Start: 09/21/20 16:02 Freq: Status: Active Protocol: Document 09/21/20 16:02 CGR (Rec: 09/21/20 16:13 CGR [id number]) OT Summary Assessment and Plan Potential Rehabilitation Potential Fair Analytic Complexity at Evaluation Low Summary OT Impairments Balance,Functional Cognition, Functional Mobility,Grooming, Dressing,Toileting,Bathing, Toilet Transfers,Shower Transfers,Activity Tolerance Progress Towards Goals Slow Progress due to Cognition Assessment Summary Pt presents as a low complexity evaluation s/p admit for generalized weakness . Pt's baseline per chart states that he requires assist for most mobility and ADLs. Pt is likely close to his baseline and will be appropriate for discharge home when medically stable. However , pt will benefit from continued therapy services while hospitalized to increased strength and endurance. Noted HR of 160 with mobility during todays session. Goals Self-Feeding Goal Independent Grooming Goal Independent Dressing Goal Independent Toileting Goal Independent Bathing Goal Independent Toilet Transfer Goal Independent Shower Transfer Goal Independent Days to Meet Goals 20 Frequency of Treatment Frequency Of Treatment Once a Day Treatment Plan OT Treatment Plan ADL Training,Functional Cognition Training,Functional Mobility,Patient/Family Education,Discharge Planning Other Treatment Recommendations and Next ADLs at sink Treatment Focus Discharge Recommendations OT Discharge Recommendations Home with 24/7 Assist Available Home Equipment Needs TBD Transportation Needs at Discharge Private Vehicle
--- NOTE | 2020-09-21 15:33 | PC.NURSE ---
Patient yelled out for help many times while I was trying to give pass down. The patients wants to keep getting up to go to the bathroom because he is constipated. I brought him to the toilet and he was not able to have a BM so he said he wanted to go back to bed. Two minutes after I got him settle he started yelling to get up again. Bed alarm was set each time but patient moves quickly and has gotten to the edge of the bed twice now. we continue to remind him that he is being helped and that he cant get up alone because we do not want him to fall.
--- NOTE | 2020-09-21 15:53 | PC.NURSE ---
Shift note: Pt alert to name, , and situation only. Hx of falls and is impulsive, frequently exiting the bed with c/o needing to urinate or have BM. On tele, HR tachy which increases with ambulation, at rest is 94 BPM and regular. Baseline has dementia per 's report but not on medications for specifically. Does not call appropriately, call light education given again, in reach and patient is in a view room. Coordinator notified of patient's impulsivity. At this time appears to be resting comfortably.
[2020-09-21] MEDS: TAMSULOSIN 0.4 MG CAPSULE PO (21:00)
[2020-09-21] MEDS: DOCUSATE 100 MG CAPSULE PO (21:00)
[2020-09-21] MEDS: carvediloL 12.5 MG TABLET PO (21:00)
[2020-09-21] MEDS: HEPARIN 5,000 UNIT/ML VIAL 5000 UNIT SUBCUT (21:00)
[2020-09-21] MEDS: QUETIAPINE 25 MG TABLET PO (21:00)
[2020-09-22] VITALS (7 sets, daily range): BP systolic 147–182; BP diastolic 73–91; PULSE 77–96; RESP 14–20; TEMP 36.3–36.8; O2SAT 95–99
[2020-09-22] MEDS: MAGNESIUM SULFATE 2 GM/50 ML PIGGYBACK IV (00:48)
[2020-09-22 06:40] LABS: Hematocrit 35.3 % (41-53)
[2020-09-22 06:41] LABS: BUN Creatinine Ratio 26.8 (6-22); Blood Urea Nitrogen 19 mg/dL (9-20); Calcium 8.7 mg/dL (8.4-10.2); Carbon Dioxide 25 mmol/L (22-32); Chloride 102 mmol/L (98-107); Estimated Glomerular Filt Rate > 60.0 mL/min (>60); Glucose 208 mg/dL (80-110); HEMOLYSIS < 15 (0-50); Magnesium 1.6 mg/dL (1.6-2.3); Potassium 3.4 mmol/L (3.4-5.1); Sodium 136 mmol/L (137-145)
[2020-09-22 07:00] LABS: Hemoglobin A1C% w Est Avg Glu 6.6 % (4.0-6.0)
[2020-09-22] MEDS: MAGNESIUM HYDROXIDE 30 ML UDC PO (07:02)
--- NOTE | 2020-09-22 07:02 | PC.NURSE ---
pt became restless around 0600, asking to go to the bathroom and the aid helped the pt to the commode and pt was not able to have a bm. Nurse offered MofMag and pt was agreeable, pt drank milk of mag prn with jackson weems at 0700.
[2020-09-22 07:04] LABS: Amylase < 30 U/L (30-110)
[2020-09-22] MEDS: INSULIN ASPART 100 UNIT/ML INSULN PEN SUBCUT ×3 (08:30→16:30)
[2020-09-22] MEDS: HEPARIN 5,000 UNIT/ML VIAL 5000 UNIT SUBCUT ×2 (08:33→20:54)
[2020-09-22] MEDS: polyethylene glycoL 3350 17 GM POWD.PACK PO (08:33)
[2020-09-22] MEDS: LOSARTAN 50 MG TABLET PO (08:34)
[2020-09-22] MEDS: carvediloL 12.5 MG TABLET PO ×2 (08:34→20:54)
[2020-09-22] MEDS: AMLODIPINE 5 MG TABLET PO (08:34)
[2020-09-22] MEDS: CITALOPRAM 10 MG TABLET 20 MG PO (08:34)
[2020-09-22] MEDS: CLOPIDOGREL 75 MG TABLET PO (08:34)
[2020-09-22] MEDS: TAMSULOSIN 0.4 MG CAPSULE PO ×2 (08:34→20:54)
[2020-09-22] MEDS: DOCUSATE 100 MG CAPSULE PO ×2 (08:35→20:54)
--- NOTE | 2020-09-22 10:33 | P.HP_ITS ---
History of Present Illness History of Present Illness Date Patient Seen: 09/21/20 Chief complaint: general weakness/ ? UTI Narrative: History was obtained from as patient was unable to give history. Patient is a 80-year-old male with dementia of atrial fibrillation, CAD, DM 2, HTN presented to the ED with weakness. states that it has been difficult for the patient to walk even with assistance of his walker. She states that prior to a couple of days ago he could walk up 4 stairs and could walk with his walker. Then 1 day prior to admission while walking with his walker he had a fall. When he fell there was no complaints of dizziness lightheadedness chest pain palpitation. He did not hit his head and did not you lose consciousness. He was assisted up by the and his 52-year-old son who lives with them. She states that recently he has developed shortness of breath and fatigue when walking. Because of this he will stop during his ambulation to catch his breath and then start again. The denied patient expressing problems with a door apnea, PND. She mentions that his appetite has significantly decreased and he has lost weight. She states that he may eat a small amount of breakfast and lunch but now does not eat any dinner. She states that he was a big burley dannie and now he is very thin. She states that his weight loss has occurred over the past several months. She states that he was just in the hospital few months ago for sepsis. After his discharge he states that over the past couple months as when he is ventricularly gone down hill and has been noticeable problems with his weakness and poor appetite. In reviewing his EM are it is revealed that he was discharged 07/31/2020 Then with his weakness and difficulty ambulating he was brought to the hospital for further evaluation Patient History Medical History Atrial fibrillation CAD (coronary artery disease) Dementia Diabetes Hyperlipidemia Hypertension Urinary incontinence Surgical History History of coronary artery stent placement Family & Social History Social History: household members spouse,family Prior Living Arrangements House Safety & Behavioral: Feels Safe in Current Yes Environment Been Physically Hurt or No Threatened By a Person Suicidal Ideation Description None Suicide Plan Description No Plan Tobacco & Substance use: Smoking Status Former smoker alcohol intake former alcohol intake frequency 0-2 drinks per day Substance Use Type marijuana Meds Home Medications and Allergies Home Medications Medication Instructions Recorded Confirmed Type buspirone 10 tab PO BID PRN 03/07/18 09/21/20 History carvedilol 12.5 tab PO BID 03/07/18 09/21/20 History citalopram 20 mg PO DAILY 03/07/18 09/21/20 History clopidogrel 75 mg PO DAILY 03/07/18 09/21/20 History insulin glargine 10 units SUB-Q QPM 03/07/18 09/21/20 History pravastatin 20 mg PO QPM 03/07/18 09/21/20 History amlodipine 5 mg PO DAILY 12/28/19 09/21/20 History losartan 50 mg PO DAILY 12/28/19 09/21/20 History metformin 1,000 mg PO BIDAC 12/28/19 09/21/20 History tamsulosin 0.4 mg PO BID 12/28/19 09/21/20 History cephalexin 250 mg PO DAILY 09/21/20 09/21/20 History hydrocodone-acetaminophen 1 tab PO PRN PRN 09/21/20 09/21/20 History polyethylene glycol 3350 [Miralax] 17 g PO DAILY 09/21/20 09/21/20 History quetiapine 25 mg PO BEDTIME 09/21/20 09/21/20 History trospium 20 mg PO BID 09/21/20 09/21/20 History Allergies Allergy/AdvReac Type Severity Reaction Status Date / Time Sulfa (Sulfonamide Allergy Mild CHILDHOOD Verified 09/21/20 08:19 Antibiotics) REACTION Review of Systems Review of Systems ROS: Yes unobtainable due to mental status Exam Vital Signs (past 8 hours): - 09/22/20 03:05 09/22/20 07:10 09/22/20 08:34 Temperature 97.7 F 97.6 F Pulse Rate 79 87 87 Respiratory Rate 14 20 Blood Pressure 149/81 H 158/86 H 158/86 H Pulse Oximetry 97 97 Oxygen Delivery Method Room Air Oxygen Flow Rate 0 Narrative Exam Narrative: Constitutional: elderly frail cachectic male in no acute distress HEENT: Normocephalic atraumatic extraocular movements intact pupils are equal round reactive fundi were not visualized sclera and conjunctiva were clear oropharynx is clear with moist mucous membranes Neck: Supple without thyromegaly bruits jugular venous distention Respiratory: Clear to auscultation Cardiovascular: Regular rhythm S1-S2 was normal the renal issues rubs murmurs gallops present GI: Benign bowel sounds present : No Perez present Musculoskeletal: Muscle atrophy, no edema clubbing cyanosis Neurologic: Cranial nerves 2-12 grossly intact. Motor equal active. He was able to squeeze examiner's hand with 5/4 strength he was able to lift his legs o ff the bed without any difficulty. Centering crude touch intact Psychological: Awake alert oriented to person. Mood appropriate. Objective Labs Result Diagrams: 09/22/20 06:10 09/22/20 06:10 Labs: Laboratory Results - last 24 hr 09/22/20 09/22/20 09/22/20 06:10 06:10 06:10 Hgb 12.0 L Hct 35.3 L Sodium 136 L Potassium 3.4 Chloride 102 Carbon Dioxide 25 BUN 19 Creatinine 0.71 Estimated GFR > 60.0 BUN/Creatinine Ratio 26.8 H Glucose 208 H Hemoglobin A1c 6.6 H Calcium 8.7 Magnesium 1.6 Amylase < 30 L Imaging Data Chest x-ray: Radiologist's Impression: PROCEDURE: XR CHEST 1V INDICATIONS: weakness TECHNIQUE: One view of the chest was acquired. COMPARISON: [facility], , CHEST 1 VIEW, 01/13/2017, 22:54. FINDINGS: Surgical changes and devices: Multilevel cervical fusion hardware. Lungs and pleura: Lungs are clear. No pleural effusions or pneumothorax. Mediastinum: Mediastinal contours appear normal. Heart size is normal. Bones and chest wall: No suspicious bony lesions. Overlying soft tissues appear unremarkable. Severe bilateral glenohumeral joint degenerative arthritis. Tube Turner dylan right rotator cuff tear. IMPRESSION: No evidence acute pulmonary process. Dictated by: Roverto Chun M.D. on 09/21/2020 at 8:[address] scan - abdomen/pelvis: Radiologist's Impression: PROCEDURE: CT ABDOMEN PELVIS W CON INDICATIONS: distention TECHNIQUE: After the administration of intravenous contrast, 5 mm thick sections acquired from the diaphragm to the symphysis. 5 mm coronal and sagittal reformats were acquired. For radiation dose reduction, the following was used: automated exposure control, adjustment of mA and/or kV according to patient size. COMPARISON: [facility], CT, CT ABDOMEN PELVIS W CON, 07/29/2020, 18:46. FINDINGS: Image quality: Excellent. ABDOMEN: Lung bases: Lung bases are clear. Heart size is normal. Diffuse coronary artery calcifications. Small hiatal hernia. Solid organs: Liver is normal in size and enhancement. Gallbladder is unremarkable.. Biliary system is non dilated. Pancreas enhances normally. Spleen is normal in size and enhancement. Small right adrenal adenoma. 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 Kidneys demonstrate normal size and enhancement, without hydronephrosis. Peritoneum and bowel: Bowel loops demonstrate normal wall thickness and caliber. No free fluid or air. Nodes and vessels: No retroperitoneal or mesenteric adenopathy by size criteria. Aorta and inferior vena cava are normal in size. Extensive atherosclerotic calcifications. Miscellaneous: No ventral hernias. PELVIS: Genitourinary: Prostate is enlarged. Extensive prostate calcifications. Mild diffuse bladder wall thickening. Miscellaneous: No inguinal hernias or adenopathy. Bones: No suspicious bony lesions. No vertebral body compression fractures. Remote right hemilaminectomy L3 and L4. Chronic destructive process at L4-L5 with vacuum disc, disc space widening, and erosions of subjacent endplates. This is a chronic process. Acute discitis is very unlikely to be present secondary to the presence of air within the disc open (acute process would have fluid present and not air). There is severe canal stenosis at this level, which is somewhat decompressed by previous hemilaminectomy. There is severe left lateral recess stenosis secondary to facet hypertrophy. There is severe canal stenosis posterior to L5. There is a probable free disc fragment impinging on the right L4 nerve root far laterally. IMPRESSION: 1. Coronary artery disease. 2. Diffuse atherosclerosis. 3. No evidence of acute abdominal process. 4. Chronic bladder wall thickening. 5. Chronic destructive process at the L4-L5 disc. The presence of a vacuum disc argues against acute discitis/osteomyelitis. There may have been previous discitis/osteomyelitis. 6. Severe canal stenosis at L4-L5 and posterior to the L5 vertebra. 7. Question interval development of a large far lateral disc fragment at L4-L5 impinging on the right L4 nerve root. Dictated by: Roverto Chun M.D. on 09/21/2020 at 9:12 Approved by: Roverto Chun M.D. on 09/21/2020 at 9: CT scan - head: Radiologist's Impression: PROCEDURE: CT HEAD/BRAIN WO CON INDICATIONS: weakness TECHNIQUE: Noncontrast 4.5 mm thick angled axial sections acquired from the foramen magnum to the vertex, with coronal and sagittal reformats. For radiation dose reduction, the following was used: automated exposure control, adjustment of mA and/or kV according to patient size. COMPARISON: [facility], CT, CT HEAD/BRAIN WO CON, 06/12/2020, 20:32. [facility], CT, CT HEAD/BRAIN WO CON, 07/29/2020, 18:46. FINDINGS: Image quality: Excellent. CSF spaces: Basal cisterns are patent. No extra-axial fluid collections. Stable diffuse mild ventriculomegaly. Brain: No intracranial bleeds or masses. There is cerebral volume loss for age, with resultant ventricular and sulcal prominence. There are mild periventricular and deep white matter chronic small vessel ischemic changes. Old small right thalamic lacunar infarction. There is intracranial internal carotid artery atherosclerosis. Skull and face: Calvarium and visualized facial bones appear intact, without suspicious lesions. Sinuses: Visualized sinuses and mastoids are clear. IMPRESSION: 1. Stable findings, including mild ventriculomegaly, volume loss, and small vessel ischemic change. 2. No evidence acute stroke, hemorrhage, mass. Dictated by: Roverto Chun M.D. on 09/21/2020 at 9:09 ECG Data Attestation: I personally reviewed and interpreted this ECG as follows: Prior ECG tracings: available for review Interpretation: Sinus rhythm rate [address] no [address] changes Assessment & Plan Assessment & Plan narrative: Patient is a 80-year-old male with multiple cor morbidities consisting of dementia, CAD, DM 2, HTN, atrial fib now in sinus rhythm who presents with progressive weakness, debility and falls, anorexia, marked weight loss Weakness/debility/falls I suspect that this is due to progression of his dementia. CT head did not reveal any new acute findings such as stroke, hemorrhage, mass. His CT abdomen pelvis did reveal severe canal stenosis at L4-L5 and there was a fragment at L4- L5 impinging on the right L4 nerve root. However this would not explain his generalized weakness and general and therefore do not feel that this is playing a part in his symptomatology. On this admission there was nothing to suggest the UTI. His UA was negative for wbc's or bacteria being seen. His WBC normal at 6.8 and he was afebrile. Chest x-ray did not show any infiltrate. Therefore there is no source of infection at this time to explain his symptoms either Blood cultures to be drawn and followed Check B12, TSH and cortisol PT/OT to see Anorexia/weight loss Is possible there could be an undiagnosed malignancy however he has had CT of his abdomen and pelvis as well as chest x-ray and there is no noted change that would be referable to malignancy. There is nothing to suggest thyroid disorder. His EKG shows normal sinus rhythm. If he did have hyperthyroidism and would be apathetic hyperthyroidism. Will not check tumor markers as patient's x-rays and scans do not reveal any changes suggestive of malignancy. Also his CBC is not suggestive of a hematologic malignancy. Will check his TSH Will start Remeron for appetite Atrial fibrillation Present EKG reveals patient is in normal sinus rhythm Continue his home carvedilol HTN Continue on home carvedilol, amlodipine, losartan DM2 Place on diabetic diet Check hemoglobin A1c Continue Lantus and add SSI Quality VTE Deep Vein Thrombosis/Pulmonary Embolism Present on Admission: No
--- NOTE | 2020-09-22 10:42 | OT.IP.TRT ---
Occupational Therapy Treatment Note M2 OT-IP Current Condition Start: 09/21/20 16:02 Freq: Status: Active Protocol: Document 09/21/20 16:02 CGR (Rec: 09/21/20 16:13 CGR [id number]) Occupational Therapy Current Condition Current Condition Evaluation Date 09/21/20 Treatment Diagnosis generalized weakness, afib with RVR Diagnosis Onset Date 09/21/20 M3 OT- IP Subjective and Pain Start: 09/21/20 16:02 Freq: Status: Active Protocol: Document 09/22/20 11:06 CGR (Rec: 09/22/20 11:13 CGR [id number]) OT- Subjective Occupational Therapy Visit Type Type Progress Note Visit Start Time 10:19 Visit Stop Time 10:42 Total Visit Minutes 23 Notes Pt requesting to get up to toilet OT Pain Assessment Pain When Pain Assessed At Rest Pain Present Pain Present Denied Pain M4 OT- IP ADL's Start: 09/21/20 16:02 Freq: Status: Active Protocol: Document 09/22/20 11:06 CGR (Rec: 09/22/20 11:13 CGR [id number]) OT [id number] Comments OT Self-Feeding Comments Not meal time OT ADL-Grooming General Evaluation Grooming Ability Minimal Assistance Areas Needing Assistance Retrieving/Set-up of Grooming Items,Combing/Brushing Hair, Face Washing Comments OT Grooming Comments Pt washed face with min a for getting bits of tooth paste off his padilla. Pt needed total a for brushing out back hair knots but then was able to brush through his hair and padilla when given verbal cues to perform OT ADL-Oral Care General Eval Oral Care Ability Minimal Assistance Areas of Assistance Brushing Teeth,Retrieving/Set- Up of Items Comments Oral Care Comments Pt brushed teeth without intervention but needed assist with opening tooth paste and getting paste onto brush. OT ADL-Dressing Comments OT Dressing Comments Not performed OT ADL-Toileting General Evaluation Toileting Ability Maximum Assistance Areas Needing Assistance Manage Clothing Comments OT Toileting Comments Pt sat on toielt for attempted BM. Pt was unable to void but needed assist with pulling down brief and pulling brief up after sitting on toilet. Pt also needed vc to perform these actions prior to sitting on toielt or ambulating once standing. OT ADL-Bathing Comments OT Bathing Comments Not performed M5 OT- IP IADL's Start: 09/21/20 16:02 Freq: Status: Active Protocol: Document 09/21/20 16:02 CGR (Rec: 09/21/20 16:13 CGR [id number]) OT-Instrumental Activities of Daily Living Deficits IADL Deficits Identified Deficits Home Safety Awareness Awareness of Need for Assistance at Home Decreased Awareness Ability to Problem Solve Emergency Unable to Problem Solve Situations Medication Management Medication Management Caregiver Administers Money Management Money Management Caregiver Provides Assistance Meal Preparation Meal Preparation Caregiver Provides Assist Signal System Testing Maintainer Signal System Testing Maintainer Caregiver Provides Assist Driving Driving Comments Pt does not drive. M6 OT- IP Functional Cognition Start: 09/21/20 16:02 Freq: Status: Active Protocol: Document 09/21/20 16:02 CGR (Rec: 09/21/20 16:13 CGR [id number]) Cognitive Factors Limiting Selfcare Function Cognitive Ability Level of Alertness Alert,Confusional State Patient Orientation Name,Place Attention Span Ability Capable of Focused Attention, Capable of Sustained Attention Ability to Follow Commands Able to Follow One Step Commands with Increased Time, Able to Follow One Step Commands with Repetition Memory Description Immediate Impaired,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,Working Impaired Cognitive Comments Cognitive Assessment Comments Pt demonstrates poor short term memory, requesting to go to the toilet minutes after he returned to chair from toilet . OT- Vision and Hearing OT- Hearing Assessment OT- Hearing Assessment Hearing Impaired OT- Vision Assessment Vision Assessment Comments Pt was unable to follow commands for vision testing. Noted no glasses in room. M7 OT- IP Mobility and Balance Start: 09/21/20 16:02 Freq: Status: Active Protocol: Document 09/22/20 11:06 CGR (Rec: 09/22/20 11:13 CGR [id number]) OT- Bed Mobility Assessment Supine to Sit Supine to Sit Assist Maximum Assistance,Head of Bed Elevated Sit to Supine Sit to Supine Assist Minimal Assistance Scooting Scooting to Edge of Bed Contact Guard Assistance OT-Transfer Assessment Sit to and From Stand Sit to and from Stand Minimal Assistance Transfers Transfer Ability Minimal Assistance Technique Transfer Destination Bed,Bedside Commode,Toilet Transfer Technique Stand Step Pivot Devices Transfer Assistive Devices Gait Belt,Front Wheeled Walker Comments Mobility Comments Pt needs VC for safety with mobility and does not always follow safety cues. Pt was unable to stand at sink for ADLs and sat on BSC. Noted less SOB with todays mobility than with this internal communications writer on . OT- Balance Assessment Sitting Balance and Reactions Static Sitting Balance Ability Good Dynamic Sitting Balance Ability Fair Standing Balance and Reactions Static Standing Balance Ability Fair Dynamic Standing Balance Ability Poor M8 OT- IP Objective Assessments Start: 09/21/20 16:02 Freq: Status: Active Protocol: Document 09/21/20 16:02 CGR (Rec: 09/21/20 16:13 CGR [id number]) OT Gross Range of Motion Upper Extremity Range of Motion Assessment Within Functional Limits OT Strength Upper Extremity Strength Assessment Within Functional Limits Comments Strength Comments 4/5 OT- Coordination Assessment Upper Extremity Finger to Nose Test Within Functional Limits Finger Tapping Test Within Functional Limits OT-Muscle Tone Assessment Muscle Tone WNL Yes OT Sensation Assessment Edema Edema Absent M9 OT- IP Assessment and Plan Start: 09/21/20 16:02 Freq: Status: Active Protocol: Document 09/22/20 11:06 CGR (Rec: 09/22/20 11:13 CGR [id number]) OT Summary Assessment and Plan Potential Rehabilitation Potential Fair Analytic Complexity at Evaluation Low Summary OT Impairments Balance,Functional Cognition, Functional Mobility,Grooming, Dressing,Toileting,Bathing, Toilet Transfers,Shower Transfers,Activity Tolerance Progress Towards Goals Slow Progress due to Cognition Assessment Summary Pt presents as a low complexity evaluation s/p admit for generalized weakness . Pt's baseline per chart states that he requires assist for most mobility and ADLs. Pt is likely close to his baseline and will be appropriate for discharge home when medically stable. However , pt will benefit from continued therapy services while hospitalized to increased strength and endurance. Pt with increased endurance to perform simple ADLs on this date. Pt is agreeable to activities throughout session. Goals Self-Feeding Goal Independent Grooming Goal Independent Dressing Goal Independent Toileting Goal Independent Bathing Goal Independent Toilet Transfer Goal Independent Shower Transfer Goal Independent Days to Meet Goals 20 Frequency of Treatment Frequency Of Treatment Once a Day Treatment Plan OT Treatment Plan ADL Training,Functional Cognition Training,Functional Mobility,Patient/Family Education,Discharge Planning Other Treatment Recommendations and Next ADLs at sink Treatment Focus Discharge Recommendations OT Discharge Recommendations Home with 24/7 Assist Available Home Equipment Needs TBD Transportation Needs at Discharge Private Vehicle
--- NOTE | 2020-09-22 11:17 | P.PN_ITS ---
Subjective Subjective Date Patient Seen: 09/22/20 Interval history: Patient is a 80-year-old male with dementia of atrial fibrillation, CAD DM 2, HTN presented to the ED with weakness and weight loss. There has been no interval change since the patient's admission yesterday. He continues to denied chest pain, shortness of breath, nausea vomiting, abdominal pain, lightheadedness, dizziness. Exam Vital Signs (past 8 hours): - 09/22/20 07:10 09/22/20 08:34 Temperature 97.6 F Pulse Rate 87 87 Respiratory Rate 20 Blood Pressure 158/86 H 158/86 H Pulse Oximetry 97 Oxygen Delivery Method Room Air Oxygen Flow Rate 0 Narrative Exam Narrative: Constitutional: elderly frail cachectic male in no acute di stress HEENT: Normocephalic atraumatic extraocular movements intact pupils are equal round reactive fundi were not visualized sclera and conjunctiva were clear oropharynx is clear with moist mucous membranes Neck: Supple without thyromegaly bruits jugular venous distention Respiratory: Clear to auscultation Cardiovascular: Regular rhythm S1-S2 was normal the renal issues rubs murmurs gallops present GI: Benign bowel sounds present : No Perez present Musculoskeletal: Muscle atrophy, no edema clubbing cyanosis Neurologic: Cranial nerves 2-12 grossly intact. Motor equal active. He was able to squeeze examiner's hand with 5/4 strength he was able to lift his legs off the bed without any difficulty. Centering crude touch intact Psychological: Awake alert oriented to person. Mood appropriate. Objective Labs Result Diagrams: 09/22/20 06:10 09/22/20 06:10 Labs: Laboratory Results - last 24 hr 09/22/20 09/22/20 09/22/20 06:10 06:10 06:10 Hgb 12.0 L Hct 35.3 L Sodium 136 L Potassium 3.4 Chloride 102 Carbon Dioxide 25 BUN 19 Creatinine 0.71 Estimated GFR > 60.0 BUN/Creatinine Ratio 26.8 H Glucose 208 H Hemoglobin A1c 6.6 H Calcium 8.7 Magnesium 1.6 Amylase < 30 L PFSH Medical History Atrial fibrillation CAD (coronary artery disease) Dementia Diabetes Hyperlipidemia Hypertension Urinary incontinence Surgical History History of coronary artery stent placement Social History household members: spouse and family Smoking Status: Former smoker alcohol intake: former Assessment & Plan Assessment & Plan narrative: Patient is a 80-year-old male with multiple cor morbidities consisting of dementia, CAD, DM 2, HTN, atrial fib now in sinus rhythm who presents with progressive weakness, debility and falls, anorexia, marked weight loss Weakness/debility/falls I still feel this is due to progression of his dementia. CT head did not reveal any new acute findings such as stroke, hemorrhage, mass. His CT abdomen pelvis did reveal severe canal stenosis at L4-L5 and there was a fragment at L4-L5 impinging on the right L4 nerve root. However this would not explain his generalized weakness and general and therefore do not feel that this is playing a part in his symptomatology. On this admission there was nothing to suggest the UTI. His UA was negative for wbc's or bacteria being seen. His WBC normal at 6.8 and he was afebrile. Chest x-ray did not show any infiltrate. Therefore there is no source of infection at this time to explain his symptoms either Blood cultures no growth to date Follow-up on B12, TSH and cortisol PT/OT to see Anorexia/weight loss Is possible there could be an undiagnosed malignancy however he has had CT of his abdomen and pelvis as well as chest x-ray and there is no noted change that would be referable to malignancy. There is nothing to suggest thyroid disorder. His EKG shows normal sinus rhythm. If he did have hyperthyroidism and would be apathetic hyperthyroidism. Will not check tumor markers as patient's x-rays and scans do not reveal any changes suggestive of malignancy. Also his CBC is not suggestive of a hematologic malignancy. follow up on his TSH Continue Remeron for appetite Atrial fibrillation Present EKG reveals patient is in normal sinus rhythm Continue his home carvedilol HTN Continue on home carvedilol, amlodipine, losartan DM2 POC GLUCOSES 224, 219, 184, 271 Hemoglobin A1c was 6.6 Continue diabetic diet Increase Lantus from 10 units to 15 units q.h.s. and continue SSI Quality VTE Deep Vein Thrombosis/Pulmonary Embolism Present on Admission: No
--- NOTE | 2020-09-22 13:25 | PT.IPTN ---
Physical Therapy Treatment Note M2 PT-IP Current Condition Start: 09/21/20 14:11 Freq: NEEDED Status: Active Protocol: Document 09/21/20 13:30 AB (Rec: 09/21/20 14:25 AB [id number]) Physical Therapy Current Condition Current Condition Evaluation Date 09/21/20 Treatment Diagnosis A-fib; weakness; difficulty in walking Onset Date 09/21/20 Precautions Other Precautions Falls M3 PT-IP Subjective Start: 09/21/20 14:11 Freq: NEEDED Status: Active Protocol: Document 09/22/20 13:20 AW (Rec: 09/22/20 13:44 AW [id number]) Subjective Physical Therapy Visit Type Type Treatment Note Visit Start Time 12:54 Visit Stop Time 13:20 Total Visit Minutes 26 Notes Pt's , Hemalatha, was present throughout. She states pt is typically modified independent with use of FWW. Number of DIRECTOR BANKING Visits 0 Physical Therapy Visit Comments Patient Comments Pt receptive to therapy. Therapy Pain Assessment Pain When Pain Assessed During Mobility Pain Present Pain Present Denied Pain M4 PT-IP Mobility and Gait Start: 09/21/20 14:11 Freq: NEEDED Status: Active Protocol: Document 09/22/20 13:20 AW (Rec: 09/22/20 13:44 AW [id number]) PT-Transfer Assessment Sit to and From Stand Sit to and from Stand Minimal Assistance Equipment Transfer Assistive Device Gait Belt,Front Wheeled Walker Orthotic/Prosthetic Devices or Brace: No Transfers Transfer Destination Chair,Toilet Transfer Technique Stand Step Pivot Transfer Ability Level of Assist Minimal Assistance Comments Mobility Comments Pt was sitting up in the chair visiting with his as PT arrived. He scooted forward on the chair and stood mod A x 1 , complaining immediately of feeling wobbly. PT provided mod assist to arrest posterior lean. Pt agreed to ambulate and walked into the hallway a total of 50 feet with FWW mod A x 1 and max cues for walker management. Pt required two standing rest breaks with notable SOB. On return to the room, pt transferred to the chair mod A x 1 and cues for safety but pt does not follow all cues. Pt then stated he'd like to try to use the toilet. He stood and walked to the toilet mod A x 1 with FWW and needed cues to use the grab bars for transfer. After unsuccessful attempt to move his bowels, pt returned to the chair mod A x 1. He was positioned there with call light in reach and chair alarm on. Pt was left with his in the room and RECONNAISSANCE MAN providing 1:1 at the doorway. Gait Assessment Gait Gait Assistance Required: Moderate Assistance Distance (Feet) 50 Able to Maintain Weight Bearing Status Yes During Gait Assistive Devices Assistive Device Gait Belt,Front Wheeled Walker Orthotic/Prosthetic Devices or Brace: No Gait Deviations General Gait Pattern Antalgic,Decreased Stride Length,Decreased Feet Clearance Factors Limiting Gait Function Factors Limiting Gait Function Decreased Activity Tolerance, Decreased Strength,Difficulty Following Directions,Poor Balance,Poor Safety Awareness Comments Gait Comments Pt requires max cues for safety with walker management. PT-Balance Assessment Sitting Balance and Reactions Static Sitting Balance Ability Good Dynamic Sitting Balance Ability Fair Standing Balance and Reactions Static Standing Balance Ability Fair Dynamic Standing Balance Ability Poor Device Used FWW M5 PT-IP Objective Assessments Start: 09/21/20 14:11 Freq: NEEDED Status: Active Protocol: Document 09/21/20 13:30 AB (Rec: 09/21/20 14:25 AB [id number]) Orientation Orientation/Cognition Level of Alertness Confusional State Orientation Name,Place Language Function Ability Hard of Hearing Safety Awareness Decreased Safety Awareness Memory Description 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,Half-Way Impaired Gross Range of Motion Lower Extremity ROM Assessment Within Functional Limits Strength Lower Extremity Strength Hip 4-/5 Knee 3+/5 Muscle Tone Muscle Tone WNL Yes M6 PT-IP Treatment Start: 09/21/20 14:11 Freq: NEEDED Status: Active Protocol: Document 09/22/20 13:20 AW (Rec: 09/22/20 13:44 AW [id number]) Physical Therapy Treatment Education Education Provided Safety M7 PT-IP Assessment and Plan Start: 09/21/20 14:11 Freq: NEEDED Status: Active Protocol: Document 09/22/20 13:20 AW (Rec: 09/22/20 13:44 AW [id number]) PT Summary Assessment and Plan Potential Rehabilitation Potential Good Status of Condition at Evaluation Evolving Summary Impairments Pain,ROM,Strength,Balance, Coordination,Sensation,Tone, Cognition,Bed Mobility, Transfers,Gait,Activity Tolerance Progress Towards Goals Slow Progress due to Activity Tolerance,Slow Progress - Other Assessment Summary Pt continues to require mod assist with mobility and max cues for safety, representing significant debility compared with baseline function. Pt would benefit from SNF rehab to improve strength and mobility independence. If pt goes home, he will need HH therapy for same. PT will continue to assess and refine discharge disposition. Goals Bed Mobility Goal Standby Assistance Transfer Goal Standby Assistance,Front Wheeled Walker,Four Wheeled Walker Gait Goal Standby Assistance,Front Wheel Walker,Four Wheel Walker Gait Distance 150 Other Goals up/down 5 steps B rail sSBA Days to Meet Goals 5 Frequency of Treatment Frequency Of Treatment Once a Day Treatment Plan Physical Therapy Treatment Plan Bed Mobility Training,Transfer Training,Gait Training, Therapeutic Exercise,Balance Retraining,Discharge Planning, Hot or Cold Pack,Neuromuscular Re-ed,Coordination Retraining Precautions Other Precautions falls Recommendations To Nursing Amount of Assist Needed 1 Person Assist Discharge Recommendations PT Discharge Recommendations Home with 08/02 Assist Available,Home Health,SNF Rehab Transportation Needs at Discharge Private Vehicle
[2020-09-22 14:37] LABS: TSH w/ Reflex to FT4 0.91 uIU/mL (0.47-4.68)
[2020-09-22 14:42] LABS: Cortisol AM (Before 10AM) 28.1 ug/dL (4.46-22.7)
--- NOTE | 2020-09-22 14:44 | CM.DANOTE ---
DCP/Assessment: Reviewed chart. Patient is a 80yr old male admitted to [facility] with generalized weakness and AFiB. PCP is Dr. Patterson in [place] Primary payor is 1)Medicare 2)[employer]. Met with patient and spouse/Hemalatha this afternoon explained CM/SW role. Patient seen by therapy today and current recommendation is home with home health vs. SNF. Spouse reports that patient has dementia and prior to recent fall approximately 3dys ago was able to ambulate with walker at residence. Spouse reports that patient resides in [place] with family which includes son. Spouse aware of potential need for SNF but reports that she would prefer home. Spouse reports patient has lost significant amount of weight over the last month. Spouse indicates patient just does not want to eat. Recommend nutrition evaluation for suggestions on nutrition supplements. Spouse reports that they have not tried any type of supplement. Spouse provided NEWSPAPER SUBSCRIPTION SOLICITOR with permission to have [facility] review for possible admit. Placed call to [facility] spoke with Ania she will have Dede review tomorrow 09-23-20. Patient deemed inpatient status as of today. P: Pending. Anticipate home with home health vs. SNF. Therapy planning to do follow up tomorrow and nutrition consult ordered. Spouse reports that she will be here in the early afternoon. BILL Beck Discharge Planning/Care Management Advanced directive, confirm from FAMILY Start: 09/21/20 12:52 Freq: Q24H Status: Active Protocol: Document 09/21/20 13:02 KAB (Rec: 09/21/20 13:03 KAB [id number]) Advance Directive, confirm on record Time 13:03 Person contacted Copy received No CM Discharge Assessment Start: 09/22/20 14:39 Freq: Status: Active Protocol: Document 09/22/20 14:39 KJS (Rec: 09/22/20 14:44 KJS [id number]) Discharge Planning Assessment Assigned Bundler Season[employer] BILL Beck Contact Information Hemalatha Diaz (spouse) # [phone] Advance Directives? Yes Advance Directives on File No History Provided By Patient,Significant Other, Medical Record Prior Living Arrangements House Household Members spouse,family Type of transporation used prior to Relies on Others admit Independent with ADL's No: Patient fell few days ago, spouse reports decrease in I . Is patient alert and oriented? Spouse reports h/o dementia. Needs Assistance With Bathing,Grooming,Managing Medications,Home Chores / Shopping Caregiver for Another No DME Already Rented / Owned FWW / Walker Comment Anticipate SNF vs. home with home health. Comment Family is feeling that it is getting harder to care for patient due to advanced dementia. However, they are unsure about patient going to SNF. Spouse reports that son lives with them and can assist . Discharge Plan [facility] Transportation Arrangement Family or facility Referrals Initiated [facility] If patient plan is SNF: Has PASSR been No completed? Medicare Choice List Provided Yes SNF/HH Preference NEWSPAPER SUBSCRIPTION SOLICITOR requested that [facility] review for possible admit next week? Has Agency SNF been contacted Yes Whiteboard Updated in Patient Room with Yes name and ext. # of Bundler [employer] Review Status In Process Next Review Type Continued Stay Review
[2020-09-22 14:55] LABS: Vitamin B12 Reflex MMA if <400 216 pg/mL (239-931)
[2020-09-22] MEDS: PRAVASTATIN 20 MG TABLET PO (16:38)
[2020-09-22] MEDS: QUETIAPINE 25 MG TABLET PO (20:54)
[2020-09-22] MEDS: MIRTAZAPINE 7.5 MG TABLET PO (20:54)
[2020-09-22] MEDS: INSULIN GLARGINE 100 UNIT/ML 3ML PEN 15 UNIT SUBCUT (20:55)
--- NOTE | 2020-09-23 01:31 | PC.NURSE ---
Addendum entered by Blossom Arvizu R.N. 09/23/20 06:15: Patient asked What's going on? Why am I still here? Informed him of situation and that he's making progress and should be going home soon. I sure fucking hope so. Addendum entered by Blossom Arvizu R.N. 09/23/20 03:27: Awakened patient for blood sugar and vital sign check. Pt confused but cooperative; oriented him to place and situation. Up to use toilet 1PA with FWW; needed prompting to start walking. Had small BM and voided in toilet, as well as incontinence void in brief. Linens changed and patient put back to bed. Denies pain. Original Note: 2305 Received safe hand-off report. The patient is lying supine, AO to self only, on room air and has a left forearm PIV that is saline-locked. He is calm and resting for the moment. No s/s of distress.
[2020-09-23 03:05] VITALS: BP 154/77; PULSE 86; RESP 19; TEMP 36.7; O2SAT 99
[2020-09-23 05:27] LABS: Hematocrit 34.9 % (41-53); Hemoglobin 11.8 g/dL (13.5-17.5)
[2020-09-23 05:53] VITALS: BP 155/79; PULSE 84; RESP 20; TEMP 36.7; O2SAT 97
[2020-09-23 05:54] LABS: BUN Creatinine Ratio 20.5 (6-22); Blood Urea Nitrogen 17 mg/dL (9-20); Calcium 8.6 mg/dL (8.4-10.2); Carbon Dioxide 33 mmol/L (22-32); Chloride 103 mmol/L (98-107); Estimated Glomerular Filt Rate > 60.0 mL/min (>60); Glucose 142 mg/dL (80-110); HEMOLYSIS < 15 (0-50); Magnesium 1.9 mg/dL (1.6-2.3); Potassium 3.5 mmol/L (3.4-5.1); Sodium 138 mmol/L (137-145)
[2020-09-23] MEDS: POTASSIUM CHLORIDE 20 MEQ TAB 40 MEQ PO (06:30)
[2020-09-23 08:35] VITALS: BP 134/67
[2020-09-23] MEDS: LOSARTAN 50 MG TABLET PO (08:35)
[2020-09-23] MEDS: CLOPIDOGREL 75 MG TABLET PO (08:37)
[2020-09-23] MEDS: AMLODIPINE 5 MG TABLET PO (08:37)
[2020-09-23 08:38] VITALS: BP 134/67; PULSE 85
[2020-09-23] MEDS: DOCUSATE 100 MG CAPSULE PO (08:38)
[2020-09-23] MEDS: carvediloL 12.5 MG TABLET PO (08:38)
[2020-09-23] MEDS: CITALOPRAM 10 MG TABLET 20 MG PO (08:38)
[2020-09-23] MEDS: HEPARIN 5,000 UNIT/ML VIAL 5000 UNIT SUBCUT (08:38)
[2020-09-23] MEDS: TAMSULOSIN 0.4 MG CAPSULE PO (08:38)
[2020-09-23] MEDS: INSULIN ASPART 100 UNIT/ML INSULN PEN SUBCUT (08:39)
[2020-09-23] MEDS: polyethylene glycoL 3350 17 GM POWD.PACK PO (08:39)
[2020-09-23 09:00] VITALS: BP 134/67; PULSE 80; O2SAT 98
--- NOTE | 2020-09-23 10:13 | OT.IPNOTE ---
Pt not wanting to work with therapy when approached this morning, to go back to see pt when his is present for caregiver training.
--- NOTE | 2020-09-23 10:39 | P.DS_ITS ---
History of Present Illness History of Present Illness Date Patient Seen: 09/23/20 Time Patient Seen: 10:39 Chief complaint: general weakness/ ? UTI Narrative: Per Dr. Ware, History was obtained from as patient was unable to give history. Patient is a 80-year-old male with dementia of atrial fibrillation, CAD, DM 2, HTN presented to the ED with weakness. states that it has been difficult for the patient to walk even with assistance of his walker. She states that prior to a couple of days ago he could walk up 4 stairs and could walk with his walker. Then 1 day prior to admission while walking with his walker he had a fall. When he fell there was no complaints of dizziness lightheadedness chest pain palpitation. He did not hit his head and did not you lose consciousness. He was assisted up by the and his 52-year-old son who lives with them. She states that recently he has developed shortness of breath and fatigue when walking. Because of this he will stop during his ambulation to catch his breath and then start again. The denied patient expressing problems with a door apnea, PND. She mentions that his appetite has significantly decreased and he has lost weight. She states that he may eat a small amount of breakfast and lunch but now does not eat any dinner. She states that he was a big burley dannie and now he is very thin. She states that his weight loss has occurred over the past several months. She states that he was just in the hospital few months ago for sepsis. After his discharge he states that over the past couple months as when he is ventricularly gone down hill and has been noticeable problems with his weakness and poor appetite. In reviewing his EM are it is revealed that he was d ischarged 07/31/2020 Then with his weakness and difficulty ambulating he was brought to the hospital for further evaluation Discharge Providers Provider Date of admission: 09/22/20 09:40 Discharge Date: 09/23/20 Primary care physician: Reji Patterson MD Consults: 09/21/20 12:16 Consult to Discharge Planning Routine Comment: Consult to Occupational Therapy Evaluate & Treat Comment: Physician Instructions: Evaluate and treat Consult to Physical Therapy Evaluate & Treat Comment: Physician Instructions: Evaluate and Treat 09/21/20 12:49 Consult to Dietitian, Adult Routine Comment: Reason For Exam: MNA = 17, weight loss, per 's report 09/22/20 15:09 Consult to Dietitian, Adult Routine Comment: Spouse would like to be present. Reason For Exam: Significant weight loss Discharge provider: Chase Bartlett DO Summary Hospital Course Discharge Diagnosis: 1. Weakness/debility/falls, present on admission 2. Anorexia/weight loss, present on admission 3. paroxysmal Atrial fibrillation 4. HTN, chronic 5. DM2, chronic 6. dementia, chronic Hospital Course: Patient is a 80-year-old male with multiple cor morbidities consisting of dementia, CAD, DM 2, HTN, atrial fib now in sinus rhythm who presents with progressive weakness, debility and falls, anorexia, marked weight loss. No acute etiologies were found. 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 UA was negative, CXR negative, and no other source of infection was apparent. This may be secondary to progression of dementia. His blood sugars were mildly elevated and his lantus was increased slightly. A1c was 6.6%. Patient was discharged home with home health after PT evaluation. Exam Vital Signs (past 8 hours): - 09/23/20 03:05 09/23/20 05:53 09/23/20 08:35 Temperature 98.0 F 98.0 F Pulse Rate 86 84 Respiratory Rate 19 20 Blood Pressure 154/77 H 155/79 H 134/67 Pulse Oximetry 99 97 09/23/20 08:38 09/23/20 09:00 Temperature Pulse Rate 85 80 Respiratory Rate Blood Pressure 134/67 134/67 Pulse Oximetry 98 Oxygen Delivery Method Room Air Oxygen Flow Rate 0 Narrative Exam Narrative: Constitutional: elderly frail cachectic male in no acute distress HEENT: Normocephalic atraumatic extraocular movements intact pupils are equal round reactive fundi were not visualized sclera and conjunctiva were clear oropharynx is clear with moist mucous membranes Neck: Supple without thyromegaly bruits jugular venous distention Respiratory: Clear to auscultation Cardiovascular: Regular rhythm S1-S2 was normal the renal issues rubs murmurs gallops present GI: Benign bowel sounds present : No Perez present Musculoskeletal: Muscle atrophy, no edema clubbing cyanosis Neurologic: Cranial nerves 2-12 grossly intact. Motor equal active. He was able to squeeze examiner's hand with 5/4 strength he was able to lift his legs o ff the bed without any difficulty. Centering crude touch intact Psychological: Awake alert oriented to person. Mood appropriate. Objective Labs Result Diagrams: 09/23/20 05:12 09/23/20 05:12 Labs: Laboratory Results - last 24 hr 09/22/20 09/22/20 09/23/20 05:00 06:10 05:12 Hgb 11.8 L Hct 34.9 L Sodium Potassium Chloride Carbon Dioxide BUN Creatinine Estimated GFR BUN/Creatinine Ratio Glucose Calcium Magnesium Vitamin B12 216 L TSH 0.91 Random Cortisol Cancelled Cortisol AM Sample 28.1 H 09/23/20 05:12 Hgb Hct Sodium 138 Potassium 3.5 Chloride 103 Carbon Dioxide 33 H BUN 17 Creatinine 0.83 Estimated GFR > 60.0 BUN/Creatinine Ratio 20.5 Glucose 142 H Calcium 8.6 Magnesium 1.9 Vitamin B12 TSH Random Cortisol Cortisol AM Sample PFS Medical History Atrial fibrillation CAD (coronary artery disease) Dementia Diabetes Hyperlipidemia Hypertension Urinary incontinence Surgical History History of coronary artery stent placement Social History household members: spouse and family Smoking Status: Former smoker alcohol intake: former Discharge Plan Discharge Plan Patient Disposition: Home Health Service Provider Discharge Comment: Admitted to the hospital with weakness. No acute etiologies found. Seen by nutrition, please follow up with your primary care provider. Insulin increased to 15 units based on blood sugars here. Discharge orders & Medications Prescriptions: Continued carvedilol 12.5 mg tablet 12.5 tab PO BID RF: 0 clopidogrel 75 mg tablet 75 mg PO DAILY RF: 0 citalopram 20 mg tablet 20 mg PO DAILY RF: 0 buspirone 10 mg tablet 10 tab PO BID PRN (Reason: Anxiety) RF: 0 pravastatin 20 mg tablet 20 mg PO QPM RF: 0 amlodipine 5 mg tablet 5 mg PO DAILY RF: 0 metformin 1,000 mg tablet 1,000 mg PO BIDAC RF: 0 losartan 50 mg tablet 50 mg PO DAILY RF: 0 tamsulosin 0.4 mg capsule 0.4 mg PO BID RF: 0 hydrocodone-acetaminophen 5-325 mg tablet 1 tab PO PRN PRN (Reason: Pain (Scale Score 4-6)) RF: 0 trospium 20 mg tablet 20 mg PO BID RF: 0 quetiapine 50 mg tablet 25 mg PO BEDTIME RF: 0 polyethylene glycol 3350 [Miralax] 17 gram Powder In Packet 17 g PO DAILY RF: 0 Changed insulin glargine 100 unit/mL (3 mL) insulin pen 15 unit Sub-Q QPM Qty: 0 RF: 0 Discontinued cephalexin 250 mg capsule 250 mg PO DAILY RF: 0 Follow up/Referrals: Reji Patterson MD [Primary Care Provider] - Diet/Activity/Treatments Diet: Diet as Tolerated and Carb-consistent/Diabetic Activity: As tolerated Discharge Data Primary Care Provider: Reji Patterson Quality VTE Deep Vein Thrombosis/Pulmonary Embolism Present on Admission: No
--- NOTE | 2020-09-23 10:45 | DIET.PN ---
Dietary Progress Note Assessment: Mr. Diaz is a 80-year-old male with hx of dementia, atrial fibrillation, CAD, DM 2, HTN who presented to the ED with weakness. Pt provides hx and states that recently he has developed shortness of breath and fatigue when walking. She reports significant decrease in appetite with unintentional weight loss. She states that he may eat a small amount of breakfast, usually coffee and a roll, and lunch such such as stir bailey but generally does not eat any dinner. She states that his weight loss has occurred over the past several months. He is currently on 10 unites of lantus for glucose control and Remeron for appetite stimulation. HT: 172.72cm WT: 76kg UBW: 90.7kg (12/2019) BMI: 25.5 %change: 16% Labs: A1c: 6.6 Glucose: 208, 142 MNA:8 (at risk for malnutrition) Sy: 17 Nutrition Diagnosis: Moderate chronic protein calories malnutrition r/t dementia, loss of appetite aeb pt report energy intake <75% EER x several months, weight loss 16% in 9 mo, report mod loss of muscle/fat mass, generalized weakness. Interventions: 1. Discussed high calorie, high protein nutrition therapy. Handouts provided on nutritional needs, meal plan guide, recipes. 2. Recommended ONS premier protein or ensure Max Protein to help meet protein/calorie goals. Provided coupons. Pt agreeable. Diet Order: CCD EER: 1900cal (25 echo/kg BMI); Pro: 91g (1.2g per elderly malnutrition) Monitoring/Evaluations: weight, PO's, ONS acceptance
--- NOTE | 2020-09-23 11:25 | PT.IPTN ---
Addendum entered and electronically signed by Lela Servin PTA 09/23/20 12:11: TAI CHI INSTRUCTOR provided education with can request assist of caregivers to come in to relieve her at times. Original Note: Current Diagnoses Weakness (09/22/20) Physical Therapy Treatment Note M2 PT-IP Current Condition Start: 09/21/20 14:11 Freq: NEEDED Status: Active Protocol: Document 09/21/20 13:30 AB (Rec: 09/21/20 14:25 AB [id number]) Physical Therapy Current Condition Current Condition Evaluation Date 09/21/20 Treatment Diagnosis A-fib; weakness; difficulty in walking Onset Date 09/21/20 Precautions Other Precautions Falls M3 PT-IP Subjective Start: 09/21/20 14:11 Freq: NEEDED Status: Active Protocol: Document 09/23/20 10:42 SP (Rec: 09/23/20 12:10 SP [id number]) Subjective Physical Therapy Visit Type Type Treatment Note Visit Start Time 10:42 Visit Stop Time 11:25 Total Visit Minutes 43 Notes Pt's , [place], was present throughout. Completed caregiver training including donning gait belt after shown, physical assist to sit>stand, gait and stair mgt and bed mobility. Number of TAI CHI INSTRUCTOR Visits 1 Physical Therapy Visit Comments Patient Comments Pt receptive to therapy after 2nd attempt with in attendance. Therapy Pain Assessment Pain Present Pain Present Denied Pain M4 PT-IP Mobility and Gait Start: 09/21/20 14:11 Freq: NEEDED Status: Active Protocol: Document 09/23/20 10:42 SP (Rec: 09/23/20 12:10 SP [id number]) PT-Bed Mobility Assessment Sit to Supine Sit to Supine Minimal Assistance,Moderate Assistance,1 Person Assistance PT-Transfer Assessment Sit to and From Stand Sit to and from Stand Minimal Assistance,Moderate Assistance,1 Person Assistance ,Use of Upper Extremities Equipment Transfer Assistive Device Gait Belt,Front Wheeled Walker Orthotic/Prosthetic Devices or Brace: No Transfers Transfer Destination Bed,Wheelchair Transfer Technique Stand Step Pivot Transfer Ability Level of Assist Contact Guard Assistance, Minimal Assistance,1 Person Assistance,Use of Upper Extremities Comments Mobility Comments Pt was reclined in chair when arrived. donned gait belt with education of importance of added support for safety. Sit>stand Mod A x1 by w/ cued for scot to EO chair and hip hinge forward using BUE and legs under him. Pt ambulated further distance into hallway to stairs approx 150 ft using FWW, CG- Min by with therapist trailing with W/c. Pt ascended/ descended 9 stairs CG- Min A B HR step to gait. Then wheeled back to room. Sit> stand from w/c Marcell of support and ambulated to L side of bed. Stand>sit CG, Sit> supine Min A of 1 for LE support in bed, Mod A for stationary support while pt pulled on 's arm to reposition upper body in bed then max cuing for LE and pelvis repositioning. TAI CHI INSTRUCTOR provided education on cuing pt for self repositioing throughout tx for increased self strength and mobility. Armed bed and provided all needs with call light in reach before left. Gait Assessment Gait Gait Assistance Required: Contact Guard Assist,Minimum Assistance,1 Person Assist Distance (Feet) 150 Able to Maintain Weight Bearing Status Yes During Gait Assistive Devices Assistive Device Gait Belt,Front Wheeled Walker Orthotic/Prosthetic Devices or Brace: No Gait Deviations General Gait Pattern Antalgic,Decreased Stride Length,Decreased Feet Clearance,Flexed Trunk,Narrow Based Gait Factors Limiting Gait Function Factors Limiting Gait Function Decreased Activity Tolerance, Decreased Strength,Difficulty Following Directions,Poor Balance,Poor Safety Awareness, Respiratory Distress Comments Gait Comments TAI CHI INSTRUCTOR provided intermittent cuing and education to to tell pt cuing for body closer to FWW and upright posture, obstacle navigation for safety and stand rest breaks as needed for strength and energy conservation and decreased support required by her with fair carryover. Stair Climbing Assessment Evaluation Level of Assist On Stairs Contact Guard Assistance, Minimal Assistance,1 Person Assistance Devices Stair Climbing Assistive Devices Left Railing,Right Railing Technique/Endurance Stair Climbing Direction Ascend and Descend Stair Climbing Technique Step to Step Number of Steps Climbed 3 Stair Climbing Set # Repetitions (reps) 3 Comments Stair Climbing Comments Ascend descend 3 stairs x3 sets step 2 patterning, cuing required to pt upright posture, knees straight when WB ascend/descend for stabiltiy awareness and cued to to give theses cuing to pt and her body positioning closer ascending to allow increased safety support if needed. PT-Balance Assessment Sitting Balance and Reactions Static Sitting Balance Ability Good Dynamic Sitting Balance Ability Fair Standing Balance and Reactions Static Standing Balance Ability Fair Dynamic Standing Balance Ability Poor Device Used FWW M5 PT-IP Objective Assessments Start: 09/21/20 14:11 Freq: NEEDED Status: Active Protocol: Document 09/21/20 13:30 AB (Rec: 09/21/20 14:25 AB [id number]) Orientation Orientation/Cognition Level of Alertness Confusional State Orientation Name,Place Language Function Ability Hard of Hearing Safety Awareness Decreased Safety Awareness Memory Description 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,Jail Impaired Gross Range of Motion Lower Extremity ROM Assessment Within Functional Limits Strength Lower Extremity Strength Hip 4-/5 Knee 3+/5 Muscle Tone Muscle Tone WNL Yes M6 PT-IP Treatment Start: 09/21/20 14:11 Freq: NEEDED Status: Active Protocol: Document 09/23/20 10:42 SP (Rec: 09/23/20 12:10 SP [id number]) Physical Therapy Treatment Education Education Provided Safety M7 PT-IP Assessment and Plan Start: 09/21/20 14:11 Freq: NEEDED Status: Active Protocol: Document 09/23/20 10:42 SP (Rec: 09/23/20 12:10 SP [id number]) PT Summary Assessment and Plan Potential Rehabilitation Potential Good Status of Condition at Evaluation Evolving Summary Impairments Pain,ROM,Strength,Balance, Coordination,Sensation,Tone, Cognition,Bed Mobility, Transfers,Gait,Activity Tolerance Progress Towards Goals Slow Progress due to Activity Tolerance,Slow Progress - Other Assessment Summary Pt continues to require min- mod assist with mobility and max cues for safety sequencing with upright posture, and pt stated pt is not as strong as has been in the past and felt more effort than previous baseline function. Pt is ok to return home with and family to assist w/ HHPT to provided increased strengthening support to allow increased independence. Goals Bed Mobility Goal Standby Assistance Transfer Goal Standby Assistance,Front Wheeled Walker,Four Wheeled Walker Gait Goal Standby Assistance,Front Wheel Walker,Four Wheel Walker Gait Distance 150 Other Goals up/down 5 steps B rail sSBA Days to Meet Goals 5 Frequency of Treatment Frequency Of Treatment Once a Day Treatment Plan Physical Therapy Treatment Plan Bed Mobility Training,Transfer Training,Gait Training, Therapeutic Exercise,Balance Retraining,Discharge Planning, Hot or Cold Pack,Neuromuscular Re-ed,Coordination Retraining Other Recommendations and Next Treatment Distance gait, LE ex including Focus sit to stands, standing and bal ex. HHPT to incorporated stair mgt into tx when appropriate for appts. Precautions Other Precautions falls Recommendations To Nursing Amount of Assist Needed 1 Person Assist Discharge Recommendations PT Discharge Recommendations Home with / Assist Available,Home Health Transportation Needs at Discharge Private Vehicle
--- NOTE | 2020-09-23 12:40 | PC.NURSE ---
VSS. B. Given 1 unit Novolog sliding scale with breakfast. Denies pain. at bedside for PT and food mixer assembler consult. seemed overwhelmed with the education and care she will need to provide once they are home. Patient's daughter was brought up to be present for educational information around discharge and offer support to her parents. IV line removed. All questions answered. Escorted off of unit at 12:35 via wheelchair to personal vehicle, daughter driving home.
--- NOTE | 2020-09-23 15:08 | CM.DPNOTE ---
Faxed clinicals, order, med list, pt/ot notes to [facility] on 09/23/20. Fax confirmation received. Eva Schulte CM Asst.
--- NOTE | 2020-09-23 16:24 | CM.DANOTE ---
DCP continued: Reviewed chart. Per provider this AM patient medically stable for discharge home today. Nutrition consult obtained and they will see patient this AM when spouse arrives. In addition, PT following. Current recommendation is home with HH. Patient previously on service with [facility] and this is who they would like to use. Met with patient, daughter, and spouse prior to d/c. Spouse very emotional about taking patient home today? Spouse reports that he has been a lot of work. Family capable of assisting but patient wants 'spouse. Daughter reports that patient is currently Medicaid applied. Family hopeful that patient will qualify and get [facility]. Unclear if patient would be best at home vs. long-term placement. Patient and daughter aware and agreeable to take patient home today with HH through [facility]. No additional needs identified. Community resources provided. P: Home with family support. BILL Beck
[2020-09-25 00:42] LABS: Methylmalonic Acid,Serum 176 nmol/L (0-378)
== END 2020-09-23 12:35 | disposition home health service (06) | DRG 948 ==
LOC: ED 11:32 → AC 11:37
PROVIDERS: Nurse Practitioner Family; Admitting Provider Internal Medicine; Emergency Provider Emergency Medicine; PCP Internal Medicine; Referring Provider Emergency Medicine; Visit Provider Internal Medicine
DX: R53.1 Weakness (principal); I48.0 Paroxysmal atrial fibrillation; R63.0 Anorexia; F03.90 Unspecified dementia, unspecified severity, without behavioral disturbance, psychotic disturbance, mood disturbance, and anxiety; I25.10 Atherosclerotic heart disease of native coronary artery without angina pectoris; E78.5 Hyperlipidemia, unspecified; E11.9 Type 2 diabetes mellitus without complications; I10 Essential (primary) hypertension; Z20.822 Contact with and (suspected) exposure to COVID-19; Z68.25 Body mass index [BMI] 25.0-25.9, adult; Z87.891 Personal history of nicotine dependence; Z79.4 Long term (current) use of insulin; Z91.81 History of falling
CPT/HCPCS: 36415; 51798; 70450; 71045; 74177; 80048; 80053; 81001; 82150; 82533; 82550; 82607; 82962; 83036; 83605; 83690; 83735; 83921; 84145; 84443; 84484; 85014; 85018; 85025; 85610; 85730; 87040; 87635; 93005; 96374; 97116; 97162; 97165; 97530; 97535; 99282; 99284; C9803; G0378; J1644; J3475; Q9967

== ENCOUNTER 2020-11-20 19:22 | Inpatient (IN) | payer MEDICARE, OTHER, SELFPAY ==
[2020-09-21 12:40] VITALS: BMI 26.9
[2020-11-20] VITALS (12 sets, daily range): BP systolic 155–195; BP diastolic 69–86; PULSE 87–97; RESP 15; TEMP 37; O2SAT 96–98; BMI 26.9; BMI 25.6
--- NOTE | 2020-11-20 19:36 | DI.CT.S_ITS ---
PROCEDURE: CT STROKE INDICATIONS: neuro changes TECHNIQUE: Noncontrast 4.5 mm thick angled axial sections acquired from the foramen magnum to the vertex, with coronal reformats. For radiation dose reduction, the following was used: automated exposure control, adjustment of mA and/or kV according to patient size. COMPARISON: [facility], CT, CT HEAD/BRAIN WO CON, 09/21/2020, 9:11. FINDINGS: Image quality: Excellent. CSF spaces: Basal cisterns are patent. No extra-axial fluid collections. The ventricles are stable in size and shape. Brain: No intracranial bleeds or masses. There is cerebral volume loss for age, with resultant ventricular and sulcal prominence. There are periventricular and deep white matter chronic small vessel ischemic changes. There is intracranial internal carotid artery atherosclerosis. Skull and face: Calvarium and visualized facial bones appear intact, without suspicious lesions. Soft tissue stranding and possible subcutaneous cystic lesion seen on image 4/2 in the posterior suboccipital region, unchanged since the prior study. Recommend clinical correlation and direct visual inspection. Sinuses: Visualized sinuses and mastoids are clear. IMPRESSION: No acute intracranial process. Ill-defined inflammatory stranding possible cystic focus in the suboccipital soft tissues as above. Please correlate clinically and with direct visual inspection. This study fulfills neurological imaging criteria for inclusion or exclusion of acute stroke therapies based on available published neurological guidelines. Dictated by: Yunier Rose M.D. on 11/20/2020 at 19:56 Approved by: Yunier Rose M.D. on 11/20/2020 at 19:59
[2020-11-20] MEDS: SODIUM CHLORIDE 0.9% 1,000 ML 150 ML IV (20:00)
[2020-11-20 20:09] LABS: INR 1.3 (0.9-1.3)
[2020-11-20 20:10] LABS: Add Manual Diff / Slide Review NO; Basophils Absolute Auto 0 /uL (0-100); Basophils Percent Auto 0.3 % (0-2); Eosinophils Absolute Auto 0 /uL (0-450); Eosinophils Percent Auto 0.4 % (2-4); Hematocrit 31.5 % (41-53); Hemoglobin 10.8 g/dL (13.5-17.5); Lymphocytes Absolute Auto 1100 /uL (1100-4500); Lymphocytes Percent Auto 9.5 % (25-40); Mean Corpuscular HGB Conc 34.2 % (30-36); Mean Corpuscular Hemoglobin 31.7 PG (26-34); Mean Corpuscular Volume 92.7 fL (80-100); Monocytes Absolute Auto 1000 /uL (0-900); Monocytes Percent Auto 8.8 % (3-14); Neutrophils Absolute Auto 8900 /uL (1500-7000); Platelet Count 179 X10^3/uL (150-400); Red Cell Distribution Width 13.7 % (11.6-14.8)
[2020-11-20 20:12] LABS: PTT Partial Thromboplastin Tim 33 SECONDS (26.4-36.2)
--- NOTE | 2020-11-20 20:38 | ED.NEUROSD ---
HPI - Neuro Symptoms/Deficit General Chief Complaint: Neuro Symptoms/Deficit Stated Complaint: Confusion Time Seen by Provider: 11/20/20 20:20 Source: patient and family Mode of arrival: EMS History of Present Illness HPI Narrative: Patient brought in by ambulance from home for altered mental status and word salad and confusion. I spoke with son CINDY. Patient is usually oriented to self and day and setting. However ongoing for 1 week and worsened at 9:00 a.m. this morning. Has been weak and confused. Needs a lot of redirecting. Had a 3 hour episode this afternoon with confusion/mixed words. No slurred speech or facial droop. No limb weakness witnessed by family. No prior history of stroke. History UTI in the past with with admission. Son states patient is DNR DNI. Is amenable to antibiotics and IV fluids and medication only. Onset (ago): day(s) On Anticoagulants: Yes (plavix) Related Data Home Medications Medication Instructions Recorded Confirmed buspirone 10 tab PO BID PRN 03/07/18 09/21/20 carvedilol 12.5 tab PO BID 03/07/18 09/21/20 citalopram 20 mg PO DAILY 03/07/18 09/21/20 clopidogrel 75 mg PO DAILY 03/07/18 09/21/20 pravastatin 20 mg PO QPM 03/07/18 09/21/20 amlodipine 5 mg PO DAILY 12/28/19 09/21/20 losartan 50 mg PO DAILY 12/28/19 09/21/20 metformin 1,000 mg PO BIDAC 12/28/19 09/21/20 tamsulosin 0.4 mg PO BID 12/28/19 09/21/20 hydrocodone-acetaminophen 1 tab PO PRN PRN 09/21/20 09/21/20 polyethylene glycol 3350 [Miralax] 17 g PO DAILY 09/21/20 09/21/20 quetiapine 25 mg PO BEDTIME 09/21/20 09/21/20 trospium 20 mg PO BID 09/21/20 09/21/20 Previous Rx's Medication Instructions Recorded insulin glargine 15 unit SUB-Q QPM #0 ml 09/23/20 Allergies Allergy/AdvReac Type Severity Reaction Status Date / Time Sulfa (Sulfonamide Allergy Mild CHILDHOOD Verified 11/20/20 19:29 Antibiotics) REACTION Review of Systems Review of Systems Narrative: GENERAL: Denies chills, fatigue, complains malaise, denies fever, sweats. HEENT: Denies sinus pain, ear pain, sore throat RESPIRATORY: Denies dyspnea, cough CARDIOVASCULAR: Denies chest pain, palpitations GASTROINTESTINAL: Denies nausea, vomiting, abdominal pain : Denies dysuria, possible frequency, denies hematuria MUSCULOSKELETAL: denies muscle or bony pain SKIN: Denies rash, skin lesions NEUROLOGIC: Denies unilateral weakness, numbness, complaints of confusion ROS Unobtainable: All systems reviewed & are unremarkable except as noted in HPI and below Hematologic/Lymphatic On Anticoagulants: Yes (plavix) Patient History Medical History Atrial fibrillation CAD (coronary artery disease) Dementia Diabetes Hyperlipidemia Hypertension Marijuana smoker, continuous Urinary incontinence Surgical History History of coronary artery stent placement Family History (Updated 11/21/20 @ 01:35 by CAROLANN Patel) Other Unknown family medical history Social History household members: spouse and family Smoking Status: Former smoker alcohol intake: former Smoking Status: Former smoker alcohol intake frequency: 0-2 drinks per day Substance Use Type: marijuana Exam Narrative Exam Narrative: GENERAL: in no distress, not toxic not dyspneic HEAD: Normocephalic. EYES: Pupils equal round No scleral icterus. No injection no discharge ENT: Mucous membranes moist. NECK: Trachea midline. CARDIOVASCULAR: Regular rate and rhythm without murmurs RESPIRATORY: Clear to auscultation. Breath sounds equal bilaterally. No wheezes, rales, or rhonchi. GASTROINTESTINAL: Abdomen soft, non-tender bowel sounds present. No peritoneal signs EXTREMITIES: No gross deformities. BACK: No flank tenderness. NEURO: Patient is awake alert and oriented only to self and date of . Not today time place setting or event. Clear speech, no obvious facial droop or lip droop, however patient does have a padilla. Strong equal program and research coordinator. Strong equal bilateral ankle knee hip flexion extension. Light touch intact bilateral face hands and legs. Negative pronator drift. [id number] intact bilaterally SKIN: Warm and dry PSYCH: Not anxious, is cooperative Initial Vital Signs Initial Vital Signs: Vital Signs Temperature 98.6 F 11/20/20 19:25 Pulse Rate 94 H 11/20/20 19:25 Respiratory Rate 15 11/20/20 19:25 Blood Pressure 171/81 H 11/20/20 19:25 Pulse Oximetry 98 11/20/20 19:25 Course Course Course Narrative: No new issues during course of stay Decision to Admit Date: 11/20/20 Decision to Admit time: 20:42 Orders Ordered: ED Orders 11/20/20 19:36 CT Stroke Stat EKG-12 Lead Stat 11/20/20 19:57 Complete Blood Count AUTO DIFF Stat Comprehensive Metabolic Panel Stat Partial Thromboplastin Time Stat Prothrombin Time INR Stat 11/20/20 20:43 CT abdomen pelvis wo con Stat XR chest 1V Stat 11/20/20 21:01 Urine Culture Stat Urine Drug Screen, Rapid Stat Urine Microscopic Stat 11/20/20 21:50 COVID19 - ADMIT ([employer]OR swab/PCR) Stat Acetaminophen (Acetaminophen 325 Mg Tablet) 650 mg PO Q6HR PRN PRN Reason: Fever/Mild Pain (1-3) Hydrocodone Bitart/Acetaminophen (Hydrocodone/Acet 5/325 Tablet) 0.5 tab PO Q4HR PRN PRN Reason: Pain, Moderate (4-6) Amlodipine Besylate (Amlodipine 5 Mg Tablet) 5 mg PO DAILY REPLACED BY [facility] Aspirin (Aspirin Ec 81 Mg Tablet) 81 mg PO DAILY REPLACED BY [facility] Atorvastatin Calcium (Atorvastatin 20 Mg Tablet) 80 mg PO BEDTIME SARINA Buspirone HCl (Buspirone 5 Mg Tablet) 10 mg PO BID PRN PRN Reason: Anxiety Carvedilol (Carvedilol 12.5 Mg Tablet) 156.25 mg PO BID REPLACED BY [facility] Citalopram Hydrobromide (Citalopram 10 Mg Tablet) 20 mg PO DAILY REPLACED BY [facility] Clopidogrel Bisulfate (Clopidogrel 75 Mg Tablet) 75 mg PO DAILY REPLACED BY [facility] Dextrose (Dextrose 50 % In Water 25 Gm/50 Ml Syringe) 25 gm IV PRN PRN PRN Reason: Hypoglycemia Enoxaparin Sodium (Enoxaparin 40 Mg/0.4 Ml Syringe) 40 mg SUBCUT DAILY REPLACED BY [facility] Sodium Chloride (Normal Saline 0.9%) 1,000 mls @ 150 mls/hr IV CONT SARINA Last Infusion: 11/20/20 23:49 Dose: 0 mls/hr Documented by: Admin: 11/20/20 20:00 Dose: 150 mls/hr Documented by: YOSHI Insulin Glargine (Insulin Glargine 100 Unit/Ml 3ml Pen) 15 unit SUBCUT 2100 REPLACED BY [facility] Insulin Human Lispro (Insulin Lispro 100 Unit/Ml 3ml Vial) 0 unit SUBCUT ACHS SARINA; Protocol Labetalol HCl (Labetalol 20 Mg/4 Ml Syringe) 5 mg IV NOW ONE Stop: 11/21/20 01:31 Losartan Potassium (Losartan 50 Mg Tablet) 50 mg PO DAILY REPLACED BY [facility] Naloxone HCl (Naloxone 0.4 Mg/Ml Vial) 0.2 mg IV Q2MIN PRN PRN Reason: Opiate Reversal Non-Formulary Medication (Trospium) 20 mg PO BID REPLACED BY [facility] Ondansetron HCl (Ondansetron 4 Mg/2 Ml Inj) 4 mg IV Q8HR PRN PRN Reason: Nausea And Vomiting Polyethylene Glycol (Polyethylene Glycol 3350 17 Gm Powd.Pack) 17 gm PO DAILY REPLACED BY [facility] Pravastatin Sodium (Pravastatin 20 Mg Tablet) 20 mg PO QPM REPLACED BY [facility] Quetiapine Fumarate (Quetiapine 25 Mg Tablet) 25 mg PO BEDTIME REPLACED BY [facility] Sodium Chloride (Sodium Chloride 0.9% Flush) 10 ml IV PRN PRN PRN Reason: Flush Sodium Chloride (Sodium Chloride 0.9% Flush) 10 ml IV BID SARINA Tamsulosin HCl (Tamsulosin 0.4 Mg Capsule) 0.4 mg PO BID SARINA Discontinued Medications Enoxaparin Sodium (Enoxaparin 40 Mg/0.4 Ml Syringe) 40 mg SUBCUT DAILY SARINA Reevaluation(s) Reevaluation #1: No new issues. Time: 22:58 Consultations Consultation #1: Spoke with hospitalistDao Solis. Will admit patient Time: 22:58 Vital Signs Vital signs: Vital Signs - 8 hr 11/20/20 19:25 11/20/20 19:26 11/20/20 19:27 Temperature 98.6 F Pulse Rate 94 H 96 H Respiratory Rate 15 Blood Pressure 171/81 H 171/81 H Pulse Oximetry 98 96 97 11/20/20 19:30 11/20/20 20:00 11/20/20 20:30 Temperature Pulse Rate 97 H 92 H 90 Respiratory Rate Blood Pressure 155/69 H Pulse Oximetry 97 98 97 11/20/20 21:06 11/20/20 21:30 11/20/20 23:00 Temperature Pulse Rate 89 87 91 H Respiratory Rate Blood Pressure Pulse Oximetry 98 98 96 11/20/20 23:01 11/20/20 23:16 Temperature Pulse Rate 89 Respiratory Rate Blood Pressure 195/79 H Pulse Oximetry 98 96 MDM - Neuro Symptoms/Deficit Differential Diagnosis Differential diagnosis: Likely delirium, cerebrovascular accident, transient cerebral ischemia and other (Altered mental status/UTI) Medical Records Attestation: I reviewed the patient's medical records. Lab Data Attestation: I reviewed the patient's lab results. Result diagrams: 11/20/20 19:57 11/20/20 19:57 Labs: Lab Results 11/20/20 11/20/20 11/20/20 Range/Units 19:57 19:57 19:57 WBC 11.0 (4.5-11.0) X10^3/uL RBC 3.40 L (4.5-5.9) X10^6/uL Hgb 10.8 L (13.5-17.5) g/dL Hct 31.5 L (41-53) % MCV 92.7 (80-100) fL MCH 31.7 (26-34) PG MCHC 34.2 (30-36) % RDW 13.7 (11.6-14.8) % Plt Count 179 (150-400) X10^3/uL Neut % (Auto) 81.0 H (50-75) % Lymph % (Auto) 9.5 L (25-40) % Nye % (Auto) 8.8 (3-14) % Eos % (Auto) 0.4 L (2-4) % Baso % (Auto) 0.3 (0-2) % Neut # (Auto) 8900 H (1614-6755) /uL Lymph # (Auto) 1100 (8781-5038) /uL Nye # (Auto) 1000 H (0-900) /uL Eos # (Auto) 0 (0-450) /uL Baso # (Auto) 0 (0-100) /uL PT 15.0 H (10.1-12.7) SECONDS INR 1.3 (0.9-1.3) APTT 33 (26.4-36.2) SECONDS Sodium 137 (137-145) mmol/L Potassium 3.6 (3.4-5.1) mmol/L Chloride 101 (98-107) mmol/L Carbon Dioxide 29 (22-32) mmol/L BUN 15 (9-20) mg/dL Creatinine 0.88 (0.66-1.25) mg/dL Estimated GFR > 60.0 (>60) mL/min BUN/Creatinine Ratio 17.0 (6-22) Glucose 146 H (80-110) mg/dL Calcium 8.2 L (8.4-10.2) mg/dL Total Bilirubin 0.6 (0.2-1.3) mg/dL AST 18 (17-59) IU/L ALT 9 (<50) IU/L Alkaline Phosphatase 83 (38-126) U/L Total Protein 6.3 (6.3-8.2) g/dL Albumin 3.3 L (3.5-5.0) g/dL Globulin 3.0 (1.7-4.1) g/dL Albumin/Globulin Ratio 1.1 (1.0-2.8) Urine RBC (0-5/HPF) Urine WBC (0-5/HPF) Ur Squamous Epith Cells (0-5/HPF) Urine Bacteria (None) Ur Culture Indicated? U Opiates 300ng/mL cut (Negative) Ur Oxycodone Screen (Negative) Urine Methadone Screen (Negative) Ur Barbiturates Screen (Negative) U Tricyclic Antidepress (Negative) Ur Phencyclidine Scrn (Negative) Ur Amphetamines Screen (Negative) U Methamphetamines Scrn (Negative) Ur MDMA Scrn (Ecstasy) (Negative) U Benzodiazepines Scrn (Negative) Urine Cocaine Screen (Negative) U Marijuana (THC) Screen (Negative) SARS-CoV-2 (PCR) (Negative) 11/20/20 11/20/20 11/20/20 Range/Units 21:01 21:01 21:50 WBC (4.5-11.0) X10^3/uL RBC (4.5-5.9) X10^6/uL Hgb (13.5-17.5) g/dL Hct (41-53) % MCV (80-100) fL MCH (26-34) PG MCHC (30-36) % RDW (11.6-14.8) % Plt Count (150-400) X10^3/uL Neut % (Auto) (50-75) % Lymph % (Auto) (25-40) % Nye % (Auto) (3-14) % Eos % (Auto) (2-4) % Baso % (Auto) (0-2) % Neut # (Auto) (8119-6265) /uL Lymph # (Auto) (1028-1044) /uL Nye # (Auto) (0-900) /uL Eos # (Auto) (0-450) /uL Baso # (Auto) (0-100) /uL PT (10.1-12.7) SECONDS INR (0.9-1.3) APTT (26.4-36.2) SECONDS Sodium (137-145) mmol/L Potassium (3.4-5.1) mmol/L Chloride (98-107) mmol/L Carbon Dioxide (22-32) mmol/L BUN (9-20) mg/dL Creatinine (0.66-1.25) mg/dL Estimated GFR (>60) mL/min BUN/Creatinine Ratio (6-22) Glucose (80-110) mg/dL Calcium (8.4-10.2) mg/dL Total Bilirubin (0.2-1.3) mg/dL AST (17-59) IU/L ALT (<50) IU/L Alkaline Phosphatase (38-126) U/L Total Protein (6.3-8.2) g/dL Albumin (3.5-5.0) g/dL Globulin (1.7-4.1) g/dL Albumin/Globulin Ratio (1.0-2.8) Urine RBC 1-5/hpf (0-5/HPF) Urine WBC 1-5/hpf (0-5/HPF) Ur Squamous Epith Cells 0-1 /hpf (0-5/HPF) Urine Bacteria Few (2-10) H (None) Ur Culture Indicated? Specimen cultured U Opiates 300ng/mL cut Negative (Negative) Ur Oxycodone Screen Negative (Negative) Urine Methadone Screen Negative (Negative) Ur Barbiturates Screen Negative (Negative) U Tricyclic Antidepress Negative (Negative) Ur Phencyclidine Scrn Negative (Negative) Ur Amphetamines Screen Negative (Negative) U Methamphetamines Scrn Negative (Negative) Ur MDMA Scrn (Ecstasy) Negative (Negative) U Benzodiazepines Scrn Negative (Negative) Urine Cocaine Screen Negative (Negative) U Marijuana (THC) Screen Positive H (Negative) SARS-CoV-2 (PCR) Negative (Negative) Point of Care Testing Glucose POC 152 Urine Dip Bedside Urine Glucose Negative Bedside Urine Bilirubin - Negative Bedside Urine Ketone - Negative Urine Specific [place] 1.015 Bedside Urine Occult Blood - Negative Bedside Urine pH 6.5 Bedside Urine Protein - Negative Bedside Urine Urobilinogen - Negative Bedside Urine Nitrite - Negative Bedside Urine Leukocytes + [address] scan - head: Radiologist's Impression: [address] [id number] Scan ReportSigned Patient: Morro Diaz JMR#: [id number]: [id number]/Sex: 80 / MDate of Service: 11/20/20Loc: EDAccession Number: [id number] Procedure: CT Stroke Ordering Provider: Colby Herrera MD PROCEDURE: CT STROKE INDICATIONS: neuro changes TECHNIQUE: Noncontrast 4.5 mm thick angled axial sections acquired from the foramen magnum to the vertex, with coronal reformats. For radiation dose reduction, the following was used: automated exposure control, adjustment of mA and/or kV according to patient size. COMPARISON: [facility], CT, CT HEAD/BRAIN WO CON, 09/21/2020, 9:11. FINDINGS: Image quality: Excellent. CSF spaces: Basal cisterns are patent. No extra-axial fluid collections. The ventricles are stable in size and shape. Brain: No intracranial bleeds or masses. There is cerebral volume loss for age, with resultant ventricular and sulcal prominence. There are periventricular and deep white matter chronic small vessel ischemic changes. There is intracranial internal carotid artery atherosclerosis. Skull and face: Calvarium and visualized facial bones appear intact, without suspicious lesions. Soft tissue stranding and possible subcutaneous cystic lesion seen on image 4/2 in the posterior suboccipital region, unchanged since the prior study. Recommend clinical correlation and direct visual inspection. Sinuses: Visualized sinuses and mastoids are clear. IMPRESSION: No acute intracranial process. Ill-defined inflammatory stranding possible cystic focus in the suboccipital soft tissues as above. Please correlate clinically and with direct visual inspection. This study fulfills neurological imaging criteria for inclusion or exclusion of acute stroke therapies based on available published neurological guidelines. Dictated by: Yunier Rose M.D. on 11/20/2020 at 19:56 Approved by: Yunier Rose M.D. on 11/20/2020 at 19:59 ECG Data Attestation: I personally reviewed and interpreted this ECG as follows: Interpretation: Normal sinus rhythm rate [address] elevation or depression. Normal EKG. MDM Narrative Medical decision making narrative: Appropriate for admission. I did speak with son. Patient is outside of tPA window if this were acute/subacute stroke. Onset 9:00 a.m. this morning. Ongoing for 1 week. No Neurology consult indicated this time. Outside window of any tPA or intervention. Low likelihood of large vessel occlusion. I spoke with family and no surgical intervention desired. Amenable for IV fluids antibiotics and MRI if warranted Stroke Core Measures Exclusion Criteria TPA in CVA: Symptom Onset >3 or 4.5 Hours Discharge Plan Departure Patient Disposition: Admitted as Observation Clinical Impression: Altered mental status Qualifiers: Altered mental status type: unspecified Qualified Code(s): R41.82 - Altered mental status, unspecified Admit Date/Time: 11/20/20 23:30 Admit Provider: Yesi Rose
--- NOTE | 2020-11-20 20:43 | DI.RAD.S_ITS ---
PROCEDURE: XR CHEST 1V INDICATIONS: Dyspnea TECHNIQUE: One view of the chest was acquired. COMPARISON: [facility], CR, XR CHEST 1V, 09/21/2020, 9:03. FINDINGS: Surgical changes and devices: Partially visualized cervical spinal fixation hardware Lungs and pleura: Scattered subsegmental scarring and/or atelectasis. No acute consolidation. No pleural effusions or pneumothorax. Low lung volumes Mediastinum: Mediastinal contours appear normal. Heart size is normal. Bones and chest wall: Severe bilateral shoulder joint degeneration. IMPRESSION: No acute disease. Dictated by: Yunier Rose M.D. on 11/20/2020 at 21:28 Approved by: Yunier Rose M.D. on 11/20/2020 at 21:29
--- NOTE | 2020-11-20 20:43 | DI.CT.S_ITS ---
PROCEDURE: CT ABDOMEN PELVIS WO CON INDICATIONS: Abdominal pain TECHNIQUE: Noncontrast 5 mm thick sections acquired from the diaphragms to the symphysis. 5 mm thick coronal and sagittal reformats were then performed. For radiation dose reduction, the following was used: automated exposure control, adjustment of mA and/or kV according to patient size. COMPARISON: None. FINDINGS: ABDOMEN: Lung bases: Normal. Heart: Mildly enlarged. Mild pericardial effusion. Severe coronary artery calcifications Liver: Normal. Gallbladder: Normal. Bile ducts: Normal. Pancreas: Normal. Spleen: Normal. Adrenals: 1 cm right adrenal adenoma by attenuation characteristics. Left adrenal gland unremarkable. Kidneys: No hydronephrosis. No urolithiasis is identified. The ureters appear nondilated. Stomach: Trace hiatal hernia. Bowel: Moderate stool seen throughout the colon. Other: No free fluid or air. Abdominal nodes: Normal. Aorta and IVC: Normal in size. Scattered vascular calcifications incidentally noted in the aorta. Ventral wall: Normal. PELVIS: Bladder: Normal. Inguinal: No hernia. Pelvic nodes: Normal. Bones: Spondylytic changes and facet arthropathy. No vertebral body compression fracture. IMPRESSION: No urolithiasis. No evidence of urinary obstruction Elsewhere, no acute abnormality Incidentally noted right adrenal adenoma. Trace hiatal hernia Mild cardiomegaly and pericardial effusion. Severe coronary atherosclerosis Dictated by: Yunier Rose M.D. on 11/20/2020 at 21:24 Approved by: Yunier Rose M.D. on 11/20/2020 at 21:28
[2020-11-20 20:47] LABS: Alanine Aminotransferase 9 IU/L (<50); Albumin 3.3 g/dL (3.5-5.0); Albumin Globulin Ratio 1.1 (1.0-2.8); Alkaline Phosphatase 83 U/L (38-126); Aspartate Aminotransferase 18 IU/L (17-59); Bilirubin Total 0.6 mg/dL (0.2-1.3); Blood Urea Nitrogen 15 mg/dL (9-20); Calcium 8.2 mg/dL (8.4-10.2); Carbon Dioxide 29 mmol/L (22-32); Chloride 101 mmol/L (98-107); Estimated Glomerular Filt Rate > 60.0 mL/min (>60); Glucose 146 mg/dL (80-110); HEMOLYSIS < 15 (0-50); Potassium 3.6 mmol/L (3.4-5.1); Sodium 137 mmol/L (137-145); Total Protein 6.3 g/dL (6.3-8.2)
[2020-11-20 21:13] LABS: UR Morphine/Opiate cutoff 300 Negative (Negative); Ur Creatinine Normal (Normal); Ur Specific Gravity Normal (Normal); Urine Amphetamines Negative (Negative); Urine Barbiturates Negative (Negative); Urine Benzodiazepines Negative (Negative); Urine Cocaine Negative (Negative); Urine MDMA Negative (Negative); Urine Methadone Negative (Negative); Urine Methamphetamines Negative (Negative); Urine Oxycodone Negative (Negative); Urine Phencyclidine Negative (Negative); Urine Tetrahydrocannabinol Positive (Negative); Urine Tricyclic Antidepressant Negative (Negative); Urine pH Normal (Normal)
--- NOTE | 2020-11-20 22:49 | PC.NURSE ---
Patient pulled out IV in hand, IV tubing disconnected from IV bag and all over floor. Patient IV site dressed, bleeding controlled. Patient cleaned up and additional IV access obtained.
[2020-11-20 22:54] LABS: Bacteria Urine Few (2-10); Culture Indicated Urine Specimen Cultured; RBC Urine 1-5/HPF (0-5/HPF); Squamous Epithelial Cell Urine 0-1 /HPF (0-5/HPF); WBC Urine 1-5/HPF (0-5/HPF)
[2020-11-20 22:55] LABS: COVID19 - ADMIT (NP swab/PCR) Negative (Negative)
[2020-11-21] VITALS (27 sets, daily range): BP systolic 144–191; BP diastolic 72–113; PULSE 81–90; RESP 16–33; TEMP 36.5–36.8; O2SAT 95–98
--- NOTE | 2020-11-21 | DI.ECHO.S_ITS ---
[facility]---------+ [facility] +---------+ : : [address] : : : : [id number] : : : : Phone: [phone] Echocardiogram Report + + :Name: FLOWER DAN Study Date: 11/21/2020 Height: 68 in : :[facility] ReadingLocation: Weight: 168 lb : : Gender: Male BSA: 1.9 m2 : :: 1940 Age: 80 yrs BP: 179/79 mmHg: :Reason For Study: MENTAL STATUS CHANGES CONCERNING FOR TIA/CVA : :Ordering Physician: Malachi WILSONformed By: Lety Mejia : :Referring: JORDAN WILSON : + + Interpretation Summary Normal sinus rhythm. Normal LV size and wall thickness. There is septal dyssynchrony. Otherwise normal wall motion and left ventricular systolic function. EF is 50-55%. Mild LA enlargement; otherwise normal chamber sizes. Aortic valve is moderately thickened and calcified; it is sclerotic without stenosis. Otherwise no significant valvular abnormalities. Borderline dilated aortic root and mildly dilated ascending aorta. No definitive source of embolism is found. Compared to prior study November 08, 2013 aortic valve sclerosis has progressed. Procedure: A two-dimensional transthoracic echocardiogram with color flow and Doppler was performed. The study quality was technically adequate. Comparison is made with the echocardiogram of 11/08/2013. The patient was in sinus rhythm with heart rates between 83-97 bpm during the exam. Left Ventricle: The left ventricle is normal in size and wall thickness. The ejection fraction is estimated to be 50-55%. There is a significant dyssynchronous contraction pattern, consistent with a conduction abnormality. Diastolic function could not be accurately assessed due to atrial fibrillation. Right Ventricle: The right ventricle is normal in size and function. Atria: The left atrium is mildly dilated. Right atrial size is normal. There is no Doppler evidence for an interatrial shunt. Mitral Valve: The mitral valve is normal in structure and function. There is mild mitral annular calcification. There is mild mitral regurgitation. Aortic Valve: The aortic valve is moderately calcified. There is mild aortic valve sclerosis. There is no aortic valve stenosis. There is trace aortic regurgitation. Tricuspid Valve: The tricuspid valve is normal in structure and function. There is mild tricuspid regurgitation. Pulmonary artery pressures cannot be estimated because of the lack of a measurable TR jet velocity but the IVC suggests a CVP of around 3 mmHg. Pulmonic Valve: The pulmonic valve is not well visualized. There is no pulmonic valvular regurgitation. Great Vessels: The aortic root is borderline dilated. The ascending aorta is mildly enlarged. The IVC is of normal diameter and collapses less than 50% with a sniff. This suggests a right atrial pressure of 8 mm Hg. Pericardium/ Pleura There is no pericardial effusion. There is no pleural effusion. MMode/2D Measurements & Calculations LVIDd: 5.1 cm LVOT diam: 2.1 cm LVIDs: 3.9 cm Ao root diam: 3.8 cm FS: 24.1 % asc Aorta Diam: 3.7 cm IVSd: 0.93 cm Ao Arch Diam (Prox Trans): 3.4 cm LVPWd: 0.88 cm LV velazco. diameter/BSA (cm/m^2): 2.7 LV sys. diameter/BSA (cm/m^2): 2.1 LA A2 area: 23.1 cm2 RA long axis: 5.2 cm LA A4 area: 14.5 cm2 RA area: 15.1 cm2 LA length (vol): 4.4 cm RA vol: 37.4 ml LA vol: 64.2 ml RA : 19.7 ml/m2 LA vol index: 33.8 ml/m2 IVC diam: 0.78 cm RVD1 (basal): 3.0 cm TAPSE: 1.8 cm Doppler Measurements & Calculations Ao V2 max: 179.0 cm/sec LVOT Max Mo: 80.2 cm/sec Ao V2 mean: 121.2 cm/sec LV V1 max P.6 mmHg Ao max P.7 mmHg LV V1 VTI: 15.8 cm Ao mean P.8 mmHg THERESE(I,D): 1.8 cm2 Ao V2 VTI: 32.0 cm THERESE(V,D): 1.6 cm2 sev ratio: 0.49 THERESE indexed to BSA (cm^2/m^2): 0.92 MV E max mo: 108.6 cm/sec PA pr(Accel): 25.9 mmHg MV A max mo: 1.1 cm/sec MV E/A: 96.0 Med Peak E' Mo: 4.7 cm/sec E/E' med: 23.2 Lat Peak E' Mo: 5.6 cm/sec E/E' lat: 19.4 E/e' average: 21.3 MV dec time: 0.13 sec SV(LVOT): 56.1 ml Electronically signed by: Hilda Burton M.D. on [place] Physician:11/21/2020 04:51 PM
--- NOTE | 2020-11-21 00:41 | DI.MRI.S_ITS ---
PROCEDURE: MR STROKE Pre- and post-contrast brain MRI, non-contrast brain MR angiogram, pre- and postcontrast neck MR angiogram INDICATIONS: Mental status changes TECHNIQUE: Brain: Noncontrast axial T1 spin echo, axial T2 fast spin echo, sagittal and axial FLAIR, coronal T2 fast spin echo, axial gradient echo, axial diffusion and ADC through the brain. After the administration of contrast, axial 3D VIBE of the cranial vasculature and brain. Brain MRA: Non-contrast 3-D time of flight MR angiogram, with multiple nmgmvfd-jgxhilwso-karxrmckzo (MIP) reformats performed. Neck MRA: Axial and sagittal TruFISP through the neck. Coronal dynamic MR angiogram during administration of contrast in the arterial and venous phases, with 3-dimenstional odovgyn-zsxdeggpi-ybrafksxcw (MIP) reformats constructed from subtraction images. COMPARISON: [facility], CT, CT HEAD/BRAIN WO CON, 09/21/2020, 9:11. [facility], CT, CT STROKE, 11/20/2020, 19:42. FINDINGS: Image quality: This examination is limited by involuntary motion artifact. BRAIN: CSF spaces: Ventricles are prominent in size. There is particular prominence seen posterior horn of the left lateral ventricle. Basal cisterns are patent. No extra-axial fluid collections. Brain: No intracranial bleeds or mass effects. Villegas-white matter interface is normal. Diffusion weighted images show no acute ischemic insults. Brainstem appears normal. Normal intravascular flow voids are present. No abnormal intracranial enhancement. Generalized brain parenchymal volume loss and chronic small vessel ischemic change can be seen. Skull and face: Calvarial marrow signal is normal. Orbits appear normal. Note is made of bilateral lens replacements. Sinuses: Sinuses and mastoids are clear. BRAIN MR ANGIOGRAM: Anterior circulation: Intracranial internal carotid arteries are normal in size and enhancement. The flow within the paired anterior cerebral arteries is normal and symmetric. The flow within the middle cerebral arteries is normal and symmetric. The anterior communicating artery is seen. No stenoses, occlusions, or aneurysms. Posterior circulation: The visualized portions of the vertebral arteries demonstrate normal caliber, and join to form a normal appearing basilar artery. The flow within the posterior cerebral arteries is normal and symmetric. No stenoses, occlusions, or aneurysms. NECK MR ANGIOGRAM: Carotids: Great vessels demonstrate a conventional anatomy as they arise from the aortic arch. The origins of the common carotid arteries appear patent. The calibers and courses of both common carotid arteries are normal. The bifurcation regions appear normal bilaterally. The internal carotid arteries demonstrate normal course and caliber. Posterior circulation: The origins of the vertebral arteries appear patent. More superior portions of both vertebral arteries demonstrate normal course and caliber, and join to form a normal appearing basilar artery. Miscellaneous: Subclavian arteries appear patent. Pre-contrast images through the neck show no soft tissue abnormalities. IMPRESSION: BRAIN MRI: No findings of acute or subacute infarction can be seen. Note is made of age-appropriate brain parenchymal volume loss and chronic small vessel ischemic changes. The degree of prominence of the lateral ventricles is disc proportion to the degree of sulcal atrophy. Please consider normal pressure hydrocephalus. BRAIN MR ANGIOGRAM: No significant proximal occlusion can be seen. NECK MR ANGIOGRAM: Within the arteries of the neck, no hemodynamically significant stenosis can be seen. Dictated by: Rubens Bliss M.D. on 11/21/2020 at 10:06 Approved by: Rubens Bliss M.D. on 11/21/2020 at 10:12
--- NOTE | 2020-11-21 01:17 | PM.HP.1 ---
History of Present Illness History of Present Illness Date Patient Seen: 11/21/20 Time Patient Seen: 01:15 Chief complaint: Mental status changes concerning for a CVA Narrative: Sidney Ji is a 80-year-old male with dementia, atrial fibrillation, CAD, DM 2, HTN presented to the ED with mental status changes concerning for a CVA. This is the patient's third admission in the past 6 months and he is known to me. The patient is unable to provide me with the history mostly speaking in 1 word sentences and when conducting the review of systems states no to all systems. I spoke to the son CINDY who lives with him, and he stated that he has had about a week and half ago symptoms of physical weakness, being unable to walk, having balance issues, and able to carry his body. Yesterday in the afternoon he started speaking in word salad became more increasingly confused did not really know where he was, and continues to have chronic constipation. He denies that the patient has fallen in the home since he was last admitted 2 months ago. The patient is noted to be a regular marijuana user however the son stated that the patient had not had anything to smoke for 2 days nor was he aware of any changes in the marijuana formulation the patient had purchased from. The patient continues to have presence of THC in his urine. Patient was admitted by me in July for weakness and mental status changes and then again in September for atrial fibrillation. Head CT findings today were ?No acute intracranial process. Ill-defined inflammatory stranding possible cystic focus in the suboccipital soft tissues as above. Please correlate clinically and with direct visual inspection. Abdominal pelvic CT indicated Mild cardiomegaly and pericardial effusion. Severe coronary atherosclerosis.Patient is afebrile, blood pressure 186/88, heart rate 86, respiratory rate 20, oxygen saturation 97% on room air, he weighs 76.5 kg with a BMI of 25.6. White count is normal, hemoglobin and hematocrit is 10.8 and 31.5 respectively, platelet count 179, glucose is 146, calcium 8.2, 8.8 corrected, he has few urine bacteria, THC is positive, and COVID-19 PCR is negative. Patient History Medical History Atrial fibrillation CAD (coronary artery disease) Dementia Diabetes Hyperlipidemia Hypertension Marijuana smoker, continuous Urinary incontinence Surgical History History of coronary artery stent placement Family & Social History Family History (Updated 11/21/20 @ 01:35 by CAROLANN Patel) Other Unknown family medical history Social History: household members spouse,family Prior Living Arrangements House Safety & Behavioral: Feels Safe in Current Yes Environment Been Physically Hurt or No Threatened By a Person Suicidal Ideation Description None Suicide Plan Description No Plan Tobacco & Substance use: Tobacco type cannabis/marijuana Smoking Status Former smoker alcohol intake former alcohol intake frequency 0-2 drinks per day Substance Use Type marijuana Meds Home Medications and Allergies Home Medications Medication Instructions Recorded Confirmed Type buspirone 10 tab PO BID PRN 03/07/18 09/21/20 History carvedilol 12.5 tab PO BID 03/07/18 09/21/20 History citalopram 20 mg PO DAILY 03/07/18 09/21/20 History clopidogrel 75 mg PO DAILY 03/07/18 09/21/20 History pravastatin 20 mg PO QPM 03/07/18 09/21/20 History amlodipine 5 mg PO DAILY 12/28/19 09/21/20 History losartan 50 mg PO DAILY 12/28/19 09/21/20 History metformin 1,000 mg PO BIDAC 12/28/19 09/21/20 History tamsulosin 0.4 mg PO BID 12/28/19 09/21/20 History hydrocodone-acetaminophen 1 tab PO PRN PRN 09/21/20 09/21/20 History polyethylene glycol 3350 [Miralax] 17 g PO DAILY 09/21/20 09/21/20 History quetiapine 25 mg PO BEDTIME 09/21/20 09/21/20 History trospium 20 mg PO BID 09/21/20 09/21/20 History insulin glargine 15 unit SUB-Q QPM #0 ml 09/23/20 09/21/20 Rx Allergies Allergy/AdvReac Type Severity Reaction Status Date / Time Sulfa (Sulfonamide Allergy Mild CHILDHOOD Verified 11/20/20 19:29 Antibiotics) REACTION Review of Systems Review of Systems ROS: Yes All systems reviewed with the patient and are negative except as otherwise documented Exam Vital Signs (past 8 hours): - 11/20/20 19:25 11/20/20 19:26 11/20/20 19:27 Temperature 98.6 F Pulse Rate 94 H 96 H Respiratory Rate 15 Blood Pressure 171/81 H 171/81 H Pulse Oximetry 98 96 97 11/20/20 19:30 11/20/20 20:00 11/20/20 20:30 Temperature Pulse Rate 97 H 92 H 90 Respiratory Rate Blood Pressure 155/69 H Pulse Oximetry 97 98 97 11/20/20 21:06 11/20/20 21:30 11/20/20 23:00 Temperature Pulse Rate 89 87 91 H Respiratory Rate Blood Pressure Pulse Oximetry 98 98 96 11/20/20 23:01 11/20/20 23:16 11/20/20 23:31 Temperature Pulse Rate 89 Respiratory Rate Blood Pressure 195/79 H 164/86 H Pulse Oximetry 98 96 11/21/20 00:15 Temperature 98.0 F Pulse Rate 86 Respiratory Rate 20 Blood Pressure 186/88 H Pulse Oximetry 97 Oxygen Delivery Method Room Air Narrative Exam Narrative: Gen: Alert, oriented, ill appearing 80 y.o. male, NAD HEENT: normocephalic, atraumatic, conjunctiva clear, sclera non-icteric, oral mucosa pink and moist Neck: supple, full ROM, no JVD, trachea is midline Resp: Lungs CTA, non-labored breathing CV: RRR, no murmur or rubs Abd: soft, non-tender, normoactive BTs Skin: no lesions or rashes, dry and intact Neuro: Oriented to self only, redirectable. Speech in short brief sentences Extremities: moves all 4 extremities, is ambulatory, negative Luis M?s sign Psyche: normal mood and affect. Objective Labs Result Diagrams: 11/20/20 19:57 11/20/20 19:57 Labs: Laboratory Results - last 24 hr 11/20/20 11/20/20 11/20/20 19:57 19:57 19:57 WBC 11.0 RBC 3.40 L Hgb 10.8 L Hct 31.5 L MCV 92.7 MCH 31.7 MCHC 34.2 RDW 13.7 Plt Count 179 Neut % (Auto) 81.0 H Lymph % (Auto) 9.5 L [place] % (Auto) 8.8 Eos % (Auto) 0.4 L Baso % (Auto) 0.3 Neut # (Auto) 8900 H Lymph # (Auto) 1100 [place] # (Auto) 1000 H Eos # (Auto) 0 Baso # (Auto) 0 PT 15.0 H INR 1.3 APTT 33 Sodium 137 Potassium 3.6 Chloride 101 Carbon Dioxide 29 BUN 15 Creatinine 0.88 Estimated GFR > 60.0 BUN/Creatinine Ratio 17.0 Glucose 146 H Calcium 8.2 L Total Bilirubin 0.6 AST 18 ALT 9 Alkaline Phosphatase 83 Total Protein 6.3 Albumin 3.3 L Globulin 3.0 Albumin/Globulin Ratio 1.1 Urine RBC Urine WBC Ur Squamous Epith Cells Urine Bacteria Ur Culture Indicated? U Opiates 300ng/mL cut Ur Oxycodone Screen Urine Methadone Screen Ur Barbiturates Screen U Tricyclic Antidepress Ur Phencyclidine Scrn Ur Amphetamines Screen U Methamphetamines Scrn Ur MDMA Scrn (Ecstasy) U Benzodiazepines Scrn Urine Cocaine Screen U Marijuana (THC) Screen SARS-CoV-2 (PCR) 11/20/20 11/20/20 11/20/20 21:01 21:01 21:50 WBC RBC Hgb Hct MCV MCH MCHC RDW Plt Count Neut % (Auto) Lymph % (Auto) [place] % (Auto) Eos % (Auto) Baso % (Auto) Neut # (Auto) Lymph # (Auto) [place] # (Auto) Eos # (Auto) Baso # (Auto) PT INR APTT Sodium Potassium Chloride Carbon Dioxide BUN Creatinine Estimated GFR BUN/Creatinine Ratio Glucose Calcium Total Bilirubin AST ALT Alkaline Phosphatase Total Protein Albumin Globulin Albumin/Globulin Ratio Urine RBC 1-5/hpf Urine WBC 1-5/hpf Ur Squamous Epith Cells 0-1 /hpf Urine Bacteria Few (2-10) H Ur Culture Indicated? Specimen cultured U Opiates 300ng/mL cut Negative Ur Oxycodone Screen Negative Urine Methadone Screen Negative Ur Barbiturates Screen Negative U Tricyclic Antidepress Negative Ur Phencyclidine Scrn Negative Ur Amphetamines Screen Negative U Methamphetamines Scrn Negative Ur MDMA Scrn (Ecstasy) Negative U Benzodiazepines Scrn Negative Urine Cocaine Screen Negative U Marijuana (THC) Screen Positive H SARS-CoV-2 (PCR) Negative Assessment & Plan Assessment & Plan narrative: Morro Diaz will be admitted for a suspected metabolic encephalopathy versus CVA and will undergo a CVA workup. Suspected metabolic encephalopathy -Unknown if this a new and declining dementia baseline -Patient continues to smoke marijuana, may have an interaction with his dementia CVA rule out -MRI and echo in the am -Currently taking aspirin and plavix -PT/OT/ST evaluation and treat Paroxysmal atrial fibrillation, chronic and present on admission -Tele Essential hypertension -Continue home dose of carvedilol 12.5 mg bid, amlodipine 5 mg po daily, losartan 50 mg po daily -IV labetalol for blood pressure with a systolic over 180, permissive hypertension to allow for brain profusion Diabetes type 2 with an A1c of 6.6 in September 2020 -Continue home dose of glargine 15 units at bedtime, low dose correctional insulin at [facility] -Carb controlled diet 10-15 lb weight loss -Consider nutritional consult. VTE prophylaxis: Wells risk score: 0 Enoxaparin 40 mg subQ daily Consults: none Patient is admitted under inpatient status with expected length of stay greater than 2 midnights due to severity of presenting symptoms, risk of adverse event, and complexity of treatment plan. FEN: saline lock, carb controlled diet, BMP and magnesium in the am. Dispo: consideration should be made as to patient's goals of care and the appropriate living situation. Code Status: DNR/DNI as discussed with son, TJ, son and surrogate Scores Wells' Criteria for PE Clinical signs and symptoms of DVT: No PE is #1 Dx or equally likely: No Heart rate > 100: No Immobilization at least 3 days or surg in previous 4 weeks: No History of PE or DVT: No Hemoptysis: No Malignancy w/Treatment within 6 months or palliative: No Wells' PE Score total: 0 Quality VTE Deep Vein Thrombosis/Pulmonary Embolism Present on Admission: No MIPS - Admit I confirm the patient?s Advance Care Plan is present, Code status is documented, Surrogate decision maker is in patient?s record [If Yes, STOP here]: Yes
[2020-11-21] MEDS: carvediloL 12.5 MG TABLET PO ×3 (02:43→20:05)
[2020-11-21] MEDS: LABETALOL 20 MG/4 ML SYRINGE 5 MG IV (02:44)
[2020-11-21] MEDS: BUSPIRONE 5 MG TABLET 10 MG PO (02:45)
[2020-11-21 04:55] LABS: Add Manual Diff / Slide Review NO; Basophils Absolute Auto 0 /uL (0-100); Basophils Percent Auto 0.2 % (0-2); Eosinophils Absolute Auto 0 /uL (0-450); Eosinophils Percent Auto 0.5 % (2-4); Hematocrit 28.4 % (41-53); Hemoglobin 9.9 g/dL (13.5-17.5); Lymphocytes Absolute Auto 1000 /uL (1100-4500); Lymphocytes Percent Auto 9.9 % (25-40); Mean Corpuscular HGB Conc 34.9 % (30-36); Mean Corpuscular Hemoglobin 32.3 PG (26-34); Mean Corpuscular Volume 92.7 fL (80-100); Monocytes Absolute Auto 1000 /uL (0-900); Monocytes Percent Auto 9.5 % (3-14); Neutrophils Absolute Auto 8200 /uL (1500-7000); Neutrophils Percent Auto 79.9 % (50-75); Platelet Count 145 X10^3/uL (150-400); Red Blood Cell Count 3.07 X10^6/uL (4.5-5.9); Red Cell Distribution Width 13.7 % (11.6-14.8); White Blood Cell Count 10.2 X10^3/uL (4.5-11.0)
[2020-11-21 05:14] LABS: BUN Creatinine Ratio 16.5 (6-22); Blood Urea Nitrogen 15 mg/dL (9-20); Calcium 8.2 mg/dL (8.4-10.2); Carbon Dioxide 28 mmol/L (22-32); Chloride 102 mmol/L (98-107); Cholesterol 99 mg/dL (140-199); Estimated Glomerular Filt Rate > 60.0 mL/min (>60); Glucose 195 mg/dL (80-110); HDL Cholesterol 43 mg/dL (40-60); HEMOLYSIS < 15 (0-50); LDL Cholesterol Calculated 41 mg/dL (<100); Potassium 3.3 mmol/L (3.4-5.1); Sodium 136 mmol/L (137-145); Triglycerides 73 mg/dL (35-150)
--- NOTE | 2020-11-21 06:19 | PC.NURSE ---
Ladle Puller Note-Patient admitted to ICU room 231 at 0010, oriented to person and place, mostly states I don't know or uses curse words when he can't verbally make needs known. Initially placed on telemetry which showed SR with multiple PACs, and occasional PVCs, tele DC'd by SOURCER d/t increased agitation and patient pulling it off constantly. BP 191/89, 12.5mg Coreg and 5mg IV labetalol given. Patient has had multiple urinary incontinence and a large loose BM on BSC.
[2020-11-21] MEDS: ASPIRIN EC 81 MG TABLET PO (08:52)
[2020-11-21] MEDS: AMLODIPINE 5 MG TABLET PO (08:52)
[2020-11-21] MEDS: CLOPIDOGREL 75 MG TABLET PO (08:53)
[2020-11-21] MEDS: CITALOPRAM 10 MG TABLET 20 MG PO (08:53)
[2020-11-21] MEDS: LOSARTAN 50 MG TABLET PO (08:53)
[2020-11-21] MEDS: TAMSULOSIN 0.4 MG CAPSULE PO ×2 (08:55→20:05)
[2020-11-21] MEDS: SODIUM CHLORIDE 0.9% FLUSH 10 ML IV ×2 (08:55→20:19)
[2020-11-21] MEDS: INSULIN LISPRO 100 UNIT/ML 3ML VIAL SUBCUT ×4 (09:41→21:04)
[2020-11-21] MEDS: ENOXAPARIN 40 MG/0.4 ML SYRINGE SUBCUT (09:44)
--- NOTE | 2020-11-21 11:13 | CM.DANOTE ---
Discharge Planning/Care Management DCP: assessment: Case received, EMR reviewed and including prior recent admission info. Spoke then with pt's Hemalatha: [phone] and son CINDY: [phone] by phone. Introduced self and role. Pt is a 80 year old male who admitted last night to care of hospitalist team. PCP: Reji Patterson Payer: Medicare and [employer]. TJ stated that he is continuing to work on the Medicaid/[place] process. Pt is cared for by spouse Hemalatha, primarily in a supportive role. CINDY states I am the heavy spinning bath person, I do the physical assisting. Daughter Osmin/Dru, manages the medications and takes pt to all needed appointments. Shefali ROSA is currently seeing pt and did call the agency to discuss as they will be closing the agency effective December 17. PT Yeny is seeing pt today. Reports he is at his usual baseling. She says she has worked with pt in the prior IH admissions of this year. P: at this time expect home with resumption of [facility] and family care. did clarify with TJ pt's current marijuana use as this ? came up in Rounds. He states the the pt buys this legally, he uses it in joint form and takes 3 hit before bed to help him relax and go to sleep. He does not use this every night. He does not use it at any other time. Will be following up prn. Will update Dr. Thomas when she is available CM Discharge Assessment Start: 11/21/20 11:09 Freq: Status: Active Protocol: Document 11/21/20 11:09 ITV (Rec: 11/21/20 11:12 ITV [id number]) Discharge Planning Assessment Advance Directives? No Advance Directives on File No History Provided By Family Member,Medical Record Has Patient been admitted in last 30 No days? Comment recent admits: 09/22-09/23/20 and 07/29-07/31/20 Prior Living Arrangements House Household Members spouse,family Comment pt lives with spouse Hemalatha and son CINDY. Type of transportation used prior to Relies on Others admit Independent with ADL's No Is patient alert and oriented? No Patient/Family Preference Home with Home Health Comment is open to [facility] services ( currently RN only) Review Status In Process
--- NOTE | 2020-11-21 11:16 | PT.IIE ---
Addendum entered and electronically signed by Yeny Mayo PT 11/21/20 12:14: POC originally written for 2x/day as reflected in this note. This was in error. POC has been updated to 1x/day. Original Note: Current Diagnoses Cannabis use, unspecified, uncomplicated (11/20/20) Surgical History (Last Reviewed 11/21/20 @ 01:35 by CAROLANN Patel) History of coronary artery stent placement Medical History (Last Reviewed 11/21/20 @ 01:35 by CAROLANN Patel) Atrial fibrillation CAD (coronary artery disease) Dementia Diabetes Hyperlipidemia Hypertension Marijuana smoker, continuous Urinary incontinence Physical Therapy Inpatient Evaluation/Re-Eval M1 PT/OT-IP Prior Functional Status Start: 11/21/20 09:05 Freq: NEEDED Status: Active Protocol: Document 11/21/20 11:16 AW (Rec: 11/21/20 12:02 AW [id number]) Medical Review Prior Functional Status Medical History Reviewed Yes Communication Pt has dementia with sundowning. Per EMR and family input, pt's clearest hours tend to be [id number]. Pt is able to make needs known. Mobility and Gait Modified independent with use of FWW at home. Pt has a transport wheelchair for appointments. Activities of Daily Living and IADL's Per EMR, pt's son and daughter provide assist with all ADL's . Pt does not shower and refuses female bath aides. He is frequently incontinent. He eats without assist. Prior Functional Level (Other details) Pt falls frequenty. Social History Household Members spouse,family Living Arrangements House Number of Floors (Floors) 3 or More Floors Number of Stairs To Enter/Railing? 5 CHLOE with B rails. Pt goes up 4 steps with B rails to access the living room level. He then descends 4 steps with B rails to access his bedroom. Home Environment Standard Height Toilet,Tub/ Shower Home Equipment Front Wheel Walker,Straight Cane,Shower Seat with Backrest ,Grab Bars Near Toilet,Grab Bars In Shower Additional Social History Comment Social history obtained from EMR as pt is a poor historian and family is not present during evaluation. Pt lives with his spouse, Hemalatha, in [facility]. Their son, CINDY, also lives with them and does all the heavy lifting. Daughter, Osmin is heavily involved in daily care , doing more of the coordination and medication management. JAMA application is in process. Pt is active with home health currenty. M2 PT-IP Current Condition Start: 11/21/20 09:05 Freq: NEEDED Status: Active Protocol: Document 11/21/20 11:16 AW (Rec: 11/21/20 12:02 AW [id number]) Physical Therapy Current Condition Current Condition Evaluation Date 11/21/20 Treatment Diagnosis NPH vs metabolic encephalopathy; confusion; impaired mobility and gait Onset Date 11/20/20 Precautions Other Precautions falls M3 PT-IP Subjective Start: 11/21/20 09:05 Freq: NEEDED Status: Active Protocol: Document 11/21/20 11:16 AW (Rec: 11/21/20 12:02 AW [id number]) Subjective Physical Therapy Visit Type Type Initial Evaluation Visit Start Time 10:56 Visit Stop Time 11:16 Total Visit Minutes 20 Notes Pt just returning from MRI and requesting to use the commode . Number of SALES MARKETING MANAGER Visits 0 Physical Therapy Visit Comments Patient Comments What the f do you want me to do? Patient Goals Unable to ascertain Therapy Pain Assessment Pain When Pain Assessed During Mobility Pain Present Pain Present Denied Pain M4 PT-IP Mobility and Gait Start: 11/21/20 09:05 Freq: NEEDED Status: Active Protocol: Document 11/21/20 11:16 AW (Rec: 11/21/20 12:02 AW [id number]) PT-Transfer Assessment Sit to and From Stand Sit to and from Stand Minimal Assistance,1 Person Assistance,Use of Upper Extremities Equipment Transfer Assistive Device Gait Belt,Front Wheeled Walker Orthotic/Prosthetic Devices or Brace: No Transfers Transfer Destination Chair,Toilet,Bedside Commode Transfer Technique Stand Step Pivot Transfer Ability Level of Assist Contact Guard Assistance, Minimal Assistance,1 Person Assistance,Use of Upper Extremities Comments Mobility Comments Pt was in wheelchair upon return from MRI as PT arrived. He stood from the wheelchair min A x 1 and used the FWW to transfer to [facility] min assist and max cues for sequencing, total assist for briefs management. He sat on the commode but complained that it was too uncomfortable. PT provided min assist for pt to stand and min assist to ambulate 20 feet to the toilet . Pt was easily distracted and agitated but just as easily redirectable. In the washroom, pt responded well to verbal cues to use the grab bar to assist with CGA transfer, once again needing total assist to manage his briefs. Pt was unable to void. He stood min assist and used FWW to ambulate to the chair. Pt was left with chair alarm armed as OUTSOLE CASER arrived. Gait Assessment Gait Gait Assistance Required: Contact Guard Assist,Minimum Assistance Distance (Feet) 20 Assistive Devices Assistive Device Gait Belt,Front Wheeled Walker Orthotic/Prosthetic Devices or Brace: No Gait Deviations General Gait Pattern Antalgic,Decreased Stride Length,Decreased Feet Clearance,Flexed Trunk,Lateral Trunk Lean,Narrow Based Gait Factors Limiting Gait Function Factors Limiting Gait Function Decreased Strength,Difficulty Following Directions,Limited Range of Motion,Poor Balance, Poor Safety Awareness Comments Gait Comments Pt presents with bilateral genu varum (right more pronounced than left) and ambulates with decreased knee extension. Cues and assist required due to pt impulsivity . Stair Climbing Assessment Comments Stair Climbing Comments Not assessed. PT-Balance Assessment Sitting Balance and Reactions Static Sitting Balance Ability Fair Dynamic Sitting Balance Ability Fair Standing Balance and Reactions Static Standing Balance Ability Fair Dynamic Standing Balance Ability Fair Device Used FWW M5 PT-IP Objective Assessments Start: 11/21/20 09:05 Freq: NEEDED Status: Active Protocol: Document 11/21/20 11:16 AW (Rec: 11/21/20 12:02 AW [id number]) Orientation Orientation/Cognition Level of Alertness Confusional State Orientation Name Language Function Ability No Deficits Noted Safety Awareness Decreased Safety Awareness Memory Description 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 Gross Range of Motion Lower Extremity ROM Assessment Bilaterally Impaired Strength Lower Extremity Strength Assessment Bilaterally Impaired Hip 3+/5 Knee 3+/5 Coordination Assessment Assessment Coordination Comments Unable to assess due to cognition. Sensation Assessment Comments Sensation Comments Unable to assess due to cognition. M6 PT-IP Treatment Start: 11/21/20 09:05 Freq: NEEDED Status: Active Protocol: Document 11/21/20 11:16 AW (Rec: 11/21/20 12:02 AW [id number]) Physical Therapy Treatment Education Education Provided Safety M7 PT-IP Assessment and Plan Start: 11/21/20 09:05 Freq: NEEDED Status: Active Protocol: Document 11/21/20 11:16 AW (Rec: 11/21/20 12:02 AW [id number]) PT Summary Assessment and Plan Potential Rehabilitation Potential Fair Status of Condition at Evaluation Stable Summary Impairments ROM,Strength,Balance,Cognition ,Bed Mobility,Transfers,Gait Assessment Summary AJ is a 80 yo man with dementia who is admitted with reports of increased confusion . MRI is negative for CVA but suggestive of normal pressure hydrocephalus. He requires assist for all ADL's at baseline and uses a FWW for modified independent household mobility. Daughter and son coordinate care for the pt and the son lives with the pt to provide physical assist. On evaluation, pt requires CGA to min assist with transfers and ambulation using FWW. This is consistent with his baseline established during previous admissions. Pt has active home health therapy at home and would benefit from resumed services at discharge. With supports already in place, pt will be safe to discharge home once medically stable. Goals Bed Mobility Goal Standby Assistance Transfer Goal Standby Assistance,Front Wheeled Walker Gait Goal Standby Assistance,Front Wheel Walker Gait Distance 75 Other Goals - up/down 5 steps with B rails SBA Frequency of Treatment Frequency Of Treatment Twice a Day Treatment Plan Physical Therapy Treatment Plan Bed Mobility Training,Transfer Training,Gait Training, Therapeutic Exercise,Balance Retraining,Discharge Planning, Neuromuscular Re-ed Other Recommendations and Next Treatment mobility as tolerated Focus Precautions Other Precautions falls Recommendations To Nursing Amount of Assist Needed 1 Person Assist Discharge Recommendations PT Discharge Recommendations Home with 24/ Assist Available,Home Health Transportation Needs at Discharge Private Vehicle
--- NOTE | 2020-11-21 11:35 | ST.IPSLE ---
Visit Care Team Role Provider Type Reji Patterson MD Primary Care Provider Non-Staff Specialty: Internal Medicine Address: [address] [place] [address], [id number] Email: Colby Herrera MD Emergency Provider Physician Referring Provider Specialty: Emergency Medicine Address: [address] [place] [address], [phone] Email: [email or web address] Admit Provider Physician Attending Provider Specialty: Internal Medicine Address: [address] [place] [address], [id number] Email: [email or web address] Medical History (Last Reviewed 11/21/20 @ 01:35 by CAROLANN Patel) Atrial fibrillation (Medical) On Plavix CAD (coronary artery disease) (Medical) Dementia (Medical) With increasing behavioral issues Diabetes (Medical) Type 2, on insulin Hyperlipidemia (Medical) Hypertension (Medical) Marijuana smoker, continuous (Medical) Urinary incontinence (Medical) Speech-Language Pathology Speech/Language Eval [employer]TER Adult Cognitive Linguistic Eval Start: 11/21/20 14:22 Freq: Status: Active Protocol: Document 11/21/20 14:23 TLC (Rec: 11/21/20 14:26 [facility] [id number]) Adult Cognitive Linguistic Evaluation Session Time Visit Start Time 11:16 Visit Stop Time 11:35 Total Visit Minutes 19 Visit Information Visit Number 1 Setting Assessment Location Acute Care Visit Type Note Type Initial evaluation Next Note Type Next Note Type Treatment Note Patient Information Identification Type Name Medical History Patient with new onset word salad. Hearing Hearing Level Impaired Subjective Patient Report Patient sitting up in chair in room. Agreed to speech evaluation and was cooperative . Informal Assessment Receptive Language Normal Yes Expressive Language Normal No Expressive Language Impairment(s) Expression of complex thoughts /ideas Pragmatic Language Normal No Pragmatic Language Impairment(s) Flat affect Speech Normal Yes Cognition Normal No Cognitive Impairment(s) Orientation Findings/Results Language Function Mildly impaired Findings Informal assessment of language abilities reveal mild impairments in expressive language characterized by delayed response time, some difficulty with word finding and trouble expressing complex thoughts/ideas. Patient was able to answer simple yes/no questions, complete phrases, name common objects around his room and follow simple directions without difficulty. Patient was not oriented to place stating he was not at a hospital. Cognitive Communication Deficits Self-awareness of Cognitive- Limited awareness (minimal Communication Deficits appreciation without specificity) Concomitant Factors Concomitant Factors Hearing loss Impact on Functioning Activity Limits/Particip.Rest. Mild: General Tasks and Demands Household Tasks Interpersonal Interactions Community Safety Risks Sev: Being Left Alone at Home Reacting to Emergency Managing Medication Traveling Alone in Community Prognosis Prognosis Fair Based on Comorbidities Comment patient has dementia at baseline Plan of Care Speech-Language Treatment Yes Patient/Caregiver Education Patient requires further education/training,Family/ caregivers require further education/training Short Term Goals Morro will answer orientation questions with 75% accuracy. Morro will complete word finding exercises with 75% accuracy. Discharge Recommendations [facility] facility,Home with Home Health
--- NOTE | 2020-11-21 12:44 | PC.NURSE ---
Dayshift Note: Pt is confused, oriented to self only. Impulsive and irritable at times. Pt with dementia at baseline, able to follow commands, easily redirected. Denies pain, except when sitting on commode. Pt remains on RA, SPO2 WNL. Pt denies SOB/CP/chest pressure. Lungs CTA. Pt with paroxysmal a-fib. Pt with HRR. Telemetry d/heather d/t agitation. BP elevated but pt is taking several anti-hypertensives. Pt with multiple loose stools. Not given miralax this am. Pt is incontinent of stool. Pt with adequate appetite. Pt uses FWW, 1 person assist. Needs cueing for mobillity. MRI done, echo-cardiogram done. Pt's at bedside. Dr. Thomas notified that pt is at bedside. Call light within reach, but pt is not using it consistently.
--- NOTE | 2020-11-21 13:43 | OT.IP.EVAL ---
Past Medical History (Last Reviewed 11/21/20 @ 01:35 by CAROLANN Patel) Atrial fibrillation CAD (coronary artery disease) Dementia Diabetes Hyperlipidemia Hypertension Marijuana smoker, continuous Urinary incontinence Surgical History (Last Reviewed 11/21/20 @ 01:35 by CAROLANN Patel) History of coronary artery stent placement Occupational Therapy Inpatient Evaluation/Re-Eval M1 PT/OT-IP Prior Functional Status Start: 11/21/20 09:05 Freq: NEEDED Status: Active Protocol: Document 11/21/20 13:50 [facility] (Rec: 11/21/20 14:11 [facility] [id number]) Medical Review Prior Functional Status Medical History Reviewed Yes Communication Pt has dementia with sundowning. Per EMR and family input, pt's clearest hours tend to be [id number]. Pt is able to make needs known. Mobility and Gait Modified independent with use of FWW at home. Pt has a transport wheelchair for appointments. Activities of Daily Living and IADL's Per EMR, pt's son and daughter provide assist with all ADL's . Pt does not shower and refuses female bath aides. He is frequently incontinent. He eats without assist. Pt's state she does all his dressing needs , and pt able to assist 50% for toileting and showering needs. Prior Functional Level (Other details) Pt falls frequently. Social History Household Members spouse,family Living Arrangements House Number of Floors (Floors) 3 or More Floors Number of Stairs To Enter/Railing? 5 CHLOE with B rails. Pt goes up 4 steps with B rails to access the living room level. He then descends 4 steps with B rails to access his bedroom. Home Environment Standard Height Toilet,Tub/ Shower Home Equipment Front Wheel Walker,Straight Cane,Shower Seat with Backrest ,Grab Bars Near Toilet,Grab Bars In Shower Additional Social History Comment Social history obtained from EMR as pt is a poor historian and family is not present during evaluation. Pt lives with his spouse, Hemalatha, in [facility]. Their son, CINDY, also lives with them and does all the heavy lifting. Daughter, Osmin is heavily involved in daily care , doing more of the coordination and medication management. JAMA application is in process. Pt is active with home health currenty. M2 OT-IP Current Condition Start: 11/21/20 13:48 Freq: Status: Active Protocol: Document 11/21/20 13:50 [facility] (Rec: 11/21/20 14:11 [facility] [id number]) Occupational Therapy Current Condition Current Condition Evaluation Date 11/21/20 Treatment Diagnosis Altered mental status, decreased mobility Diagnosis Onset Date 11/20/20 M3 OT- IP Subjective and Pain Start: 11/21/20 13:48 Freq: Status: Active Protocol: Document 11/21/20 13:50 [facility] (Rec: 11/21/20 14:11 [facility] [id number]) OT- Subjective Occupational Therapy Visit Type Visit Start Time 12:52 Visit Stop Time 13:43 Total Visit Minutes 51 Occupational Therapy Visit Comments Patient Comments Pt wanting to use the bathroom . Patient/Caregiver Goals Pt's wanting pt to get stronger and be able to walk better. OT Pain Assessment Pain When Pain Assessed At Rest Pain Present Pain Present Denied Pain M4 OT- IP ADL's Start: 11/21/20 13:48 Freq: Status: Active Protocol: Document 11/21/20 13:50 [facility] (Rec: 11/21/20 14:11 [facility] [id number]) OT [id number] Comments OT Self-Feeding Comments NOt at meal time. OT ADL-Grooming Comments OT Grooming Comments Not performed. Per pt refuses to brush his teeth. OT ADL-Dressing General Eval Lower Body Dressing Ability Maximum Assistance Areas Needing Assistance Underpants/Brief,Socks Comments OT Dressing Comments Assist to bertram brief over his feet and up over his hips. Pt able to bertram right sock only at this time. Per pt usually assist with 50%. OT ADL-Toileting General Evaluation Toileting Ability Total Assistance Areas Needing Assistance Manage Clothing,Perform Perineal Hygiene Comments OT Toileting Comments Dependent at this time due to not able to get to the toilet in time and needing to be cleaned up. OT ADL-Bathing Bathing Type Bathing Type Shower General Evaluation Bathing Ability Maximal Assistance Areas Needing Assistance Wash/Dry Back,Wash/Dry Perineal Area,Wash/Dry Lower Extremities Comments OT Bathing Comments Pt able to assist with face and arms while seated on the shower chair. Heavy use of grab bar to corrugator machine operator the shower and CGA-DIANE for balance while practical nursing teacher able to assist for pericare needs. M5 OT- IP IADL's Start: 11/21/20 13:48 Freq: Status: Active Protocol: Document 11/21/20 13:50 [facility] (Rec: 11/21/20 14:11 [facility] [id number]) OT-Instrumental Activities of Daily Living Home Safety Awareness Awareness of Need for Assistance at Home Decreased Awareness Ability to Problem Solve Emergency Unable to Problem Solve Situations Medication Management Medication Management Caregiver Administers Money Management Money Management Caregiver Provides Assistance Meal Preparation Meal Preparation Caregiver Provides Assist Environmental Monitoring Specialist Environmental Monitoring Specialist Caregiver Provides Assist Driving Driving Concerns Identified Regarding Safety M6 OT- IP Functional Cognition Start: 11/21/20 13:48 Freq: Status: Active Protocol: Document 11/21/20 13:50 [facility] (Rec: 11/21/20 14:11 [facility] [id number]) Cognitive Factors Limiting Selfcare Function Cognitive Ability Level of Alertness Alert,Confusional State Patient Orientation Name Attention Span Ability Capable of Focused Attention, Unable to Focus Ability to Follow Commands Able to Follow One Step Commands with Increased Time, Able to Follow One Step Commands with Repetition Safety Awareness Underestimates Need for Assistance Problem Solving Ability Unable to Identify Errors, Needs Assist to Identify Solutions Cognitive Comments Cognitive Assessment Comments Pt having trouble getting the words out. Pt needing concrete vc to follow. Pt easily distracted and a bit impulsive . Pt having trouble getting the words out to identify body parts touched during light touch. OT- Vision and Hearing OT- Hearing Assessment OT- Hearing Assessment WFL OT- Vision Assessment Visual Acuity Glasses For Reading M7 OT- IP Mobility and Balance Start: 11/21/20 13:48 Freq: Status: Active Protocol: Document 11/21/20 13:50 [facility] (Rec: 11/21/20 14:11 [facility] [id number]) OT-Transfer Assessment Sit to and From Stand Sit to and from Stand Moderate Assistance Transfers Transfer Ability Moderate Assistance,Maximum Assistance,1 Person Assistance ,2 Person Assistance Technique Transfer Destination Bed,Toilet Transfer Technique Stand Step Pivot Devices Transfer Assistive Devices Gait Belt,Front Wheeled Walker Comments Mobility Comments Pt needing MODA X 1 to stand to FWW, assist to help guide the FWW and assist for balance . As pt tires needing another person to assist for safety. Pt tending to lean to the lean and assist to help guide the FWW to the right. OT- Gait Assessment Comments Gait Ability Comments 2 person assist for safety at this time as pt's mobility various greatly from 1 person assist to two. OT- Balance Assessment Sitting Balance and Reactions Static Sitting Balance Ability Good Dynamic Sitting Balance Ability Fair Standing Balance and Reactions Static Standing Balance Ability Poor M8 OT- IP Objective Assessments Start: 11/21/20 13:48 Freq: Status: Active Protocol: Document 11/21/20 13:50 [facility] (Rec: 11/21/20 14:11 [facility] [id number]) OT Gross Range of Motion Upper Extremity Range of Motion ROM Impairments Grossly WFL and able to assist for ADl needs. OT Strength Comments Strength Comments BUE 4/5 OT- Coordination Assessment Upper Extremity Finger to Nose Test Right UE Impaired Comments Coordination Comments Right finger off by 3mm, left finger unable to touch the tip of his nose and needing to re-correct himself two times before able to touch his nose. OT Sensation Assessment Comments Summary Comments Intact for light touch. M9 OT- IP Assessment and Plan Start: 11/21/20 13:48 Freq: Status: Active Protocol: Document 11/21/20 13:50 [facility] (Rec: 11/21/20 14:11 [facility] [id number]) OT Summary Assessment and Plan Potential Rehabilitation Potential Good Analytic Complexity at Evaluation Moderate Summary OT Impairments Strength,Balance,Functional Cognition,Functional Mobility, Toileting,Bathing,Shower Transfers,Activity Tolerance Progress Towards Goals Slow Progress due to Medical Issues,Slow Progress due to Cognition Assessment Summary Pt MOD complexity due to now needing extensive assist for Adl and mobility needs, decreased ability to get his words out, decreased balance, and is a high fall risk at this time. Pt would benefit from skilled rehab but is OBS status at this time. Pt will need 24/7 assist at home and at times needing two person assist for his needs. Home health would beneficial for the pt. Goals Grooming Goal Moderate Assistance Toileting Goal Moderate Assistance Bathing Goal Moderate Assistance Toilet Transfer Goal Contact Guard Assistance Shower Transfer Goal Minimal Assistance Patient/Caregiver Education Goal Caregiver Independent Assisting Patient Days to Meet Goals 10 Frequency of Treatment Frequency Of Treatment Once a Day Treatment Plan OT Treatment Plan ADL Training,Functional Cognition Training,Functional Mobility,Patient/Family Education,Discharge Planning Other Treatment Recommendations and Next Pt to be able to corrugator machine operator Treatment Focus front of the sink for 2 minutes with CGA. Discharge Recommendations OT Discharge Recommendations Home with 24/7 Assist Available,Home Health Transportation Needs at Discharge Private Vehicle
--- NOTE | 2020-11-21 14:03 | DIET.PN ---
Dietary Progress Note Assessment: 80y M c hx of dementia, atrial fibrillation, CAD, DM 2, HTN who presented to the ED with mental status changes concerning for CVA. Per chart review pt has had 16% unintentional weight loss over the past 1y (non-severe) secondary to eating small breakfast and lunch and no dinner. Pt takes 10 U lantus to manage DM2 and takes Remeron for appetite stimulation. HT: 172.72cm WT: 76.5kg (pt is weight stable since last admit in 10/06) UBW: 90.7kg (12/2019) BMI: 25.6 Labs: A1c: 6.6, K+ 3.3 L Glucose: 146, 192 Nutrition Diagnosis: none at this time Interventions: 1. ONS glucerna bid to support easy PO intake to support strength Diet Order: CCD Monitoring/Evaluations: weight, PO's, ONS acceptance
[2020-11-21] MEDS: PRAVASTATIN 20 MG TABLET PO (16:58)
[2020-11-21] MEDS: QUETIAPINE 25 MG TABLET PO (20:05)
[2020-11-21] MEDS: ATORVASTATIN 20 MG TABLET 80 MG PO (20:05)
[2020-11-21] MEDS: INSULIN GLARGINE 100 UNIT/ML 3ML PEN 15 UNIT SUBCUT (21:04)
--- NOTE | 2020-11-21 22:33 | PC.NURSE ---
Patient had an uneventful evening. Pt left to go home at 1450. Patient sitting up in the chair at the beginning of the shift, with frequent moments of confusion and impulsiveness. Chair alarm in place and necessary. Patient oriented to self and understood he's in the hospital, but he would easily forget instruction to stay in the chair, or what he got out of the chair for. Around 1700, pt ambulated with walker and standby staff assist to the bed. Patient has since been calm and cooperative. Pt ate about 25% of his dinner and is taking in PO fluids well. Pt had one smear brown BM in brief. Gown and brief changed, pt brushed his teeth and washed his face before bed. Vital signs have been stable all shift. Pt has been sleeping on and off since 2029. Bed alarm on.
[2020-11-22] VITALS: BP 157/83; PULSE 83; RESP 15; TEMP 36.1; O2SAT 94
[2020-11-22 04:30] VITALS: BP 157/72; PULSE 88; RESP 14; TEMP 36.3; O2SAT 96
[2020-11-22 08:00] VITALS: BP 149/84; PULSE 87; RESP 18; TEMP 36.8; O2SAT 98
--- NOTE | 2020-11-22 09:23 | PT.IPTN ---
Physical Therapy Treatment Note M2 PT-IP Current Condition Start: 11/21/20 09:05 Freq: NEEDED Status: Active Protocol: Document 11/22/20 09:28 MA (Rec: 11/22/20 09:41 MA [id number]) Physical Therapy Current Condition Current Condition Evaluation Date 11/21/20 Treatment Diagnosis NPH vs metabolic encephalopathy; confusion; impaired mobility and gait Onset Date 11/20/20 Precautions Other Precautions falls M3 PT-IP Subjective Start: 11/21/20 09:05 Freq: NEEDED Status: Active Protocol: Document 11/22/20 09:28 MA (Rec: 11/22/20 09:41 MA [email or web address]) Subjective Physical Therapy Visit Type Type Treatment Note Visit Start Time 09:00 Visit Stop Time 09:23 Total Visit Minutes 23 Physical Therapy Visit Comments Patient Comments Pt willing to work with PT if he can get pants on and go to the bathroom Patient Goals Unable to ascertain Therapy Pain Assessment Pain When Pain Assessed At Rest Pain Present Pain Present Denied Pain M4 PT-IP Mobility and Gait Start: 11/21/20 09:05 Freq: NEEDED Status: Active Protocol: Document 11/22/20 09:28 MA (Rec: 11/22/20 09:41 MA [id number]) PT-Transfer Assessment Sit to and From Stand Sit to and from Stand Minimal Assistance,1 Person Assistance,Use of Upper Extremities Equipment Transfer Assistive Device Gait Belt,Front Wheeled Walker Orthotic/Prosthetic Devices or Brace: No Transfers Transfer Destination Chair,Toilet Transfer Technique Stand Step Pivot Transfer Ability Level of Assist Contact Guard Assistance, Minimal Assistance,1 Person Assistance,Use of Upper Extremities Comments Mobility Comments Pt was in room chair upon arrival. He requested getting pants on and using the bathroom, but pt's pants were found wet in a bag. Explained to pt he needs to call family to get a new pair of pants when they pick him up. Pt was able to stand with cues to push with UEs off chair arm with Min Ax1. He was then CGA walking 10 feet to bathroom and CGA to transfer to commode with cues to hold the bathroom grab bar. Pt was able to pass soft stool, RN informed. Pt was CGA for sit<> stand from commode. Gait Assessment Gait Gait Assistance Required: Contact Guard Assist,1 Person Assist Distance (Feet) 40 Assistive Devices Assistive Device Gait Belt,Front Wheeled Walker Orthotic/Prosthetic Devices or Brace: No Gait Deviations General Gait Pattern Antalgic,Decreased Stride Length,Decreased Feet Clearance,Flexed Trunk,Lateral Trunk Lean,Narrow Based Gait Factors Limiting Gait Function Factors Limiting Gait Function Decreased Strength,Difficulty Following Directions,Limited Range of Motion,Poor Balance, Poor Safety Awareness Comments Gait Comments Pt was able to ambulate CGA 10 ft to bathroom and then 30 feet from bathroom to outside of room and back to room chair . Just after leaving the room, pt stated he was fatigued and felt he couldn't go much further. Had pt turn around and walk back to room chair at that point, still CGA. Stair Climbing Assessment Comments Stair Climbing Comments Not assessed. PT-Balance Assessment Sitting Balance and Reactions Static Sitting Balance Ability Fair Dynamic Sitting Balance Ability Fair Standing Balance and Reactions Static Standing Balance Ability Fair Dynamic Standing Balance Ability Fair Device Used FWW M5 PT-IP Objective Assessments Start: 11/21/20 09:05 Freq: NEEDED Status: Active Protocol: Document 11/21/20 11:16 AW (Rec: 11/21/20 12:02 AW [id number]) Orientation Orientation/Cognition Level of Alertness Confusional State Orientation Name Language Function Ability No Deficits Noted Safety Awareness Decreased Safety Awareness Memory Description 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 Gross Range of Motion Lower Extremity ROM Assessment Bilaterally Impaired Strength Lower Extremity Strength Assessment Bilaterally Impaired Hip 3+/5 Knee 3+/5 Coordination Assessment Assessment Coordination Comments Unable to assess due to cognition. Sensation Assessment Comments Sensation Comments Unable to assess due to cognition. M6 PT-IP Treatment Start: 11/21/20 09:05 Freq: NEEDED Status: Active Protocol: Document 11/21/20 11:16 AW (Rec: 11/21/20 12:02 AW [id number]) Physical Therapy Treatment Education Education Provided Safety M7 PT-IP Assessment and Plan Start: 11/21/20 09:05 Freq: NEEDED Status: Active Protocol: Document 11/22/20 09:28 MA (Rec: 11/22/20 09:41 MA [email or web address]) PT Summary Assessment and Plan Potential Rehabilitation Potential Fair Status of Condition at Evaluation Stable Summary Impairments ROM,Strength,Balance,Cognition ,Bed Mobility,Transfers,Gait Assessment Summary AJ was able to complete ~40 ft total today during gait training but refused to complete stair training this session. He needed Min Ax1 to get up from room chair but was able to ambulate CGA with FWW and gait belt. Pt could transfer off commode CGA with cues to use grab bar. Pt was able to pass a soft stool and RN was informed. Pt then completed ~15 feet before informing [employer] he was fatigued and felt he couldn't walk much further. Pt walked ~15ft back to room chair where he was left with RN in room. Chair alarm donned and all needs within reach. Goals Bed Mobility Goal Standby Assistance Transfer Goal Standby Assistance,Front Wheeled Walker Gait Goal Standby Assistance,Front Wheel Walker Gait Distance 75 Other Goals - up/down 5 steps with B rails SBA Days to Meet Goals 8 Frequency of Treatment Frequency Of Treatment Once a Day Treatment Plan Physical Therapy Treatment Plan Bed Mobility Training,Transfer Training,Gait Training, Therapeutic Exercise,Balance Retraining,Discharge Planning, Neuromuscular Re-ed Other Recommendations and Next Treatment mobility as tolerated Focus Precautions Other Precautions falls Recommendations To Nursing Amount of Assist Needed 1 Person Assist Discharge Recommendations PT Discharge Recommendations Home with 08/02 Assist Available,Home Health Transportation Needs at Discharge Private Vehicle
[2020-11-22 09:25] VITALS: BP 149/84; PULSE 88
[2020-11-22] MEDS: AMLODIPINE 5 MG TABLET PO (09:25)
[2020-11-22] MEDS: carvediloL 12.5 MG TABLET PO (09:25)
[2020-11-22] MEDS: ASPIRIN EC 81 MG TABLET PO (09:25)
[2020-11-22 09:27] VITALS: BP 149/84; PULSE 88
[2020-11-22] MEDS: ENOXAPARIN 40 MG/0.4 ML SYRINGE SUBCUT (09:27)
[2020-11-22] MEDS: LOSARTAN 50 MG TABLET PO (09:27)
[2020-11-22] MEDS: CITALOPRAM 10 MG TABLET 20 MG PO (09:27)
[2020-11-22] MEDS: SODIUM CHLORIDE 0.9% FLUSH 10 ML IV (09:27)
[2020-11-22] MEDS: TAMSULOSIN 0.4 MG CAPSULE PO (09:28)
--- NOTE | 2020-11-22 11:21 | PC.NURSE ---
Dayshift Note: Pt received on RA, SPO2 96%. Pt denies SOB. Lungs CTA. Pt is more lucid today than yesterday. Pt continues to have some confusion, frustration and short term memory loss. Plan of care discussed with care team and patient. Pt oriented to self and place only. Pt has an intermittently irregular cardiac rhythm, but is not currently on telemetry. Pt with history of paroxysmal a-fib. BP WNL. Good pulses, no edema. Pt denies nausea. Pt has had multiple loose stools this shift. Miralax held this am for diarrhea yesterday and loose stools. Pt's right leg is bowed and affects pt's gait. Pt uses FWW. Low exercise tolerance. Working with PT and OT. Call light in reach, pt demonstrated how to use call light appropriately. Bed and chair alarms used at all times.
--- NOTE | 2020-11-22 12:03 | OT.IP.TRT ---
Occupational Therapy Treatment Note M2 OT-IP Current Condition Start: 11/21/20 13:48 Freq: Status: Active Protocol: Document 11/21/20 13:50 [facility] (Rec: 11/21/20 14:11 [facility] [id number]) Occupational Therapy Current Condition Current Condition Evaluation Date 11/21/20 Treatment Diagnosis Altered mental status, decreased mobility Diagnosis Onset Date 11/20/20 M3 OT- IP Subjective and Pain Start: 11/21/20 13:48 Freq: Status: Active Protocol: Document 11/22/20 12:35 [facility] (Rec: 11/22/20 12:46 [facility] [id number]) OT- Subjective Occupational Therapy Visit Type Type Treatment Note Visit Start Time 11:35 Visit Stop Time 12:03 Total Visit Minutes 28 Occupational Therapy Visit Comments Patient Comments Pt states wanting to use the bathroom. Patient/Caregiver Goals TO go home. OT Pain Assessment Pain When Pain Assessed At Rest Pain Present Pain Present Denied Pain M4 OT- IP ADL's Start: 11/21/20 13:48 Freq: Status: Active Protocol: Document 11/22/20 12:35 [facility] (Rec: 11/22/20 12:46 [facility] [id number]) OT [id number] Comments OT Self-Feeding Comments NOt at meal time. OT ADL-Grooming Comments OT Grooming Comments Pt not wanting to perform at this time. OT ADL-Dressing General Eval Lower Body Dressing Ability Maximum Assistance Areas Needing Assistance Underpants/Brief,Socks Comments OT Dressing Comments Assist to bertram sock and brief over his feet and up over his hips. OT ADL-Toileting General Evaluation Toileting Ability Maximum Assistance Areas Needing Assistance Manage Clothing,Perform Perineal Hygiene Comments OT Toileting Comments Pt able to stand with grab bar and FWW with SBA while assisting pt for all his hygiene and brief management needs. Pt states feels plugged up but not able to have a bowel movement. Able to assist to clean pt as soiled in anus region, but not able to get his bowel movement out, nursing notified. OT ADL-Bathing Comments OT Bathing Comments Not performed. M5 OT- IP IADL's Start: 11/21/20 13:48 Freq: Status: Active Protocol: Document 11/21/20 13:50 [facility] (Rec: 11/21/20 14:11 [facility] [id number]) OT-Instrumental Activities of Daily Living Home Safety Awareness Awareness of Need for Assistance at Home Decreased Awareness Ability to Problem Solve Emergency Unable to Problem Solve Situations Medication Management Medication Management Caregiver Administers Money Management Money Management Caregiver Provides Assistance Meal Preparation Meal Preparation Caregiver Provides Assist Digital Associate Digital Associate Caregiver Provides Assist Driving Driving Concerns Identified Regarding Safety M6 OT- IP Functional Cognition Start: 11/21/20 13:48 Freq: Status: Active Protocol: Document 11/22/20 12:35 [facility] (Rec: 11/22/20 12:46 [facility] [id number]) Cognitive Factors Limiting Selfcare Function Cognitive Ability Level of Alertness Alert,Confusional State Patient Orientation Name Attention Span Ability Capable of Focused Attention, Unable to Focus Ability to Follow Commands Able to Follow One Step Commands with Increased Time, Able to Follow One Step Commands with Repetition Memory Description 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,Working Impaired Safety Awareness Underestimates Need for Assistance Problem Solving Ability Unable to Identify Errors, Needs Assist to Identify Solutions Cognitive Comments Cognitive Assessment Comments Pt needing step by step concrete commands. Having to break down bed mobility into steps for the pt. Pt able to get his word out better today. Decreased safety awareness, short term memory still persisting. M7 OT- IP Mobility and Balance Start: 11/21/20 13:48 Freq: Status: Active Protocol: Document 11/22/20 12:35 [facility] (Rec: 11/22/20 12:46 [facility] [id number]) OT- Bed Mobility Assessment Rolling Type of Rolling Roll to Right Level of Assistance Contact Guard Assistance,1 Person Assistance Supine to Sit Supine to Sit Assist Minimal Assistance Scooting Scooting to Edge of Bed Contact Guard Assistance OT-Transfer Assessment Sit to and From Stand Sit to and from Stand Contact Guard Assistance,1 Person Assistance,Use of Upper Extremities Transfers Transfer Ability Minimal Assistance Technique Transfer Destination Bed,Chair,Toilet Transfer Technique Stand Step Pivot Devices Transfer Assistive Devices Gait Belt,Front Wheeled Walker Comments Mobility Comments DIANE from sidelying to sitting on the edge of the bed and MAX vc for sequence. CGA to stand to FWW, vc to push up from the bed. DIANE with FWW as still needing occasional assist to guide the FWW to the left. OT- Gait Assessment Comments Gait Ability Comments One person assist today with FWW, much improved. OT- Balance Assessment Sitting Balance and Reactions Static Sitting Balance Ability Good Dynamic Sitting Balance Ability Fair M8 OT- IP Objective Assessments Start: 11/21/20 13:48 Freq: Status: Active Protocol: Document 11/21/20 13:50 [facility] (Rec: 11/21/20 14:11 [facility] [id number]) OT Gross Range of Motion Upper Extremity Range of Motion ROM Impairments Grossly WFL and able to assist for ADl needs. OT Strength Comments Strength Comments BUE 4/5 OT- Coordination Assessment Upper Extremity Finger to Nose Test Right UE Impaired Comments Coordination Comments Right finger off by 3mm, left finger unable to touch the tip of his nose and needing to redirect himself two times before able to touch his nose. OT Sensation Assessment Comments Summary Comments Intact for light touch. M9 OT- IP Assessment and Plan Start: 11/21/20 13:48 Freq: Status: Active Protocol: Document 11/22/20 12:35 [facility] (Rec: 11/22/20 12:46 [facility] [id number]) OT Summary Assessment and Plan Potential Rehabilitation Potential Good Analytic Complexity at Evaluation Moderate Summary OT Impairments Strength,Balance,Functional Cognition,Functional Mobility, Toileting,Bathing,Shower Transfers,Activity Tolerance Progress Towards Goals Progressing Toward Goals Assessment Summary Pt noted improvement with balance and use of FWW to get to the toilet today and only needing one person assist. Pt still requires extensive assist for ADL needs and vc to help sequence through tasks. Pt appears closer to his baseline function at this time . Pt would still benefit from skilled rehab versus home with 11/02 assist and home health. Goals Grooming Goal Moderate Assistance Toileting Goal Moderate Assistance Bathing Goal Moderate Assistance Toilet Transfer Goal Contact Guard Assistance Shower Transfer Goal Minimal Assistance Patient/Caregiver Education Goal Caregiver Independent Assisting Patient Days to Meet Goals 9 Frequency of Treatment Frequency Of Treatment Once a Day Treatment Plan OT Treatment Plan ADL Training,Functional Cognition Training,Functional Mobility,Patient/Family Education,Discharge Planning Discharge Recommendations OT Discharge Recommendations Home vs SNF Transportation Needs at Discharge Wheelchair/Cabulance
[2020-11-22] MEDS: INSULIN LISPRO 100 UNIT/ML 3ML VIAL SUBCUT (12:27)
--- NOTE | 2020-11-22 14:43 | CM.DPC ---
Case discussed in Team Rounds with Dr. Thomas. (see her addendum to yesterday's H&P re ? of normal pressure hydrocephalis). Dr. Thomas confirms that today she is reviewing this case with a neuro hospitalist in order to get recommendations regarding lulmbar puncture and eval for ROLLER HELPER shunt. She has discussed this with pt's and pt, both of whom are argreeable with this plan. RE HH: did hear back from [facility] yesterday and told that they are not following any more patients, even those whom are aleady on service. Did hear from the OT who called back from [facility] that some of the staff from [facility] who are currently working with this pt and family are now going to work with [facility]. Have not discussed this yet with TJ or pt's as the focus has shifted to the ? of dx and tx plan. Dr. Thomas did start the Face/Face document....DCP team to follow up once the d/c dispo and plan is clearer.
--- NOTE | 2020-11-22 15:22 | P.DS_ITS ---
History of Present Illness History of Present Illness Date Patient Seen: 11/22/20 Chief complaint: Mental status changes concerning for a CVA Narrative: Sidney Ji is a 80-year-old male with dementia, atrial fibrillation, CAD, DM 2, HTN presented to the ED with mental status changes concerning for a CVA. This is the patient's third admission in the past 6 months and he is known to me. The patient is unable to provide me with the history mostly speaking in 1 word sentences and when conducting the review of systems states no to all systems. I spoke to the son CINDY who lives with him, and he stated that he has had about a week and half ago symptoms of physical weakness, being unable to walk, having balance issues, and able to carry his body. Yesterday in the afternoon he started speaking in word salad became more increasingly confused did not really know where he was, and continues to have chronic constipation. He denies that the patient has fallen in the home since he was last admitted 2 months ago. The patient is noted to be a regular marijuana user however the son stated that the patient had not had anything to smoke for 2 days nor was he aware of any changes in the marijuana formulation the patient had purchased from. The patient continues to have presence of THC in his urine. Patient was admitted by me in July for weakness and mental status changes and then again in September for atrial fibrillation. Head CT findings today were ?No acute intracranial process. Ill-defined inflammatory stranding possible cystic focus in the suboccipital soft tissues as above. Please correlate clinically and with direct visual inspection. Abdominal pelvic CT indicated Mild cardiomegaly and pericardial effusion. Severe coronary atherosclerosis.Patient is afebrile, blood pressure 186/88, heart rate 86, respiratory rate 20, oxygen saturation 97% on room air, he weighs 76.5 kg with a BMI of 25.6. White count is normal, hemoglobin and hematocrit is 10.8 and 31.5 respectively, platelet count 179, glucose is 146, calcium 8.2, 8.8 corrected, he has few urine bacteria, THC is positive, and COVID-19 PCR is negative. Discharge Providers Provider Date of admission: 11/20/20 23:30 Discharge Date: 11/22/20 Primary care physician: Reji Patterson MD Consults: 11/21/20 00:16 Consult to Dietitian, Adult Routine Comment: Reason For Exam: weight loss 11/21/20 00:44 Consult to Physical Therapy Evaluate & Treat Comment: Global weakness Physician Instructions: Evaluate and Treat 11/21/20 00:50 Consult to Occupational Therapy Evaluate & Treat Comment: cognitive eval Physician Instructions: Evaluate and treat Consult to Speech Therapy Evaluate & Treat Comment: word salad Physician Instructions: Evaluate and treat 11/21/20 02:00 Consult to Discharge Planning Routine Comment: SNF or better support setting? 11/22/20 15:20 Consult to Home Health Routine Comment: Reason For Exam: Home Health upon DC Discharge provider: Kaylynn Thomas MD Summary Hospital Course Discharge Diagnosis: 1. 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 Dementia 3. Atrial fibrillation 4. Coronary disease 5. Diabetes 6. Acute encephalopathy, etiology unclear 7. Asymptomatic bacturia Hospital Course: Patient was admitted to the hospital for evaluation of altered mental status, gait instability, in the setting of baseline dementia pain there was concern that the patient may have a stroke. Patient underwent MRI to r/o stroke. MRI findings are as follows: No findings of acute or subacute infarction can be seen. Note is made of age-appropriate brain parenchymal volume loss and chronic small vessel ischemic changes. The degree of prominence of the lateral ventricles is disc proportion to the degree of sulcal atrophy. Please consider normal pressure hydrocephalus. BRAIN MR ANGIOGRAM: No significant proximal occlusion can be seen.NECK MR ANGIOGRAM: Within the arteries of the neck. Patient was evaluated by PT and able to ambulate with a walker. He was felt to be back to his baseline. The patient had no further confusion. Given the MRI findings that suggested Normal pressure hydrocephalus the patient will be referred by his PCP to a NPH specialist ( In [place]) He will need a walk test and large volume lumbar puncture to determine if CHERRY SORTER shunting would be beneficial. Patient had a urine culture done revealing Gram Negative Rods. As the patient was asymptomatic, he was not treated with antibiotics. The findings/ plans were discussed with the patient, his , and son CINDY. He will be discharged home this evening with plans for outpatient work up. Status at Discharge Cognitive/behavioral status at discharge: at baseline, confused Functional status at discharge: uses cane/walker Overall status at discharge: patient is back to baseline Time Spent with Patient Time spent: Less than 30 minutes Exam Vital Signs (past 8 hours): - 11/22/20 08:00 11/22/20 09:25 11/22/20 09:27 Temperature 98.2 F Pulse Rate 87 88 88 Respiratory Rate 18 Blood Pressure 149/84 H 149/84 H 149/84 H Pulse Oximetry 98 Oxygen Delivery Method Room Air Oxygen Flow Rate 0 Narrative Exam Narrative: Pleasant gentleman in no obvious distress Lungs: Clear to auscultation Cardiac exam: Regular rate and rhythm normal S1-S2 Abdomen: Soft nontender nondistended Extremities: No edema Objective Labs Result Diagrams: 11/21/20 04:20 11/21/20 04:22 [facility] Medical History Atrial fibrillation CAD (coronary artery disease) Dementia Diabetes Hyperlipidemia Hypertension Marijuana smoker, continuous Urinary incontinence Surgical History History of coronary artery stent placement Family History (Updated 11/21/20 @ 01:35 by CAROLANN Patel) Other Unknown family medical history Social History household members: spouse and family Smoking Status: Former smoker alcohol intake: former Discharge Assessment & Plan Assessment and Plan Assessment: 1. 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 Gait disturbance 3. Dementia 4. Incontinence 5. Hypertension 6. Type 2 diabetes 7 hyperlipidemia Asymptomatic bacteria Plan of Treatment: Discharge home on current medication Follow-up with Dr. Reji Patterson. Patient should be referred to [facility] for evaluation of Normal Pressure Hydrocephalus, by Neurology in the [facility] clinic. Discharge Plan Discharge Plan Patient Disposition: Home Discharge orders & Medications Prescriptions: Continued carvedilol 12.5 mg tablet 12.5 tab PO BID RF: 0 clopidogrel 75 mg tablet 75 mg PO DAILY RF: 0 citalopram 20 mg tablet 20 mg PO DAILY RF: 0 buspirone 10 mg tablet 10 tab PO BID RF: 0 pravastatin 20 mg tablet 20 mg PO QPM RF: 0 amlodipine 5 mg tablet 5 mg PO DAILY RF: 0 metformin 1,000 mg tablet 1,000 mg PO BIDAC RF: 0 losartan 50 mg tablet 50 mg PO DAILY RF: 0 tamsulosin 0.4 mg capsule 0.4 mg PO BID RF: 0 trospium 20 mg tablet 20 mg PO DAILY RF: 0 quetiapine 50 mg tablet 25 mg PO BEDTIME RF: 0 polyethylene glycol 3350 [Miralax] 17 gram Powder In Packet 17 g PO DAILY RF: 0 trazodone 100 mg Tablet 100 mg PO BEDTIME PRN (Reason: Insomnia) RF: 0 insulin glargine 100 unit/mL (3 mL) Insulin Pen 10 unit SUBCUT QPM RF: 0 ibuprofen 600 mg Tablet 600 mg PO Q8H PRN (Reason: Pain (Scale Score 1-3)) RF: 0 Follow up/Referrals: Reji Patterson MD [Primary Care Provider] - Discharge Health Status Multidrug resistant organism: No MDRO Diet/Activity/Treatments Diet: Low-fat and Low-sodium Skin/Wound/Dressing Care Report to your healthcare provider any signs of infection, such as:: chills, fever Discharge Data Primary Care Provider: Reji Patterson Quality VTE Deep Vein Thrombosis/Pulmonary Embolism Present on Admission: No
--- NOTE | 2020-11-22 15:55 | CM.DPNOTE ---
DC Note DC Note According to Dr Thomas, patient medically ready for DC. Dr Thomas plans to discuss DC and outpatient recommendations w/spouse this afternoon. Dr Thomas requests HH, discussed w/CM Nona and am assisting in the coordination of DC details. Spouse agreeable to , used [facility] previously and [facility] is no longer providing services. Gave referral to [facility], spouse agreeable and requested RN/PT/OT/[facility] ATTENDANT/[employer] GARDEN Placed call to Ermelinda at [facility] to review referral, referral faxed w/ HH order, completed and signed F2F and clinical/ therapy records Discussed w/evening RN who has spoken w/spouse and she plans to transport patient home if patient DC tonight; DC order still pending from Dr Thomas. No DC Summary available to send to [facility], Ermelinda made aware Brochure left w/ RN to include in patient's DC ppk; for spouse Plan: DC home expected this evening, w/spouse to assist, Signature , and close outpatient f/u BILL Rivas
[2020-11-22 16:20] VITALS: BP 161/74; PULSE 82; RESP 17; TEMP 36.8; O2SAT 97
--- NOTE | 2020-11-22 16:36 | ST.IPTN ---
Visit Care Team Role Provider Type Reji Patterson MD Primary Care Provider Non-Staff Address: [address] [place] [address], [id number] Colby Herrera MD Emergency Provider Physician Referring Provider Address: [address] [place] [address], [id number] CAROLANN Patel Admit Provider Physician Attending Provider Address: [address] [place] [address], [id number] MALTED MILK MASHER Treatment Note MALTED [employer] MASHER Clinical Instructor Line Start: 11/22/20 15:09 Freq: Status: Active Protocol: Document 11/22/20 15:09 LNK (Rec: 11/22/20 15:09 [id number]) Clinical Instructor Signature Clinical Instructor Clinical Instructor Yes MALTED MIL[employer] MASHER Treatment Note Start: 11/22/20 11:51 Freq: Status: Active Protocol: Document 11/22/20 11:51 HM (Rec: 11/22/20 12:10 HM [id number]) Speech Pathology Treatment Note Session Time Visit Start Time 09:50 Visit Stop Time 10:10 Total Visit Minutes 20 Visit Information Visit Number 2 Setting Treatment Setting Acute Care Visit Type Note Type Treatment Note General Information General Information Patient with new onset word salad. Previous baseline of dementia. Subjective Identification Type Name,Address Identification Reconciled With Medical Record Others Present Student Observations/Patient Presentation Patient sitting up in chair in room. Agreed to answer some questions and was cooperative. Chief Complaint(s) Cognitive Patient Knowledge/Awareness of MALTED MILK MASHER Role Good in Treatment Objective Short Term Goals Morro will answer orientation questions with 75% accuracy. Morro will complete word finding exercises with 75% accuracy. Treatment Activities Pt answered personal questions with 83% accuracy. Pt needed a choice of two options to state the current year. Accurately stated how long he' s been in the hospital. Pt unable to accurately state current president or his own age. Assessment Patient Response to Treatment Good Rehab Potential Fair Impairments Identified Cognitive-Linguistic Skills, Dementia Additional Impairments Identified Hearing loss Progress Towards Goals Good Progress Assessment of Overall Progress Improving Assessment of Improvement Pt displays improvement from yesterday as he immediately stated he is in the hospital. When asking questions, recommend providing choices of possible answers when possible. Reviewed with Patient Progress Being Made Patient/Caregiver Understanding Fair
== END 2020-11-22 16:40 | disposition home or self-care (01) | DRG 71 ==
LOC: ED 23:00 → ICU 11-21 01:35 → AC 11-21 14:40
PROVIDERS: Admitting Provider Nurse Practitioner Family; Emergency Provider Emergency Medicine; PCP Internal Medicine; Referring Provider Emergency Medicine; Visit Provider Nurse Practitioner Family
DX: G93.40 Encephalopathy, unspecified (principal); G91.2 (Idiopathic) normal pressure hydrocephalus; F03.90 Unspecified dementia, unspecified severity, without behavioral disturbance, psychotic disturbance, mood disturbance, and anxiety; I48.0 Paroxysmal atrial fibrillation; R63.4 Abnormal weight loss; Z68.25 Body mass index [BMI] 25.0-25.9, adult; I10 Essential (primary) hypertension; E11.9 Type 2 diabetes mellitus without complications; I25.10 Atherosclerotic heart disease of native coronary artery without angina pectoris; E78.5 Hyperlipidemia, unspecified; Z20.822 Contact with and (suspected) exposure to COVID-19; Z87.891 Personal history of nicotine dependence; Z66 Do not resuscitate; Z79.4 Long term (current) use of insulin
CPT/HCPCS: 36415; 36592; 70450; 70548; 70553; 71045; 74176; 80048; 80053; 80061; 80305; 81003; 81015; 82962; 85025; 85610; 85730; 87077; 87086; 87186; 87635; 87797; 92523; 93005; 93306; 96360; 96361; 97116; 97129; 97162; 97166; 97530; 97535; 99284; 99285; 99406; C9803; J1650; J1815